=== PATIENT | male | born 1955 | race Caucasian/White ===

== ENCOUNTER → 2017-12-18 | Outpatient (CLI) | payer MEDICARE, BC ==
--- NOTE | 2017-12-18 17:47 | RADIOLOGY REPORT (SQ) ---
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 CONTRAST TYPE AND DOSE: contrast/concentration: Isovue 370.00 mg/ml; Total Contrast Delivered: 88.0 ml; Total Saline Delivered: 69.0 ml RENAL FUNCTION: Creatinine 0.9 TECHNIQUE: CT scan of the chest performed using helical scanning technique with dynamic intravenous contrast injection. Images reviewed with lung, soft tissue and bone windows. Reconstructed coronal a nd sagittal MPR images reviewed. All images stored on PACS. CT scan of the abdomen performed with intravenous and with oral contrastusing helical scanning techni que with dynamic intravenous contrast injection. Images reviewed with lung, soft tissue and bone win dows. Reconstructed coronal and sagittal MPR images reviewed. Delayed images for evaluation of the urinary system also acquired and evaluated. All images stored on PACS. All CT scanners at this facility use dose modulation, iterative reconstruction, and/or weight based d osing when appropriate to reduce radiation dose to as low as reasonably achievable (ALARA). [facility]: Dose Right [facility]: CareDose [facility]: Dose Right [facility]: Teradose 4D [facility]: [employer] RADIATION DOSE: CT Rad equipment meets quality standard of care and radiation dose reduction techniq ues were employed. CTDIvol: 8.5 - 9.5 mGy. DLP: 1029 mGy-cm. . LIMITATIONS: None. FINDINGS: CHEST: LUNGS AND PLEURA: No opacities, nodules, masses. No pneumothorax. No effusions. HILAR AND MEDIASTINAL STRUCTURES: Patient is post esophagectomy and gastric pull-through procedure wi th the stomach coursing along the posterior rightward mediastinum. HEART AND VASCULAR STRUCTURES: No cardiomegaly. Heavily calcified LAD and proximal circumflex brock ry arteries. No pericardial effusion. HARDWARE: None. THYROID AND OTHER SOFT TISSUES: No masses. No adenopathy. BONES: New OTHER: No other significant finding. ABDOMEN AND PELVIS: LIVER: Diffuse fatty infiltration of the liver with low attenuation. On axial image 29, a 2.4 x 1.5 cm nodule is present along the superficial surface right lobe liver segment 6. This is abnormal but nonspecific. Patient appears to be post resection left lobe liver. SPLEEN: Normal size. No focal lesions. PANCREAS: No masses. No significant calcifications. No adjacent inflammation or peripancreatic fluid collections. Pancreatic duct not dilated. GALLBLADDER: No identified stones by CT criteria. No inflammatory changes to suggest cholecystitis. ADRENAL GLANDS: No significant masses or asymmetry. RIGHT KIDNEY AND URETER: No solid masses. No significant calcification. No hydronephrosis or hydroure ter. LEFT KIDNEY AND URETER: No solid masses. No significant calcification. No hydronephrosis or hydrouret er. AORTA AND VESSELS: No aneurysm. No dissection. About 50% narrowing of the proximal celiac and proxim al superior mesenteric arteries is seen from atherosclerotic plaque. Duplicated right renal artery, single left renal artery. RETROPERITONEUM: No retroperitoneal adenopathy, hemorrhage or masses. BOWEL AND PERITONEAL CAVITY: Patient drank oral contrast. There is no evidence of bowel obstruction. APPENDIX: Normal. ABDOMINAL WALL: No masses. No hernias. BONES: No significant or acute findings. OTHER: No other significant finding. IMPRESSION: Post esophagectomy with gastric pull-through. Profound fatty infiltration of the liver. Along the superficial aspect right lobe liver segment 6, a 2.4 x 1.5 cm nodule is present of uncertain clinical significance. Comparison with any older outsid e studies would be useful for followup. Post resection left lobe liver. TECHNICAL DOCUMENTATION: JOB ID: [id number] Quality ID # [id number]: Final reports with documentation of one or more dose reduction techniques (e.g., Au tomated exposure control, adjustment of the mA and/or kV according to patient size, use of iterative reconstruction technique) 2010 [employer]- All Rights Reserved Reading location - IP/workstation name: [email or web address]
== END ==
LOC: RAD 08:55
PROVIDERS: ATTEND Internal Medicine Hematology & Oncology
DX: C15.5 Malignant neoplasm of lower third of esophagus (principal)
CPT/HCPCS: 71260; 74160; 82565

== ENCOUNTER 2019-03-13 11:47 | Emergency (ER) | payer MEDICARE, BC ==
[2019-03-13] MEDS ORDERED: NORMAL SALINE 1000 ML 1,000 ML IV ONE ×2 (12:05→15:35)
[2019-03-13 13:11] LABS: VENOUS BLOOD BASE EXCESS -1.4 mmol/L; VENOUS BLOOD HCO3 23.2 mmol/L (20-32); VENOUS BLOOD PH 7.39 (7.30-7.42)
[2019-03-13 13:12] LABS: ABSOLUTE BASOPHILS # (AUTO) 0.1 10^3/uL (0.0-0.2); ABSOLUTE LYMPHOCYTES (AUTO) 0.5 10^3/uL (0.5-4.7); ABSOLUTE MONOCYTES (AUTO) 0.8 10^3/uL (0.1-1.4); ABSOLUTE NEUT (AUTO) 7.9 10^3/uL (1.7-8.2); BASOPHILS % (AUTO) 0.6 % (0-2); EOSINOPHILS % (AUTO) 0.3 % (0-6); HEMATOCRIT 36.7 % (37.9-51.0); HEMOGLOBIN 13.2 g/dL (13.5-17.0); LYMPHOCYTES % (AUTO) 5.6 % (13-45); MEAN CORPUSCULAR HEMOGLOBIN 37.9 pg (27.0-33.4); MEAN CORPUSCULAR HGB CONC 35.9 g/dL (32.0-36.0); MEAN CORPUSCULAR VOLUME 106 fl (80-97); PLATELET COUNT 159 10^3/uL (150-450); RED BLOOD COUNT 3.48 10^6/uL (4.35-5.55); RED CELL DISTRIBUTION WIDTH 12.5 % (11.5-14.0); SEGMENTED NEUTROPHILS % (AUTO) 84.5 % (42-78); TOTAL CELLS COUNTED % (AUTO) 100 %; WHITE BLOOD COUNT 9.4 10^3/uL (4.0-10.5)
[2019-03-13 13:16] LABS: INTERNATIONAL RATION (INR) 1.15; PROTHROMBIN TIME 14.8 SEC (11.4-15.4)
[2019-03-13 13:36] LABS: ALBUMIN 4.4 g/dL (3.5-5.0); ALKALINE PHOSPHATASE 72 U/L (38-126); ANION GAP 16 (5-19); ASPARTATE AMINO TRANSFERASE 61 U/L (17-59); BILIRUBIN,DIRECT 1.4 mg/dL (0.0-0.4); BILIRUBIN,TOTAL 3.8 mg/dL (0.2-1.3); BLOOD UREA NITROGEN 25 mg/dL (7-20); CALCIUM 10.2 mg/dL (8.4-10.2); CARBON DIOXIDE 23 mmol/L (22-30); CHLORIDE 101 mmol/L (98-107); GLUCOSE 109 mg/dL (75-110); POTASSIUM 3.3 mmol/L (3.6-5.0); TOTAL PROTEIN 7.4 g/dL (6.3-8.2)
[2019-03-13] MEDS ORDERED: POTASSIUM CHLORIDE 10 MEQ CAPSULE.ER PO ONE ×2 (15:35→18:01)
--- NOTE | 2019-03-13 15:44 | ER Document Report ---
ED General - General TRAVEL OUTSIDE OF THE [place] IN LAST 30 DAYS: No <MARIANNE GOLDEN - Last Filed: 03/14/19 03:33> <LE EPPERSON - Last Filed: 03/14/19 18:27> - General Chief Complaint: Decreased Appetite Stated Complaint: WEAKNESS Time Seen by Provider: 03/13/19 15:11 - HPI Notes: Patient is a 63-year-old male, with a history of esophageal cancer, status post esophagectomy and gastric pull-through in 2013, who presents to the emergency department for evaluation of increased weakness, difficulty walking. 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 He states his been worsening over the last several weeks. He has had diminished p.o. intake, not really eating or drinking much. He states sometimes it hurts, sometimes is just "too hot to eat." He has occasional abdominal pain which is not out of the ordinary for him, primarily is his neuropathic pain. He has been taking extended release gabapentin for this, but is unsure as to whether or not he has been taking it for the last week or so. He is currently living alone, has no real resources. He is going to move in with his sister shortly. (MARIANNE GOLDEN) - Related Data Allergies/Adverse Reactions: No Known Allergies Allergy (Unverified 03/13/19 12:04) Past Medical History - Social History Smoking Status: Former Smoker Chew tobacco use (# tins/day): No Frequency of alcohol use: Occasional Drug Abuse: None Family History: Other - Lupus Patient has suicidal ideation: No Patient has homicidal ideation: No - Past Medical History Cardiac Medical History: Reports: Hx Hypercholesterolemia, Hx Hypertension Pulmonary Medical History: Reports: Hx COPD Malignancy Medical History: Reports Other - Esophageal cancer, s/p esophagectomy, chemo and radiation GI Medical History: Reports: Hx Gastroesophageal Reflux Disease Past Surgical History: Reports: Hx Orthopedic Surgery - L ankle, R hand, R elbow, Other - Esophagectomy with gastric pull through <MARIANNE GOLDEN - Last Filed: 03/14/19 03:33> Review of Systems - Review of Systems Constitutional: See HPI EENT: No symptoms reported Cardiovascular: No symptoms reported Respiratory: No symptoms reported Gastrointestinal: See HPI <MARIANNE GOLDEN - Last Filed: 03/14/19 03:33> Physical Exam <MARIANNE GOLDEN - Last Filed: 03/14/19 03:33> - Vital signs Vitals: Resp Pulse Ox 17 100 03/13/19 12:05 03/13/19 12:05 - Notes Notes: Vital signs reviewed, please refer to chart. Head is normocephalic, atraumatic. Pupils equal round, reactive to light. Neck is supple without meningismus. Heart is regular rate and rhythm. Lungs are clear to auscultation bilaterally. Abdomen is scaphoid, nontender, normoactive bowel sounds throughout. Extrem ities without cyanosis, clubbing. Posterior calves are nontender. Peripheral pulses are equal. Skin is warm and dry. Patient is awake, alert, oriented x3. Cranial nerves II - XII are grossly intact without focal neurological deficits. Strength is plus 3 out of 5 bilateral upper and lower extremities. Sensation is diminished to light touch to all 4 extremities. Reflexes symmetrical. Intact [id number], rapid alternating movements, [id number]. (MARIANNE GOLDEN) Course - Laboratory Result Diagrams: 03/13/19 12:55 03/13/19 12:55 - Diagnostic Test Radiology reviewed: Reports reviewed <MARIANNE GOLDEN - Last Filed: 03/14/19 03:33> - Laboratory Result Diagrams: 03/13/19 12:55 03/13/19 12:55 <LE EPPERSON - Last Filed: 03/14/19 18:27> - Re-evaluation Re-evalutation: 03/13/19 20:01 Presents emergency department for evaluation. He has significant overall weakness, is unable to stand. Is not a physical therapy or occupational therapy evaluations as of yet. He currently lives alone. He is going to move in with the sister, but they do not have any resources in place to make that happen sooner rather than later. He does not meet any admission criteria. I did go ahead and replace his potassium. His magnesium was found to be unremarkable. At this point he did get case management involved. They state that they are able to help him with resources but not at this time. It would have to wait until tomorrow morning. As he does not meet any admission criteria, will hold the patient is a social hold overnight. He is amenable to this plan. 03/14/19 01:33 I was notified by nursing that the patient was found down on the floor in the room. Evidently he attempted to urinate in the urinal, dropped the urinal. He called out for help, but none came, so he attempted to stand on his own to retrieve the urinal. He fell at that time. He is unsure but believes he may have lost consciousness. He complains of neck pain. He states his tennis is not up-to-date. I went to evaluate the patient and his c-collar was placed. CT scan of the head and neck were ordered. He does have a superficial 1.5 lace ration to the right lateral brow, no gaping wound, no foreign body. He does have a superficial 1 cm laceration to the right lower lip. No active bleeding. The patient complained of some nausea, Zofran given. Updated tetanus ordered. We will continue to monitor. (MARIANNE GOLDEN) - Vital Signs Vital signs: Temp Pulse Resp BP Pulse Ox 98.5 F 107 H 24 H 159/108 H 100 03/14/19 17:01 03/13/19 12:07 03/14/19 17:47 03/14/19 17:47 03/14/19 17:47 - Laboratory Laboratory results interpreted by me: 03/13/19 03/13/19 03/13/19 12:25 12:55 12:55 RBC 3.48 L Hgb 13.2 L Hct 36.7 L MCV 106 H MCH 37.9 H Lymph % (Auto) 5.6 L Seg Neutrophils % 84.5 H Potassium 3.3 L BUN 25 H POC Glucose 117 H Total Bilirubin 3.8 H Direct Bilirubin 1.4 H AST 61 H Urine Protein Urine Ketones Urine Urobilinogen 03/13/19 15:24 RBC Hgb Hct MCV MCH Lymph % (Auto) Seg Neutrophils % Potassium BUN POC Glucose Total Bilirubin Direct Bilirubin AST Urine Protein 30 H Urine Ketones 20 H Urine Urobilinogen 4.0 H - EKG Interpretation by Me Additional EKG results interpreted by me: 03/13/19 20:02 Sinus tachycardia with a rate of 140s per minute. Normal axis and intervals. Nonspecific ST changes, but no acute changes concerning for ischemia or infarction. (MARIANNE GOLDEN) Discharge <MARIANNE GOLDEN - Last Filed: 03/14/19 03:33> <LE EPPERSON - Last Filed: 03/14/19 18:27> - Discharge Clinical Impression: Generalized weakness, Polyneuropathy, Head injury, Facial abrasion, Strain of neck Failure to thrive Qualifiers: Failure to thrive age range: in adult Qualified Code(s): R62.7 - Adult failure to thrive Condition: Stable Disposition: HOME, SELF-CARE Instructions: Head Injury Precautions ([facility]), Neck Injury (Cervical Strain) ([facility]), Neuropathy ([facility]), Weakness ([facility]) Additional Instructions: You were evaluated here by case management, and further resources were made available. You need to continue to follow-up with primary care as well as pain management. Keep facial wound clean with soap and water. Follow-up with your primary care physician this week. Return to the ED with worsening or new concerning symptoms of any sort. Prescriptions: Oxycodone HCl/Acetaminophen [Percocet 5-325 mg Tablet] 1 tab PO Q4HP PRN #10 tablet PRN Reason:
[2019-03-13] MEDS ORDERED: GABAPENTIN 300 MG CAPSULE PO ONE ×2 (15:52→17:45)
[2019-03-13 16:09] LABS: APPEARANCE,URINE CLEAR; BILIRUBIN,URINE NEGATIVE (NEGATIVE); COLOR,URINE AMBER; GLUCOSE, URINE NEGATIVE (NEGATIVE); KETONES,URINE 20 mg/dL (NEGATIVE); LEUKOCYTE ESTERASE,URINE NEGATIVE (NEGATIVE); NITRITE,URINE NEGATIVE (NEGATIVE); PROTEIN,URINE 30 mg/dL (NEGATIVE); URINE SPECIFIC GRAVITY 1.025
[2019-03-13] MEDS ORDERED: KETOROLAC TROMETHAMINE INJ/PF 30 MG/1 ML SDV IV ONE (17:04)
--- NOTE | 2019-03-13 22:18 | EKG REPORT ---
SEVERITY:- BORDERLINE ECG - SINUS TACHYCARDIA BORDERLINE T WAVE ABNORMALITIES : Confirmed by: Jennifer Kapoor MD 13-Mar-2019 22:17:57
[2019-03-14] MEDS ORDERED: ONDANSETRON HCL INJ/PF 4 MG/2 ML SDV IV ONE (01:31)
[2019-03-14] MEDS ORDERED: DIPH/PERTUSS(ACELL)/TETANUS VAC/PF 0.5 ML SYR (>=10YO) IM ONE (01:32)
--- NOTE | 2019-03-14 02:22 | RADIOLOGY REPORT (SQ) ---
CT BRAIN AND CERVICAL SPINE EXAM DATE: 03/14/2019 1:32 AM CDT HISTORY: Trauma. COMPARISON: None. TECHNIQUE: CT scan of the brain and cervical spine without IV contrast. This exam was performed according to our departmental dose-optimization program, which includes automated exposure control, adjustment of the mA and/or kV according to patient size and/or use of iterative reconstruction technique. FINDINGS: BRAIN: The ventricles, cisterns, and sulci are age-appropriate. No evidence of acute infarction, intracranial hemorrhage, extra-axial fluid collection, or midline shift. No air-fluid levels are seen in the paranasal sinuses to suggest acute sinusitis. No depressed skull fracture. CERVICAL SPINE: No acute cervical fracture or prevertebral soft tissue swelling. There is straightening of the normal cervical lordosis, which may be due to cervical collar, muscle spasm, or patient positioning. The disc spaces and facet joints are grossly intact. No high-grade spinal canal stenosis. IMPRESSION: 1. No acute intracranial hemorrhage. 2. No acute fracture or subluxation of the cervical spine.
--- NOTE | 2019-03-14 15:03 | RADIOLOGY REPORT (SQ) ---
EXAM DESCRIPTION: CT SOFT TISSUE NECK WITH; CT CHEST WITH; CT ABD/PELVIS WITH IV ORAL COMPLETED DATE/TIME: 03/14/2019 2:46 pm REASON FOR STUDY: Hx CA esoph surg 5 yrs, can't swallow pills/food COMPARISON: CT chest and abdomen, 12/18/2017 CONTRAST TYPE AND DOSE: contrast/concentration: Isovue 350.00 mg/ml; Total Contrast Delivered: 77.0 ml; Total Saline Delivered: 67.0 ml RENAL FUNCTION: GFR > 60. TECHNIQUE: CT scan of the neck performed using helical scanning technique with dynamic intravenous c ontrast injection. Images reviewed with lung, soft tissue and bone windows. Reconstructed coronal an d sagittal MPR images reviewed. All images stored on PACS. CT scan of the chest performed using helical scanning technique with dynamic intravenous contrast inj ection. Images reviewed with lung, soft tissue and bone windows. Reconstructed coronal and sagittal MPR images reviewed. All images stored on PACS. CT scan of the abdomen and pelvis performed with intravenous and with oral contrastusing helical scan gerald technique with dynamic intravenous contrast injection. Images reviewed with lung, soft tissue a nd bone windows. Reconstructed coronal and sagittal MPR images reviewed. Delayed images for evaluat ion of the urinary system also acquired and evaluated. All images stored on PACS. All CT scanners at this facility use dose modulation, iterative reconstruction, and/or weight based d osing when appropriate to reduce radiation dose to as low as reasonably achievable (ALARA). [facility]: Dose Right [facility]: CareDose [facility]: Dose Right [facility]: Teradose 4D [facility]: [employer] RADIATION DOSE: CT Rad equipment meets quality standard of care and radiation dose reduction techniq ues were employed. CTDIvol: 11.6 - 13.9 mGy. DLP: 2275 mGy-cm. . LIMITATIONS: None. FINDINGS: NECK: SOFT TISSUES: There is a superficial cutaneous inclusion cyst of the posterior soft tissues of the l eft neck. No other mass or other abnormality. OROPHARYNX AND LARYNX: No abnormality. LYMPH NODES: No lymphadenopathy. VASCULAR STRUCTURES: Carotid atherosclerosis. BONES: Disc degenerative disease of the cervical spine. CHEST: LUNGS AND PLEURA: Mild centrilobular emphysema. No opacities, nodules, masses. No pneumothorax. No effusions. HILAR AND MEDIASTINAL STRUCTURES: No identified masses or abnormal nodes. Redemonstrated postoperati ve findings of pull-through esophagectomy. HEART AND VASCULAR STRUCTURES: No aneurysm or dissection. No central pulmonary emboli. No pericardi al effusion. Coronary artery calcifications. HARDWARE: None. THYROID AND OTHER SOFT TISSUES: No masses. No adenopathy. BONES: No significant finding. OTHER: Thoracic spinal stimulator. ABDOMEN AND PELVIS: LIVER: Status post partial left hepatectomy. No masses. No dilated ducts. SPLEEN: Normal size. No focal lesions. PANCREAS: No masses. No significant calcifications. No adjacent inflammation or peripancreatic fluid collections. Pancreatic duct not dilated. GALLBLADDER: No identified stones by CT criteria. No inflammatory changes to suggest cholecystitis. ADRENAL GLANDS: No significant masses or asymmetry. RIGHT KIDNEY AND URETER: No solid masses. No significant calcification. No hydronephrosis or hydroure ter. LEFT KIDNEY AND URETER: No solid masses. No significant calcification. No hydronephrosis or hydrouret er. AORTA AND VESSELS: No aneurysm. No dissection. Renal arteries, SMA, celiac without stenosis. Calcifi c atherosclerosis. RETROPERITONEUM: No retroperitoneal adenopathy, hemorrhage or masses. BOWEL AND PERITONEAL CAVITY: No masses or inflammatory changes. No free fluid or peritoneal masses. APPENDIX: Normal. ABDOMINAL WALL: No masses. No hernias. PELVIS: No mass or free fluid. Normal bladder. BONES: No significant or acute findings. OTHER: No other significant finding. IMPRESSION: Redemonstrated postoperative findings of pull-through esophagectomy. There is no suspic ious soft tissue or other abnormality to explain reported dysphagia. Consider additional interrogati on via endoscopic visualization and fluoroscopy if anastomotic stricture or recurrent malignancy are suspected. TECHNICAL DOCUMENTATION: JOB ID: [id number] Quality ID # [id number]: Final reports with documentation of one or more dose reduction techniques (e.g., Au tomated exposure control, adjustment of the mA and/or kV according to patient size, use of iterative reconstruction technique) 2010 [employer]- All Rights Reserved Reading location - IP/workstation name: [email or web address]
--- NOTE | 2019-03-14 18:23 | ER Document Report ---
Doctor's Note Notes: 03/14/19 18:13 Rounds: I assumed care for this patient when my shift began this morning at 9 AM. The plan at that time was for discharge planning to assist the patient and his sister in being able to take care of the patient in her home. His complaint they brought him to the emergency department last night was progressive weakness over the past several weeks and decreased oral intake. Patient's past history is significant and that he had esophageal cancer surgery in October 2013, apparently successfully removing the cancer, followed by radiation and chemotherapy. I spoke with Dr. Barragan, patient's local oncologist, who reviewed the patient's record and informed me that the patient had successful surgery for his cancer in October 2013. She saw him this past October and she said he is due to have CT scans to make sure he has not had any recurrence of his cancer. Patient had fallen earlier in the morning, before he came on duty and hit the right scalp and right face and so they did a CT scan of his head and C- spine. Dr. Barragan said that the patient needed to have CT scan of the chest neck, and abdomen and pelvis. All of the studies were ordered. They eventually came back showing no evidence of any acute process. Patient had no evidence of any recurrent cancer. Had no evidence of any obstruction or blockage to passage of food. 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 Patient says he is not able to swallow any of his medications in pill form. Also says he has trouble eating solid foods. Can drink liquids. Patient's labs showed slight hypokalemia and he was given oral potassium. He was also given a couple liters of saline to replenish any loss of fluids that has occurred over the past week or so. Examining the patient, trying to get him to stand up, patient seems to have significant wobbly legs and unable to bear weight without significant assistance by examiners. Otherwise no significant examination findings. Patient does have some tenderness of the mid right scalp and a small cut of his right lip. Discharge planning was asked to participate in the plan disposition of the patient. She was able to arrange for equipment for the patient such as a walker and wheelchair and a portable toilet. I am not sure what is causing the patient's weakness of his legs or his inability to swallow pills because there is nothing abnormal on his CT scan and all of his chemistries have been pretty m uch corrected. I do not have anything else I can think of doing here in the emergency department at this time. Explained this to the family and wanted out to them the need to establish with a primary care provider who can coordinate any further consultations, evaluations, and care. 03/15/19 13:42 Late entry recollection: when patient was here yesterday, and we attempted to have patient stand, I also checked his lower extremity reflexes and he had very weak patella and Achilles reflexes. No clonus. I am not sure of the reason for these findings, ?medication side effects? Doubtful [place]? Yaw Mandujano MD
[2019-03-14 21:19] VITALS: BP 154/96
== END 2019-03-14 21:20 | disposition home or self-care (01) ==
LOC: ER 11:47
DX: S00.81XA Abrasion of other part of head, initial encounter (principal); S16.1XXA Strain of muscle, fascia and tendon at neck level, initial encounter; G62.9 Polyneuropathy, unspecified; R53.1 Weakness; R62.7 Adult failure to thrive; R63.0 Anorexia; X58.XXXA Exposure to other specified factors, initial encounter; Z87.891 Personal history of nicotine dependence; I10 Essential (primary) hypertension; J44.9 Chronic obstructive pulmonary disease, unspecified
CPT/HCPCS: 93005; 36415; 87040; 87086; 82962; 83735; 85025; 85610; 80053; 81001; 84484; 82803; 83605; 70450; 70491; 71260; 72125; 74177; 90715; 93010; 97530; 97163; L0120; A9270 ×2; J1885; J2405; J7030

== ENCOUNTER 2019-03-15 01:55 | Inpatient (IN) | payer MEDICARE, BC ==
--- NOTE | 2019-03-15 06:20 | ER Document Report ---
ED General - General Chief Complaint: General Weakness Stated Complaint: WEAKNESS Time Seen by Provider: 03/15/19 05:56 TRAVEL OUTSIDE OF THE [place] IN LAST 30 DAYS: No - HPI Notes: worsening weakness over a period of weeks he and sister live in an apartment together he was seen in the ED and discharged, subsequently fell twice from chair to floor, and was returned to the ED he has a h/o esophageal cancer, chronic pain, and neuropathy he denies fever, vomiting, diarrhea, cough, or any focal areas of pain or weakness at ED visit yesterday/day before, he had extensive evaluation - CT of head through pelvis as well as labs and urine w/o identifiable reason for decline. - Related Data Allergies/Adverse Reactions: No Known Allergies Allergy (Unverified 03/13/19 12:04) Past Medical History - Social History Smoking Status: Former Smoker Family History: Other - Lupus Patient has suicidal ideation: No Patient has homicidal ideation: No - Past Medical History Cardiac Medical History: Reports: Hx Hypercholesterolemia, Hx Hypertension Pulmonary Medical History: Reports: Hx COPD GI Medical History: Reports: Hx Gastroesophageal Reflux Disease Past Surgical History: Reports: Hx Orthopedic Surgery - L ankle, R hand, R elbow, Other - Esophagectomy with gastric pull through Review of Systems - Review of Systems Constitutional: Weakness EENT: No symptoms reported Cardiovascular: No symptoms reported Respiratory: No symptoms reported Gastrointestinal: No symptoms reported Genitourinary: No symptoms reported Male Genitourinary: No symptoms reported Musculoskeletal: No symptoms reported Skin: No symptoms reported Hematologic/Lymphatic: No symptoms reported Neurological/Psychological: No symptoms reported Physical Exam - Vital signs Vitals: Temp Resp Pulse Ox 97.7 F 23 H 100 03/15/19 02:04 03/15/19 02:04 03/15/19 02:04 Interpretation: Normal - General General appearance: Alert Notes: generally weak and frail in appearance w/ tremulousness throughout - HEENT Head: Normocephalic, Atraumatic Eyes: Normal Pupils: PERRL - Respiratory Respiratory status: No respiratory distress Chest status: Nontender Breath sounds: Normal Chest palpation: Normal - Cardiovascular Rhythm: Regular Heart sounds: Normal auscultation Murmur: No - Abdominal Inspection: Normal Distension: No distension Bowel sounds: Normal Tenderness: Nontender Organomegaly: No organomegaly - Back Back: Normal, Nontender - Extremities General upper extremity: Normal inspection, Nontender, Normal color, Normal ROM, Normal temperature General lower extremity: Normal inspection, Nontender, Normal color, Normal ROM, Normal temperature, Normal weight bearing. No: Terrence's sign - Neurological Neuro grossly intact: Yes Cognition: Normal Orientation: AAOx4 Hanna Coma Scale Eye Opening: Spontaneous Hanna Coma Scale Verbal: Oriented Adele Coma Scale Motor: Obeys Commands Adele Coma Scale Total: 15 Speech: Normal Motor strength normal: LUE, RUE, LLE, RLE Sensory: Normal - Psychological Associated symptoms: Normal affect, Normal mood - Skin Skin Temperature: Warm Skin Moisture: Dry Skin Color: Normal Course - Re-evaluation Re-evalutation: 03/15/19 06:20 repeat labs and urine will be obtained as well as social work consult while in ED 03/15/19 07:59 Discussed w/ Ofelia Gnadara for admission. Rocephin started in ED for UTI - Vital Signs Vital signs: Temp Pulse Resp BP Pulse Ox 97.7 F 19 141/114 H 99 03/15/19 02:04 03/15/19 07:01 03/15/19 07:01 03/15/19 07:01 - Laboratory Result Diagrams: 03/15/19 02:28 03/15/19 02:28 Laboratory results interpreted by me: 03/15/19 03/15/19 03/15/19 02:28 02:28 06:49 RBC 3.26 L Hgb 12.2 L Hct 34.5 L MCV 106 H MCH 37.6 H Plt Count 142 L Seg Neuts % (Manual) 85 H Band Neutrophils % 1 L Lymphocytes % (Manual) 2 L Abs Lymphs (Manual) 0.2 L Potassium 3.5 L Carbon Dioxide 20 L Total Bilirubin 2.9 H Direct Bilirubin 1.2 H Ammonia Creatine Kinase 31 L Urine Ketones 20 H Urine Blood MODERATE H Urine Urobilinogen 4.0 H Ur Leukocyte Esterase LARGE H 03/15/19 07:06 RBC Hgb Hct MCV MCH Plt Count Seg Neuts % (Manual) Band Neutrophils % Lymphocytes % (Manual) Abs Lymphs (Manual) Potassium Carbon Dioxide Total Bilirubin Direct Bilirubin Ammonia < 8.7 L Creatine Kinase Urine Ketones Urine Blood Urine Urobilinogen Ur Leukocyte Esterase - Diagnostic Test Radiology results interpreted by me: 03/15/19 08:03 CT head w/o acute changes from recent study. no hemorrhage - EKG Interpretation by Me EKG shows normal: Sinus rhythm Rate: Tachycardia Rhythm: NSR Additional EKG results interpreted by me: 03/15/19 08:[address] segment changes or T wave changes - Consults No standard instances Time consulted: 07:57 - Ofelia Gandara Reason for consultation: 03/15/19 07:57 UTI w/ AMS Discharge - Discharge Clinical Impression: Altered mental status Qualifiers: Altered mental status type: disorientation Qualified Code(s): R41.0 - Disorientation, unspecified UTI (urinary tract infection) Qualifiers: Urinary tract infection type: acute cystitis Hematuria presence: without hematuria Qualified Code(s): N30.00 - Acute cystitis without hematuria Condition: Stable Disposition: ADMITTED INPATIENT Admitting Provider: Rowena (Hospitalist) Unit Admitted: Telemetry
[2019-03-15 07:07] LABS: HEMATOCRIT 34.5 % (37.9-51.0); HEMOGLOBIN 12.2 g/dL (13.5-17.0); MEAN CORPUSCULAR HEMOGLOBIN 37.6 pg (27.0-33.4); MEAN CORPUSCULAR HGB CONC 35.5 g/dL (32.0-36.0); MEAN CORPUSCULAR VOLUME 106 fl (80-97); PLATELET COUNT 142 10^3/uL (150-450); RED BLOOD COUNT 3.26 10^6/uL (4.35-5.55); RED CELL DISTRIBUTION WIDTH 12.6 % (11.5-14.0); WHITE BLOOD COUNT 8.2 10^3/uL (4.0-10.5)
[2019-03-15 07:11] LABS: ALKALINE PHOSPHATASE 72 U/L (38-126); ANION GAP 18 (5-19); ASPARTATE AMINO TRANSFERASE 42 U/L (17-59); BILIRUBIN,DIRECT 1.2 mg/dL (0.0-0.4); BILIRUBIN,TOTAL 2.9 mg/dL (0.2-1.3); BLOOD UREA NITROGEN 16 mg/dL (7-20); CALCIUM 9.9 mg/dL (8.4-10.2); CARBON DIOXIDE 20 mmol/L (22-30); CHLORIDE 100 mmol/L (98-107); CREATINE KINASE 31 U/L (55-170); GLUCOSE 110 mg/dL (75-110); POTASSIUM 3.5 mmol/L (3.6-5.0); TOTAL PROTEIN 6.9 g/dL (6.3-8.2)
[2019-03-15 07:18] LABS: APPEARANCE,URINE CLOUDY; BILIRUBIN,URINE NEGATIVE (NEGATIVE); GLUCOSE, URINE NEGATIVE (NEGATIVE); KETONES,URINE 20 mg/dL (NEGATIVE); LEUKOCYTE ESTERASE,URINE LARGE (NEGATIVE); NITRITE,URINE NEGATIVE (NEGATIVE); PROTEIN,URINE NEGATIVE (NEGATIVE); URINE SPECIFIC GRAVITY 1.029
[2019-03-15 07:24] LABS: ADD MANUAL MICROSCOPIC YES
[2019-03-15 07:31] LABS: BACTERIA,URINE 3+ /HPF; COLOR,URINE DARK YELLOW; RBC,URINE 0-1 /HPF
[2019-03-15 07:34] LABS: ABSOLUTE MONOCYTES # (MANUAL) 0.7 10^3/uL (0.1-1.4); BAND NEUTROPHILS % (MANUAL) 1 % (3-5); BASOPHILS % (MANUAL) 1 % (0-2); EOSINOPHILS % (MANUAL) 2 % (0-6); LYMPHOCYTES % (MANUAL) 2 % (13-45); MONOCYTES % (MANUAL) 9 % (3-13); SEGMENTED NEUTROPHILS % (MAN) 85 % (42-78); TOTAL CELLS COUNTED 100
[2019-03-15 07:35] LABS: ABSOLUTE LYMPHOCYTES# (MANUAL) 0.2 10^3/uL (0.5-4.7); TOXIC VACUOLATION PRESENT
[2019-03-15 07:36] LABS: PLATELET COMMENT DECREASED; POLYCHROMASIA SLIGHT
[2019-03-15] MEDS ORDERED: CEFTRIAXONE 1 GM/D5W RTU 1 GM/50 ML RTUPB IV ONE (07:56)
--- NOTE | 2019-03-15 07:59 | RADIOLOGY REPORT (SQ) ---
EXAM DESCRIPTION: CT HEAD WITHOUT IV CONTRAST COMPLETED DATE/TME: 03/15/2019 06:51 CLINICAL HISTORY: 63 years, Male, altered mental status COMPARISON: 03/14/2019 TECHNIQUE: Axial CT images of the brain were obtained without contrast. Sagittal and coronal reformats were performed. DLP 990 Images stored on PACS. All CT scanners at this facility use dose modulation, iterative reconstruction, and/or weight based dosing when appropriate to reduce radiation dose to as low as reasonably achievable (ALARA). [facility]: Dose Right [facility]: CareDose [facility]: Dose Right [facility]: Teradose 4D [facility]: [employer] LIMITATIONS: None. FINDINGS: There is no acute cortical infarct, hemorrhage, mass, edema, hydrocephalus, or extra-axial fluid collection. The henry-white matter differentiation is preserved. There is mild diffuse cerebral atrophy with mild periventricular and deep white matter chronic microvascular changes. There is a old lacunar infarct involving the left basal ganglia. The paranasal sinuses and mastoid air cells are clear. There is no acute fracture. IMPRESSION: No acute intracranial abnormality TECHNICAL DOCUMENTATION: Quality ID # [id number]: Final reports with documentation of one or more dose reduction techniques (e.g., Automated exposure control, adjustment of the mA and/or kV according to patient size, use of iterative reconstruction technique) copyright 2011 [facility] [employer]- All Rights Reserved
--- NOTE | 2019-03-15 08:46 | EKG REPORT ---
SEVERITY:- ABNORMAL ECG - SINUS TACHYCARDIA PROLONGED QT INTERVAL : Confirmed by: Jennifer Kapoor MD 15-Mar-2019 08:45:19
[2019-03-15] MEDS ORDERED: ALBUTEROL SULFATE 0.083% NEB 2.5 MG/3 ML AMPUL NEB PRN (10:04)
[2019-03-15] MEDS ORDERED: ONDANSETRON HCL INJ/PF 4 MG/2 ML SDV IV PRN (10:04)
[2019-03-15] MEDS ORDERED: PROMETHAZINE HCL INJ 25 MG/1 ML VIAL IV PRN (10:04)
[2019-03-15] MEDS ORDERED: ACETAMINOPHEN 325 MG TABLET PO PRN (10:04)
[2019-03-15] MEDS: NORMAL SALINE 1000 ML 1,000 ML IV PRN (11:00)
[2019-03-15] MEDS ORDERED: HYDRALAZINE HCL INJ/PF 20 MG/1 ML SDV IV PRN (17:32)
[2019-03-15] MEDS ORDERED: (PENDING PHARMACY ID) (Tapentadol Hydrochloride [Nucynta] 50 MG) PO PRN (17:51)
--- NOTE | 2019-03-15 17:53 | PDOC H&P ---
History of Present Illness Admission Date/PCP: 03/15/19 08:52 History of Present Illness: SIMONA SHIRLEY is a 63 year old male with a past medical history of hypertension, hyperlipidemia, esophageal cancer post surgical and chemotherapy intervention with resultant polyneuropathy and opiate dependent chronic pain who presented to the emergency department today with a complaint of increased weakness and confusion noted this morning. The patient had been discharged the day prior after spending 2 days in the emergency department as a social hold for failure to thrive and generalized weakness; he had an extensive and unremarkable work-up done at that time. Ultimately it was decided that the patient would discharge to home with [facility] [place] [place] and home health services. Evaluation today by the emergency department provider revealed Hypertension, tachycardia, increased confusion from baseline though oriented x4, baseline anemia, essentially unremarkable chemistry, and a urinalysis that is suggestive of urinary tract infection. He is started on IV fluids and provided Rocephin. He is referred to the hospitalist service for admission and management of the above-stated complaints and findings. Past Medical History Cardiac Medical History: Reports: Hyperlipidema, Hypertension Pulmonary Medical History: Reports: Chronic Obstructive Pulmonary Disease (COPD) EENT Medical History: Reports: None Neurological Medical History: Denies: Ischemic CVA, Seizures Endocrine Medical History: Reports: None Renal/ Medical History: Reports: None Malignancy Medical History: Reports: Other - Esophageal GI Medical History: Reports: Gastroesophageal Reflux Disease Past Surgical History Past Surgical History: Reports: Orthopedic Surgery - L ankle, R hand, R elbow, Other - Esophagectomy with gastric pull through Social History Information Source: Patient, [facility] Records Lives with: Alone Smoking Status: Former Smoker Frequency of Alcohol Use: None Hx Recreational Drug Use: No Drugs: None Hx Prescription Drug Abuse: No - Advance Directive Resuscitation Status: Full Code Surrogate healthcare decision maker:: The patient's sister. Family History Family History: Other - Lupus Parental Family History Reviewed: Yes Children Family History Reviewed: Yes Sibling(s) Family History Reviewed.: Yes Medication/Allergy Home Medications: Cyanocobalamin/FA/Pyridoxine [Folbee Tablet] 1 tab PO DAILY 03/14/19 Tapentadol Hydrochloride [Nucynta] 50 mg PO TIDP PRN 03/14/19 Duloxetine HCl [Cymbalta 30 mg Capsule.dr] 30 mg PO DAILY 03/15/19 Allergies/Adverse Reactions: No Known Allergies Allergy (Unverified 03/13/19 12:04) Review of Systems Constitutional: PRESENT: weakness. ABSENT: chills, fever(s), headache(s), weight gain, weight loss Eyes: ABSENT: visual disturbances Ears: ABSENT: hearing changes Cardiovascular: ABSENT: chest pain, dyspnea on exertion, edema, orthropnea, palpitations Respiratory: ABSENT: cough, hemoptysis Gastrointestinal: ABSENT: abdominal pain, constipation, diarrhea, hematemesis, hematochezia, nausea, vomiting Genitourinary: ABSENT: dysuria, hematuria Musculoskeletal: ABSENT: joint swelling Integumentary: ABSENT: rash, wounds Neurological: PRESENT: confusion, paresthesias, weakness. ABSENT: abnormal gait, abnormal speech, dizziness, focal weakness, syncope Psychiatric: ABSENT: anxiety, depression, homidical ideation, suicidal ideation Endocrine: ABSENT: cold intolerance, heat intolerance, polydipsia, polyuria Hematologic/Lymphatic: ABSENT: easy bleeding, easy bruising Physical Exam Vital Signs: Temp Pulse Resp BP Pulse Ox 97.8 F 107 H 14 156/121 H 100 03/15/19 08:30 03/15/19 15:30 03/15/19 13:45 03/15/19 12:30 03/15/19 13:45 Intake & Output 03/14/19 03/15/19 03/16/19 06:59 06:59 06:59 Intake Total 50 Balance 50 Weight 66.7 kg General appearance: PRESENT: no acute distress, cooperative - Pleasant, thin, well-developed, well-nourished Head exam: PRESENT: atraumatic, normocephalic Eye exam: PRESENT: conjunctiva pink, EOMI, PERRLA. ABSENT: scleral icterus Ear exam: PRESENT: normal external ear exam Mouth exam: PRESENT: moist, tongue midline Teeth exam: PRESENT: poor dentation Neck exam: ABSENT: carotid bruit, JVD, lymphadenopathy, thyromegaly Respiratory exam: PRESENT: clear to auscultation kevin, symmetrical, unlabored. ABSENT: rales, rhonchi, wheezes Cardiovascular exam: PRESENT: RRR, +S1, +S2, tachycardia - 100-110. ABSENT: diastolic murmur, rubs, systolic murmur Pulses: PRESENT: normal dorsalis pedis pul Vascular exam: PRESENT: normal capillary refill GI/Abdominal exam: PRESENT: normal bowel sounds, soft. ABSENT: distended, guarding, mass, organolmegaly, rebound, tenderness Rectal exam: PRESENT: deferred Extremities exam: PRESENT: full ROM. ABSENT: calf tenderness, clubbing, pedal edema Neurological exam: PRESENT: alert, awake, oriented to person, oriented to place, oriented to time, oriented to situation, CN II-XII grossly intact, other - Intermittent confusion, forgetfulness. ABSENT: motor sensory deficit Psychiatric exam: PRESENT: appropriate affect, normal mood. ABSENT: homicidal ideation, suicidal ideation Skin exam: PRESENT: dry, intact, warm. ABSENT: cyanosis, rash Results Laboratory Results: 03/15/19 02:28 03/15/19 02:28 03/15/19 03/15/19 03/15/19 02:28 02:28 02:28 WBC 8.2 RBC 3.26 L Hgb 12.2 L Hct 34.5 L MCV 106 H MCH 37.6 H MCHC 35.5 RDW 12.6 Plt Count 142 L Seg Neutrophils % Not Reportable Sodium 137.6 Potassium 3.5 L Chloride 100 Carbon Dioxide 20 L Anion Gap 18 BUN 16 Creatinine 0.68 Est GFR ( Amer) > 60 Glucose 110 Lactic Acid 2.0 Calcium 9.9 Total Bilirubin 2.9 H AST 42 Alkaline Phosphatase 72 Ammonia Total Protein 6.9 Albumin 4.0 Urine Color Urine Appearance Urine pH Ur Specific Quinn Urine Protein Urine Glucose (UA) Urine Ketones Urine Blood Urine Nitrite Ur Leukocyte Esterase 03/15/19 03/15/19 06:49 07:06 WBC RBC Hgb Hct MCV MCH MCHC RDW Plt Count Seg Neutrophils % Sodium Potassium Chloride Carbon Dioxide Anion Gap BUN Creatinine Est GFR ( Amer) Glucose Lactic Acid Calcium Total Bilirubin AST Alkaline Phosphatase Ammonia < 8.7 L Total Protein Albumin Urine Color DARK YELLOW Urine Appearance CLOUDY Urine pH 6.0 Ur Specific Quinn 1.029 Urine Protein NEGATIVE Urine Glucose (UA) NEGATIVE Urine Ketones 20 H Urine Blood MODERATE H Urine Nitrite NEGATIVE Ur Leukocyte Esterase LARGE H 03/15/19 03/15/19 02:28 02:28 Creatine Kinase 31 L Troponin I < 0.012 Impressions: Head CT 03/15/19 06:51 IMPRESSION: No acute intracranial abnormality TECHNICAL DOCUMENTATION: Quality ID # 436: Final reports with documentation of one or more dose reduction techniques (e.g., Automated exposure control, adjustment of the mA and/or kV according to patient size, use of iterative reconstruction technique) copyright 2010 [employer] [facility] [employer]- All Rights Reserved Assessment and Plan - Diagnosis (1) UTI (urinary tract infection) Qualifiers: Urinary tract infection type: acute cystitis Hematuria presence: without hematuria Qualified Code(s): N30.00 - Acute cystitis without hematuria Is this a current diagnosis for this admission?: Yes Plan: Urinalysis reveals UTI. Urine and blood cultures are pending. Patient is admitted to the medical floor on continuous cardiac telemetry. He is empirically placed on IV Rocephin. We will provide gentle IV fluids. (2) Altered mental status Qualifiers: Altered mental status type: disorientation Qualified Code(s): R41.0 - Disorientation, unspecified Is this a current diagnosis for this admission?: Yes Plan: At the time of my visit, patient was a no x4 though with periods of intermittent/transient confusion and forgetfulness. Likely secondary to urinary tract infection. Head CT was negative for acute CVA, though does demonstrate mild diffuse cerebral atrophy with mild chronic microvascular changes and an old lacunar infarct in involving left basal ganglia. The patient does not show facial asymmetry or other focal deficits; low suspicion for acute CVA. May need to consider MRI imaging if confusion does not improve with treatment of urinary tract infection. Supportive care. Fall precautions. Discharge planning is consulted. (3) Failure to thrive Qualifiers: Failure to thrive age range: in adult Qualified Code(s): R62.7 - Adult failure to thrive Is this a current diagnosis for this admission?: Yes Plan: Unclear etiology. May be related to vascular dementia and old lacunar infarcts as noted on CT imaging. The patient had a CT of the chest, cervical spine, abdomen/pelvis, soft tissue of the neck, and head CT all done this week with benign results. He does have a history of esophageal cancer with gastric pull-through. PT/OT/ST therapy services are consulted. Registered dietitian is consulted. Discharge planning is consulted. Consider low-dose Remeron for depression/anxiety/appetite stimulation. (4) Generalized weakness Is this a current diagnosis for this admission?: Yes Plan: As above. Fall precautions. 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 We will resume the patient's home medication regiment once reconciled. Analgesics as needed. (6) HTN (hypertension) Qualifiers: Hypertension type: essential hypertension Qualified Code(s): I10 - Essential (primary) hypertension Is this a current diagnosis for this admission?: Yes Plan: The patient endorses a history of hypertension, he is not noted to be on home antihypertensive therapy. Blood pressures are elevated today; 156/121. We will start lisinopril. IV hydralazine as needed for blood pressure control. - Time Time Spent with patient: 35 or more minutes Medications reviewed and adjusted accordingly: Yes Anticipated discharge: Home with Homehealth - vs SNF for short term rehab Within: within 72 hours - Inpatient Certification Based on my medical assessment, after consideration of the patient's comorbidities, presenting symptoms, or acuity I expect that the services needed warrant INPATIENT care.: Yes I certify that my determination is in accordance with my understanding of Medicare's requirements for reasonable and necessary INPATIENT services [42 CFR 412.3e].: Yes Medical Necessity: Need For IV Fluids, Need for IV Antibiotics
[2019-03-15] MEDS: NYSTATIN 500000 UNIT/5 ML UDCUP PO SCH ×3 (18:32→21:14)
[2019-03-15] MEDS: HEPARIN SOD (PORCINE) 5,000 UNIT/ML 1 ML VIAL SUBCUT SCH ×2 (18:33→21:11)
[2019-03-15] MEDS: LISINOPRIL 10 MG TABLET PO SCH (18:37)
[2019-03-15] MEDS: OXYCODONE HCL IR 5 MG TABLET PO PRN (20:08)
[2019-03-16] MEDS: NORMAL SALINE 1000 ML 1,000 ML IV PRN ×2 (03:00→15:06)
[2019-03-16 05:47] LABS: HEMATOCRIT 31.9 % (37.9-51.0); HEMOGLOBIN 11.6 g/dL (13.5-17.0); MEAN CORPUSCULAR HEMOGLOBIN 37.9 pg (27.0-33.4); MEAN CORPUSCULAR HGB CONC 36.3 g/dL (32.0-36.0); MEAN CORPUSCULAR VOLUME 104 fl (80-97); PLATELET COUNT 128 10^3/uL (150-450); RED BLOOD COUNT 3.06 10^6/uL (4.35-5.55); RED CELL DISTRIBUTION WIDTH 12.6 % (11.5-14.0); WHITE BLOOD COUNT 6.5 10^3/uL (4.0-10.5)
[2019-03-16 06:15] LABS: ANION GAP 12 (5-19); BLOOD UREA NITROGEN 14 mg/dL (7-20); CALCIUM 9.4 mg/dL (8.4-10.2); CARBON DIOXIDE 23 mmol/L (22-30); CHLORIDE 104 mmol/L (98-107); GLUCOSE 109 mg/dL (75-110); POTASSIUM 3.2 mmol/L (3.6-5.0)
[2019-03-16] MEDS: HEPARIN SOD (PORCINE) 5,000 UNIT/ML 1 ML VIAL SUBCUT SCH ×3 (06:24→23:11)
[2019-03-16] MEDS: OXYCODONE HCL IR 5 MG TABLET PO PRN ×2 (07:55→20:02)
[2019-03-16] MEDS ORDERED: POTASSIUM CHLORIDE 10 MEQ CAPSULE.ER PO ONE (08:30)
[2019-03-16] MEDS: CYANOCOBALAMIN/FA/PYRIDOXINE TABLET PO SCH (10:29)
[2019-03-16] MEDS: CEFTRIAXONE 1 GM/D5W RTU 1 GM/50 ML RTUPB IV SCH (10:29)
[2019-03-16] MEDS: DULOXETINE HCL 30 MG CAPSULE.DR PO SCH (10:29)
[2019-03-16] MEDS: DOCUSATE SODIUM 100 MG/10 ML UDC PO SCH (10:29)
[2019-03-16] MEDS: NYSTATIN 500000 UNIT/5 ML UDCUP PO SCH ×4 (10:29→23:15)
[2019-03-16] MEDS: LISINOPRIL 10 MG TABLET PO SCH ×2 (10:29→14:57)
--- NOTE | 2019-03-16 18:04 | PDOC PROGRESS REPORT ---
Subjective Progress Note for:: 03/16/19 Subjective:: SIMONA SHIRLEY is a 63 year old male with a past medical history of hypertension, hyperlipidemia, esophageal cancer post surgical and chemotherapy intervention with resultant polyneuropathy and opiate dependent chronic pain who was admitted 03/15/2019 for altered mental status and urinary tract infection. Patient was seen on morning rounds. He is found resting in bed comfortably on room air. He is alert and oriented x4, though conversationally is noted to be confused. He reports fatigue and generalized weakness; otherwise, he has no complaints or concerns at this time. He denies fever, chills, chest pain, palpitations, abdominal pain, nausea vomiting and diarrhea. No concerns per nursing. Reason For Visit: UTI,DEHYDRATION,WEAKNESS Physical Exam Vital Signs: Temp Pulse Resp BP Pulse Ox 97.8 F 108 H 20 161/92 H 100 03/16/19 17:41 03/16/19 17:41 03/16/19 17:41 03/16/19 17:41 03/16/19 17:41 Intake & Output 03/15/19 03/16/19 03/17/19 06:59 06:59 06:59 Intake Total 1310 170 Output Total 100 Balance 1310 70 Weight 66.7 kg 66.5 kg General appearance: PRESENT: no acute distress, cooperative - Was, thin, well- developed, well-nourished Head exam: PRESENT: atraumatic, normocephalic Eye exam: PRESENT: conjunctiva pink, EOMI, PERRLA. ABSENT: scleral icterus Ear exam: PRESENT: normal external ear exam Mouth exam: PRESENT: moist, tongue midline, other - Thrush Teeth exam: PRESENT: poor dentation Neck exam: ABSENT: carotid bruit, JVD, lymphadenopathy, thyromegaly Respiratory exam: PRESENT: clear to auscultation kevin, symmetrical, unlabored. ABSENT: rales, rhonchi, wheezes Cardiovascular exam: PRESENT: RRR, +S1, +S2. ABSENT: diastolic murmur, rubs, systolic murmur Pulses: PRESENT: normal dorsalis pedis pul Vascular exam: PRESENT: normal capillary refill GI/Abdominal exam: PRESENT: normal bowel sounds, soft. ABSENT: distended, guarding, mass, organolmegaly, rebound, tenderness Rectal exam: PRESENT: deferred Extremities exam: PRESENT: full ROM. ABSENT: calf tenderness, clubbing, pedal edema Neurological exam: PRESENT: alert, awake, oriented to person, oriented to place, oriented to time, oriented to situation, CN II-XII grossly intact, other - confused and forgetful. ABSENT: motor sensory deficit Psychiatric exam: PRESENT: appropriate affect, normal mood. ABSENT: homicidal ideation, suicidal ideation Skin exam: PRESENT: dry, intact, warm. ABSENT: cyanosis, rash Results Laboratory Results: 03/16/19 05:22 03/16/19 05:22 03/16/19 03/16/19 03/16/19 05:22 05:22 05:22 WBC 6.5 RBC 3.06 L Hgb 11.6 L Hct 31.9 L MCV 104 H MCH 37.9 H MCHC 36.3 H RDW 12.6 Plt Count 128 L Sodium 138.7 Potassium 3.2 L Chloride 104 Carbon Dioxide 23 Anion Gap 12 BUN 14 Creatinine 0.49 L Est GFR ( Amer) > 60 Glucose 109 Calcium 9.4 Phosphorus 3.0 Magnesium 1.6 TSH 1.45 03/15/19 03/15/19 02:28 02:28 Creatine Kinase 31 L Troponin I < 0.012 Impressions: Head CT 03/15/19 06:51 IMPRESSION: No acute intracranial abnormality TECHNICAL DOCUMENTATION: Quality ID # [id number]: Final reports with documentation of one or more dose reduction techniques (e.g., Automated exposure control, adjustment of the mA and/or kV according to patient size, use of iterative reconstruction technique) copyright 2011 [employer]- All Rights Reserved Assessment and Plan - Diagnosis (1) UTI (urinary tract infection) Qualifiers: Urinary tract infection type: acute cystitis Hematuria presence: without hematuria Qualified Code(s): N30.00 - Acute cystitis without hematuria Is this a current diagnosis for this admission?: Yes Plan: Urinalysis reveals UTI. Urine culture positive for gram-positive cocci in chains Blood cultures (2 of 4 bottles) show gram-positive cocci chains Patient is admitted to the medical floor on continuous cardiac telemetry. He is empirically placed on IV Rocephin. Will escalate therapy to include IV Zosyn for coverage of gram-positive organisms. We will provide gentle IV fluids. (2) Altered mental status Qualifiers: Altered mental status type: disorientation Qualified Code(s): R41.0 - Disorientation, unspecified Is this a current diagnosis for this admission?: Yes Plan: Secondary to urinary tract infection and bacteremia At the time of my visit, patient was a no x4 though with periods of intermitte nt/transient confusion and forgetfulness. Head CT was negative for acute CVA, though does demonstrate mild diffuse cerebral atrophy with mild chronic microvascular changes and an old lacunar infarct in involving left basal ganglia. The patient does not show facial asymmetry or other focal deficits; low suspicion for acute CVA. May need to consider MRI imaging if confusion does not improve with treatment of urinary tract infection. Supportive care. Fall precautions. Discharge planning is consulted. (3) Failure to thrive Qualifiers: Failure to thrive age range: in adult Qualified Code(s): R62.7 - Adult failure to thrive Is this a current diagnosis for this admission?: Yes Plan: Unclear etiology. May be related to vascular dementia and old lacunar infarcts as noted on CT imaging. The patient had a CT of the chest, cervical spine, abdomen/pelvis, soft tissue of the neck, and head CT all done this week with benign results. He does have a history of esophageal cancer with gastric pull-through. PT/OT/ST therapy services are consulted. Registered dietitian is consulted. Discharge planning is consulted. Consider low-dose Remeron for depression/anxiety/appetite stimulation. (4) Generalized weakness Is this a current diagnosis for this admission?: Yes Plan: As above. Fall precautions. 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 We will resume the patient's home medication regiment once reconciled. Analgesics as needed. (6) HTN (hypertension) Qualifiers: Hypertension type: essential hypertension Qualified Code(s): I10 - Essential (primary) hypertension Is this a current diagnosis for this admission?: Yes Plan: The patient endorses a history of hypertension, he is not noted to be on home antihypertensive therapy. Blood pressures are elevated today; though slightly improved as compared to yesterday. Increased dose lisinopril. IV hydralazine as needed for blood pressure control. (7) Thrush Is this a current diagnosis for this admission?: Yes Plan: Continue Nystatin swish/swallows. (8) Bacteremia Is this a current diagnosis for this admission?: Yes Plan: Blood cultures (2/4 bottles) show gram positive cocci in chains. Urine culture with same. Patient did have recent dental work w/ development of thrush and gum/gingival pain. No obvious abscess on exam. ?Possible source of bacteremia w/ seeding into urine Continue Rocephin Have added Zosyn. Will need to repeat blood cultures in 24 hours. May need to consider TTE/CAROLE to eval for vegetation - Time Time Spent with patient: 25-34 minutes Medications reviewed and adjusted accordingly: Yes
[2019-03-16] MEDS ORDERED: PIPERACILLIN/TAZOBACTAM 3.375 GM VIAL IV PRN (18:34)
[2019-03-16] MEDS ORDERED: PIPERACILLIN/TAZOBACTAM 3.375 GM VIAL IV ONE (18:55)
[2019-03-16] MEDS: PIPERACILLIN SODIUM/TAZOBACTAM 3.375 GM in NORMAL SALINE 100 ML IV SCH (19:55)
[2019-03-17] MEDS: PIPERACILLIN SODIUM/TAZOBACTAM 3.375 GM in NORMAL SALINE 100 ML IV SCH ×2 (01:38→05:56)
[2019-03-17] MEDS: OXYCODONE HCL IR 5 MG TABLET PO PRN ×2 (03:03→18:38)
[2019-03-17] MEDS: HEPARIN SOD (PORCINE) 5,000 UNIT/ML 1 ML VIAL SUBCUT SCH ×3 (05:45→21:30)
[2019-03-17 05:58] LABS: HEMATOCRIT 37.7 % (37.9-51.0); HEMOGLOBIN 13.5 g/dL (13.5-17.0); MEAN CORPUSCULAR HEMOGLOBIN 37.3 pg (27.0-33.4); MEAN CORPUSCULAR HGB CONC 35.7 g/dL (32.0-36.0); MEAN CORPUSCULAR VOLUME 105 fl (80-97); PLATELET COUNT 107 10^3/uL (150-450); RED BLOOD COUNT 3.61 10^6/uL (4.35-5.55); RED CELL DISTRIBUTION WIDTH 12.8 % (11.5-14.0); WHITE BLOOD COUNT 6.5 10^3/uL (4.0-10.5)
[2019-03-17 06:09] LABS: ANION GAP 14 (5-19); BLOOD UREA NITROGEN 7 mg/dL (7-20); CALCIUM 9.3 mg/dL (8.4-10.2); CARBON DIOXIDE 20 mmol/L (22-30); CHLORIDE 105 mmol/L (98-107); GLUCOSE 114 mg/dL (75-110); POTASSIUM 3.4 mmol/L (3.6-5.0)
[2019-03-17] MEDS: DOCUSATE SODIUM 100 MG/10 ML UDC PO SCH (10:36)
[2019-03-17] MEDS: NYSTATIN 500000 UNIT/5 ML UDCUP PO SCH ×4 (10:36→21:30)
[2019-03-17] MEDS: DULOXETINE HCL 30 MG CAPSULE.DR PO SCH (10:37)
[2019-03-17] MEDS: LISINOPRIL 10 MG TABLET PO SCH (10:37)
[2019-03-17] MEDS: CYANOCOBALAMIN/FA/PYRIDOXINE TABLET PO SCH (10:37)
[2019-03-17] MEDS: CEFTRIAXONE 1 GM/D5W RTU 1 GM/50 ML RTUPB IV SCH (10:37)
[2019-03-17] MEDS: NORMAL SALINE 1000 ML 1,000 ML IV PRN ×2 (10:38→19:00)
--- NOTE | 2019-03-17 14:24 | PDOC PROGRESS REPORT ---
Subjective Progress Note for:: 03/17/19 Subjective:: SIMONA SHIRLEY is a 63 year old male with a past medical history of hypertension, hyperlipidemia, esophageal cancer post surgical and chemotherapy intervention with resultant polyneuropathy and opiate dependent chronic pain who was admitted 03/15/2019 for altered mental status and urinary tract infection. Patient was seen on morning rounds. He is found resting in bed comfortably on room air. He is alert and oriented x4. He is noted to have increased slurred speech today, does not make eye contact, is very agitated; reports that he is frustrated and had urinary incontinence which he states is new and worsened bilateral hand paresthesia. He denies fever, chills, chest pain, palpitations, abdominal pain, nausea vomiting and diarrhea. No concerns per nursing. Reason For Visit: UTI,DEHYDRATION,WEAKNESS Physical Exam Vital Signs: Temp Pulse Resp BP Pulse Ox 97.9 F 107 H 19 150/87 H 100 03/17/19 10:51 03/17/19 10:51 03/17/19 10:51 03/17/19 10:51 03/17/19 10:51 Intake & Output 03/16/19 03/17/19 03/18/19 06:59 06:59 06:59 Intake Total 1310 2850 50 Output Total 1300 Balance 1310 1550 50 Weight 66.5 kg 66 kg General appearance: PRESENT: no acute distress, disheveled, well-developed, well-nourished Head exam: PRESENT: atraumatic, normocephalic Eye exam: PRESENT: conjunctiva pink, EOMI, PERRLA, other - Ecchymosis to right eye; abrasion to right eyebrow. ABSENT: scleral icterus Ear exam: PRESENT: normal external ear exam Mouth exam: PRESENT: moist, tongue midline Teeth exam: PRESENT: poor dentation Neck exam: ABSENT: carotid bruit, JVD, lymphadenopathy, thyromegaly Respiratory exam: PRESENT: clear to auscultation kevin, symmetrical, unlabored. ABSENT: rales, rhonchi, wheezes Cardiovascular exam: PRESENT: RRR, +S1, +S2. ABSENT: diastolic murmur, rubs, systolic murmur Pulses: PRESENT: normal dorsalis pedis pul Vascular exam: PRESENT: normal capillary refill GI/Abdominal exam: PRESENT: normal bowel sounds, soft. ABSENT: distended, guarding, mass, organolmegaly, rebound, tenderness Rectal exam: PRESENT: deferred Extremities exam: PRESENT: full ROM - moves all extremities spontaneously, other - ataxia bilateral hands/fingers. ABSENT: calf tenderness, clubbing, pedal edema Neurological exam: PRESENT: alert, awake, oriented to person, oriented to place, oriented to time, oriented to situation, CN II-XII grossly intact, other - right facial droop; increased slurred speech. No focal weakness/deficits noted; globally weak. ABSENT: motor sensory deficit Psychiatric exam: PRESENT: agitated, appropriate affect. ABSENT: homicidal ideation, suicidal ideation Skin exam: PRESENT: dry, intact, warm. ABSENT: cyanosis, rash Results Laboratory Results: 03/17/19 05:21 03/17/19 05:21 03/17/19 03/17/19 05:21 05:21 WBC 6.5 RBC 3.61 L Hgb 13.5 Hct 37.7 L MCV 105 H MCH 37.3 H MCHC 35.7 RDW 12.8 Plt Count 107 L Sodium 138.6 Potassium 3.4 L Chloride 105 Carbon Dioxide 20 L Anion Gap 14 BUN 7 Creatinine 0.46 L Est GFR ( Amer) > 60 Glucose 114 H Calcium 9.3 03/15/19 03/15/19 02:28 02:28 Creatine Kinase 31 L Troponin I < 0.012 Impressions: Head CT 03/15/19 06:51 IMPRESSION: No acute intracranial abnormality TECHNICAL DOCUMENTATION: Quality ID # [id number]: Final reports with documentation of one or more dose reduction techniques (e.g., Automated exposure control, adjustment of the mA and/or kV according to patient size, use of iterative reconstruction technique) copyright 2010 [employer]- All Rights Reserved Assessment and Plan - Diagnosis (1) UTI (urinary tract infection) Qualifiers: Urinary tract infection type: acute cystitis Hematuria presence: without hematuria Qualified Code(s): N30.00 - Acute cystitis without hematuria Is this a current diagnosis for this admission?: Yes Plan: Urinalysis reveals UTI. Urine culture positive for gram-positive cocci in chains Blood cultures (2 of 4 bottles) show gram-positive cocci chains Patient is admitted to the medical floor on continuous cardiac telemetry. He is empirically placed on IV Rocephin; Day #3 We will provide gentle IV fluids. (2) Altered mental status Qualifiers: Altered mental status type: disorientation Qualified Code(s): R41.0 - Disorientation, unspecified Is this a current diagnosis for this admission?: Yes Plan: Secondary to urinary tract infection and bacteremia Head CT was negative for acute CVA, though does demonstrate mild diffuse cerebral atrophy with mild chronic microvascular changes and an old lacunar infarct in involving left basal ganglia. Slight right facial droop and increased slurred speech today. MRI Head pending. Supportive care. Fall precautions. Discharge planning is consulted. (3) Failure to thrive Qualifiers: Failure to thrive age range: in adult Qualified Code(s): R62.7 - Adult failure to thrive Is this a current diagnosis for this admission?: Yes Plan: Unclear etiology. May be related to vascular dementia and old lacunar infarcts as noted on CT imaging. The patient had a CT of the chest, cervical spine, abdomen/pelvis, soft tissue of the neck, and head CT all done this week with benign results. He does have a history of esophageal cancer with gastric pull-through. PT/OT/ST therapy services are consulted. Registered dietitian is consulted. Discharge planning is consulted. Consider low-dose Remeron for depression/anxiety/appetite stimulation. (4) Generalized weakness Is this a current diagnosis for this admission?: Yes Plan: As above. Fall precautions. 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 Analgesics as needed. (6) HTN (hypertension) Qualifiers: Hypertension type: essential hypertension Qualified Code(s): I10 - Essential (primary) hypertension Is this a current diagnosis for this admission?: Yes Plan: The patient endorses a history of hypertension, he is not noted to be on home antihypertensive therapy. Blood pressures are elevated today; though slightly improved as compared to yesterday. Increased dose lisinopril. IV hydralazine as needed for blood pressure control. (7) Thrush Is this a current diagnosis for this admission?: Yes Plan: Continue Nystatin swish/swallows. (8) Bacteremia Is this a current diagnosis for this admission?: Yes Plan: Blood cultures (2/4 bottles) show gram positive cocci in chains. Urine culture with same. Patient did have recent dental work w/ development of thrush and gum/gingival pain. No obvious abscess on exam. ?Possible source of bacteremia w/ seeding into urine Continue Rocephin Repeat blood cultures tomorrow. May need to consider TTE/CAROLE to eval for vegetation - Time Time Spent with patient: 25-34 minutes Medications reviewed and adjusted accordingly: Yes Anticipated discharge: SNF
[2019-03-17] MEDS ORDERED: ASPIRIN 81 MG TABLET, ENT COATED PO ONE ×2 (14:26→18:35)
--- NOTE | 2019-03-17 17:56 | RADIOLOGY REPORT (SQ) ---
EXAM DESCRIPTION: CT HEAD WITHOUT COMPLETED DATE/TIME: 03/17/2019 5:30 pm REASON FOR STUDY: slurred speech, rt facial droop COMPARISON: 03/15/2019 TECHNIQUE: Axial images acquired through the brain without intravenous contrast. Images reviewed wit h bone, brain and subdural windows. Images stored on PACS. All CT scanners at this facility use dose modulation, iterative reconstruction, and/or weight based d osing when appropriate to reduce radiation dose to as low as reasonably achievable (ALARA). [facility]: Dose Right [facility]: CareDose [facility]: Dose Right [facility]: Teradose 4D [facility]: Smart eInstruction by [employer] RADIATION DOSE: CT Rad equipment meets quality standard of care and radiation dose reduction techniq ues were employed. CTDIvol: 53.2 mGy. DLP: 1017 mGy-cm.. LIMITATIONS: None. FINDINGS: VENTRICLES: Normal size and contour. CEREBRUM: No masses. No hemorrhage. No midline shift. Age appropriate white matter. No evidence for a cute infarction. CEREBELLUM: No masses. No hemorrhage. No alteration of density. No evidence for acute infarction. EXTRA-AXIAL SPACES: No fluid collections. ORBITS AND GLOBE: No intra- or extraconal masses. Normal contour of globe without masses. CALVARIUM: No fracture. PARANASAL SINUSES: No fluid or mucosal thickening. SOFT TISSUES: No mass or hematoma. OTHER: No other significant finding. IMPRESSION: NO ACUTE INTRACRANIAL FINDINGS. EVIDENCE OF ACUTE STROKE: NO. TECHNICAL DOCUMENTATION: JOB ID: [id number] Quality ID # [id number]: Final reports with documentation of one or more dose reduction techniques (e.g., Au tomated exposure control, adjustment of the mA and/or kV according to patient size, use of iterative reconstruction technique) 2010 [employer]- All Rights Reserved Reading location - IP/workstation name: [email or web address]
[2019-03-17] MEDS: FAMOTIDINE 20 MG TABLET PO SCH (21:30)
[2019-03-17] MEDS: ATORVASTATIN CALCIUM 80 MG TABLET PO SCH (21:30)
[2019-03-17] MEDS ORDERED: PIPERACILLIN/TAZOBACTAM 3.375 GM VIAL IV PRN (22:14)
[2019-03-18] MEDS ORDERED: PIPERACILLIN/TAZOBACTAM 3.375 GM VIAL IV ONE (00:25)
[2019-03-18] MEDS: PIPERACILLIN SODIUM/TAZOBACTAM 3.375 GM in NORMAL SALINE 100 ML IV SCH ×2 (00:51→06:13)
[2019-03-18] MEDS: NORMAL SALINE 1000 ML 1,000 ML IV PRN ×2 (03:33→14:07)
[2019-03-18] MEDS: HEPARIN SOD (PORCINE) 5,000 UNIT/ML 1 ML VIAL SUBCUT SCH ×3 (06:12→21:56)
[2019-03-18 07:59] LABS: ANION GAP 14 (5-19); BLOOD UREA NITROGEN 7 mg/dL (7-20); CALCIUM 8.8 mg/dL (8.4-10.2); CARBON DIOXIDE 17 mmol/L (22-30); CHLORIDE 106 mmol/L (98-107); GLUCOSE 97 mg/dL (75-110); POTASSIUM 3.3 mmol/L (3.6-5.0)
[2019-03-18 08:58] LABS: HEMATOCRIT 27.5 % (37.9-51.0); MEAN CORPUSCULAR HEMOGLOBIN 37.5 pg (27.0-33.4); MEAN CORPUSCULAR HGB CONC 36.1 g/dL (32.0-36.0); MEAN CORPUSCULAR VOLUME 104 fl (80-97); PLATELET COUNT 128 10^3/uL (150-450); RED BLOOD COUNT 2.65 10^6/uL (4.35-5.55); RED CELL DISTRIBUTION WIDTH 12.7 % (11.5-14.0); WHITE BLOOD COUNT 6.3 10^3/uL (4.0-10.5)
[2019-03-18] MEDS: FAMOTIDINE 20 MG TABLET PO SCH ×3 (10:00→21:56)
[2019-03-18] MEDS: LISINOPRIL 10 MG TABLET PO SCH ×2 (10:00→10:10)
[2019-03-18] MEDS: DULOXETINE HCL 30 MG CAPSULE.DR PO SCH ×2 (10:01→10:02)
[2019-03-18] MEDS: DOCUSATE SODIUM 100 MG/10 ML UDC PO SCH ×2 (10:01→10:02)
[2019-03-18] MEDS: POTASSIUM CHLORIDE 10 MEQ CAPSULE.ER PO SCH ×2 (10:01→10:10)
[2019-03-18] MEDS: CYANOCOBALAMIN/FA/PYRIDOXINE TABLET PO SCH ×2 (10:01→10:10)
[2019-03-18] MEDS: NYSTATIN/DEXAMETH/DIPHEN SUSP 120 ML PO SCH ×4 (10:10→22:02)
[2019-03-18] MEDS ORDERED: VANCOMYCIN HCL 0 MG in DEXTROSE 5%-WATER 250 ML IV NR (10:45)
[2019-03-18 12:25] LABS: ALKALINE PHOSPHATASE 57 U/L (38-126); ASPARTATE AMINO TRANSFERASE 36 U/L (17-59); BILIRUBIN,TOTAL 2.5 mg/dL (0.2-1.3); TOTAL PROTEIN 5.4 g/dL (6.3-8.2)
[2019-03-18] MEDS: VANCOMYCIN HCL 1,000 MG in DEXTROSE 5%-WATER 250 ML IV SCH ×2 (14:07→22:01)
--- NOTE | 2019-03-18 14:57 | PDOC PROGRESS REPORT ---
Subjective Progress Note for:: 03/18/19 Subjective:: SIMONA SHIRLEY is a 63 year old male with a past medical history of hypertension, hyperlipidemia, esophageal cancer post surgical and chemotherapy intervention with resultant polyneuropathy and opiate dependent chronic pain who was admitted 03/15/2019 for altered mental status and urinary tract infection. Patient was seen on morning rounds. He is found resting in bed comfortably on room air. He is alert and oriented x4 to self. He does continue to have increased slurred speech as compared to the day of admission, however, there is clearly no facial asymmetry or focal deficits today. He has ataxic movements of all extremities, but does demonstrate complete range of motion to all extremities while I am in the room. He is not following directions today. H owever, he is noted to be having delusions/hallucinations; asks me to help find the person who has left their keys in his room and then proceeds to hand me nonexistent keys. He does deny pain. ROS is significantly limited due to mental status. No concerns per nursing. Reason For Visit: UTI,DEHYDRATION,WEAKNESS Physical Exam Vital Signs: Temp Pulse Resp BP Pulse Ox 97.9 F 112 H 16 136/96 H 98 03/18/19 11:33 03/18/19 12:47 03/18/19 12:47 03/18/19 11:33 03/18/19 12:47 Intake & Output 03/17/19 03/18/19 03/19/19 06:59 06:59 06:59 Intake Total 2850 2270 1200 Output Total 1300 200 Balance 1550 2070 1200 Weight 66 kg 66.8 kg General appearance: PRESENT: no acute distress, disheveled, thin, well-developed Head exam: PRESENT: atraumatic, normocephalic Eye exam: PRESENT: conjunctiva pink, EOMI, PERRLA, other - Ecchymosis to right eye; abrasion to right eyebrow. Improved.. ABSENT: scleral icterus Ear exam: PRESENT: normal external ear exam Mouth exam: PRESENT: moist, tongue midline, other - Erythema to the hard palate and gums; no evidence of thrush today Teeth exam: PRESENT: poor dentation Neck exam: ABSENT: carotid bruit, JVD, lymphadenopathy, thyromegaly Respiratory exam: PRESENT: clear to auscultation kevin, symmetrical, unlabored. ABSENT: rales, rhonchi, wheezes Cardiovascular exam: PRESENT: RRR, +S1, +S2. ABSENT: diastolic murmur, rubs, systolic murmur Pulses: PRESENT: normal dorsalis pedis pul Vascular exam: PRESENT: normal capillary refill GI/Abdominal exam: PRESENT: normal bowel sounds, soft. ABSENT: distended, guarding, mass, organolmegaly, rebound, tenderness Rectal exam: PRESENT: deferred Extremities exam: PRESENT: full ROM, other - Ataxic movement of bilateral upper extremities; restless.. ABSENT: calf tenderness, clubbing, pedal edema Neurological exam: PRESENT: alert, awake, oriented to person, CN II-XII grossly intact, other - Conversational socially appropriate though disoriented with hallucinations.. ABSENT: oriented to place, oriented to time, oriented to situation, motor sensory deficit Skin exam: PRESENT: dry, intact, warm. ABSENT: cyanosis, rash Results Laboratory Results: 03/18/19 08:34 03/18/19 06:33 03/18/19 03/18/19 03/18/19 06:33 06:33 08:34 WBC Cancelled 6.3 RBC Cancelled 2.65 L Hgb Cancelled 10.0 L D Hct Cancelled 27.5 L MCV Cancelled 104 H MCH Cancelled 37.5 H MCHC Cancelled 36.1 H RDW Cancelled 12.7 Plt Count Cancelled 128 L Sodium 137.0 Potassium 3.3 L Chloride 106 Carbon Dioxide 17 L Anion Gap 14 BUN 7 Creatinine 0.48 L Est GFR ( Amer) > 60 Glucose 97 Calcium 8.8 Total Bilirubin AST Alkaline Phosphatase Ammonia Total Protein Albumin 03/18/19 03/18/19 11:55 11:55 WBC RBC Hgb Hct MCV MCH MCHC RDW Plt Count Sodium Potassium Chloride Carbon Dioxide Anion Gap BUN Creatinine Est GFR ( Amer) Glucose Calcium Total Bilirubin 2.5 H AST 36 Alkaline Phosphatase 57 Ammonia < 8.7 L Total Protein 5.4 L Albumin 3.0 L 03/15/19 07:06 Blood Blood Culture - Final Enterococcus Faecalis(Group D) 03/15/19 06:49 Clean Catch Midstream Urine Culture - Final Enterococcus Faecalis(Group D) 03/15/19 03/15/19 03/17/19 02:28 02:28 19:10 Creatine Kinase 31 L Troponin I < 0.012 < 0.012 03/18/19 03/18/19 01:25 06:33 Creatine Kinase Troponin I < 0.012 < 0.012 Impressions: Head CT 03/17/19 00:00 IMPRESSION: NO ACUTE INTRACRANIAL FINDINGS. EVIDENCE OF ACUTE STROKE: NO. Assessment and Plan - Diagnosis (1) UTI (urinary tract infection) Qualifiers: Urinary tract infection type: acute cystitis Hematuria presence: without hematuria Qualified Code(s): N30.00 - Acute cystitis without hematuria Is this a current diagnosis for this admission?: Yes Plan: Urinalysis reveals UTI. Urine culture positive for enterococcus faecalis Blood cultures (2 of 4 bottles) Enterococcus faecalis Repeat blood cultures pending; of note, these were obtained prior to change to vancomycin. Patient is admitted to the medical floor on continuous cardiac telemetry. The patient was empirically placed on IV Rocephin; unfortunately sensitivities are resistant. AG of 2 with penicillins, therefore Zosyn is not appropriate. He is started on IV vancomycin; first dose today 03/18/2019. We will provide gentle IV fluids. (2) Encephalopathy acute Is this a current diagnosis for this admission?: Yes Plan: Likely secondary to urinary tract infection and bacteremia. The patient has had multiple head CTs this week without evidence of acute stroke. MRI pending. Echocardiogram and carotid Doppler pending. HIV negative. RPR pending. Bilirubin slightly elevated, remaining LFTs and ammonia are normal. Troponins are negative x3, EKG is reassuring. Cultures and antibiotic's as above. Continue IV vancomycin for treatment of Enterococcus faecalis UTI and bacteremia. Unknown alcohol use history; will start IV banana bags. Supportive care. Aspiration and fall precautions. PT/OT/ST therapy. Discharge planning is consulted. (3) Failure to thrive Qualifiers: Failure to thrive age range: in adult Qualified Code(s): R62.7 - Adult failure to thrive Is this a current diagnosis for this admission?: Yes Plan: BMI 21.1. Unclear etiology. May be related to vascular dementia and old lacunar infarcts as noted on CT imaging. The patient had a CT of the chest, cervical spine, abdomen/pelvis, soft tissue of the neck, and head CT all done this week with benign results. He does have a history of esophageal cancer with gastric pull-through. PT/OT/ST therapy services are consulted. Registered dietitian is consulted. Discharge planning is consulted. Consider low-dose Remeron for depression/anxiety/appetite stimulation. (4) Generalized weakness Is this a current diagnosis for this admission?: Yes Plan: As above. Fall precautions. 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 The patient sister reports that his gabapentin was recently discontinued due to worsening weakness and thoughts that the gabapentin may be contributing. Analgesics as needed. (6) HTN (hypertension) Qualifiers: Hypertension type: essential hypertension Qualified Code(s): I10 - Essential (primary) hypertension Is this a current diagnosis for this admission?: Yes Plan: Improved blood pressures today The patient endorses a history of hypertension, he is not noted to be on home antihypertensive therapy. Continue lisinopril IV hydralazine as needed for blood pressure control. (7) Thrush Is this a current diagnosis for this admission?: Yes Plan: Magic mouthwash every 6 hours. Pured diet for comfort. (8) Bacteremia Is this a current diagnosis for this admission?: Yes Plan: Blood cultures (2/4 bottles) show Enterococcus faecalis. Unfortunately, not sensitive to Rocephin and AG of 2 for penicillins. Therefore, patient has not been receiving appropriate antibiotic therapy. Repeat blood cultures were obtained prior to transition to vancomycin. Urine culture with same. Patient did have recent dental work w/ development of thrush and gum/gingival pain. No obvious abscess on exam. ?Possible source of bacteremia w/ seeding into urine Discontinue Rocephin. Start vancomycin. Repeat blood cultures in 24 to 48 hours. May need to consider TTE/CAROLE to eval for vegetation (9) Altered mental status Qualifiers: Altered mental status type: disorientation Qualified Code(s): R41.0 - Disorientation, unspecified Is this a current diagnosis for this admission?: Yes Plan: As above. - Time Time Spent with patient: 25-34 minutes Medications reviewed and adjusted accordingly: Yes Anticipated discharge: SNF
[2019-03-18] MEDS ORDERED: ZIPRASIDONE MESYLATE INJ/PF 20 MG SDV IM ONE (15:00)
[2019-03-18] MEDS: NORMAL SALINE 1000 ML 1,000 ML with POTASSIUM CHLORIDE 20 MEQ, MAGNESIUM SULFATE 8 MEQ,... IV SCH ×5 (18:16)
[2019-03-18] MEDS: ATORVASTATIN CALCIUM 80 MG TABLET PO SCH (21:56)
[2019-03-18] MEDS: QUETIAPINE FUMARATE 25 MG TABLET PO SCH (21:56)
[2019-03-19] MEDS: DIAZEPAM 2 MG TABLET PO PRN (00:58)
[2019-03-19 05:22] LABS: HEMATOCRIT 25.5 % (37.9-51.0); HEMOGLOBIN 9.4 g/dL (13.5-17.0); MEAN CORPUSCULAR HEMOGLOBIN 38.1 pg (27.0-33.4); MEAN CORPUSCULAR HGB CONC 36.7 g/dL (32.0-36.0); MEAN CORPUSCULAR VOLUME 104 fl (80-97); RED BLOOD COUNT 2.46 10^6/uL (4.35-5.55); RED CELL DISTRIBUTION WIDTH 13.1 % (11.5-14.0); WHITE BLOOD COUNT 3.9 10^3/uL (4.0-10.5)
[2019-03-19] MEDS: VANCOMYCIN HCL 1,000 MG in DEXTROSE 5%-WATER 250 ML IV SCH ×3 (05:24→21:25)
[2019-03-19] MEDS: HEPARIN SOD (PORCINE) 5,000 UNIT/ML 1 ML VIAL SUBCUT SCH ×3 (05:24→21:24)
[2019-03-19 05:42] LABS: ANION GAP 8 (5-19); BLOOD UREA NITROGEN 6 mg/dL (7-20); CALCIUM 8.9 mg/dL (8.4-10.2); CARBON DIOXIDE 23 mmol/L (22-30); CHLORIDE 109 mmol/L (98-107); GLUCOSE 100 mg/dL (75-110); POTASSIUM 3.4 mmol/L (3.6-5.0)
[2019-03-19 05:54] LABS: PLATELET COUNT 99 10^3/uL (150-450)
[2019-03-19] MEDS: DULOXETINE HCL 30 MG CAPSULE.DR PO SCH (09:18)
[2019-03-19] MEDS: LISINOPRIL 10 MG TABLET PO SCH (09:18)
[2019-03-19] MEDS: DOCUSATE SODIUM 100 MG CAPSULE PO SCH (09:29)
[2019-03-19] MEDS: FAMOTIDINE 20 MG TABLET PO SCH ×2 (09:29→21:24)
[2019-03-19] MEDS: CYANOCOBALAMIN/FA/PYRIDOXINE TABLET PO SCH (09:30)
[2019-03-19] MEDS: POTASSIUM CHLORIDE 20 MEQ PACKET PO SCH (09:41)
--- NOTE | 2019-03-19 09:48 | Progress Note Acknowledgement ---
Progress Note Acknowledgement Progess Note Acknowledgement: I, the undersigned member of the medical staff with appropriate privileges and with supervisory authority over [Jeanmarie Victor], a dependent practice allied health professional, acknowledge that I have reviewed the progress notes entered on this patient, and in my professional judgment believe that the assessment made and/or any care evidenced was appropriate
[2019-03-19] MEDS: NYSTATIN/DEXAMETH/DIPHEN SUSP 120 ML PO SCH ×4 (09:52→21:25)
--- NOTE | 2019-03-19 09:56 | PDOC PROGRESS REPORT ---
Subjective Progress Note for:: 03/19/19 Reason For Visit: UTI,DEHYDRATION,WEAKNESS Physical Exam Vital Signs: Temp Pulse Resp BP Pulse Ox 97.8 F 93 18 131/84 H 100 03/19/19 08:44 03/19/19 08:44 03/19/19 08:44 03/19/19 08:44 03/19/19 08:44 Intake & Output 03/18/19 03/19/19 03/20/19 06:59 06:59 06:59 Intake Total 2270 3413 Output Total 200 Balance 2070 3413 Weight 66.8 kg 67.8 kg General appearance: PRESENT: no acute distress, well-developed, well-nourished Neck exam: ABSENT: carotid bruit, JVD, lymphadenopathy, thyromegaly Respiratory exam: PRESENT: clear to auscultation kevin. ABSENT: rales, rhonchi, wheezes Cardiovascular exam: PRESENT: RRR. ABSENT: diastolic murmur, rubs, systolic murmur Pulses: PRESENT: +1 pedal pulses bilateral Vascular exam: PRESENT: normal capillary refill GI/Abdominal exam: PRESENT: normal bowel sounds, soft. ABSENT: distended, guarding, mass, organolmegaly, rebound, tenderness Extremities exam: PRESENT: full ROM. ABSENT: calf tenderness, clubbing, pedal edema Neurological exam: PRESENT: alert, awake, other - Pleasantly confused Psychiatric exam: PRESENT: appropriate affect, other - Pleasantly confused. ABSENT: homicidal ideation, suicidal ideation Skin exam: PRESENT: dry, intact, warm. ABSENT: cyanosis, rash Results Laboratory Results: 03/19/19 04:48 03/19/19 04:48 03/18/19 03/18/19 03/19/19 11:55 11:55 04:48 WBC 3.9 L RBC 2.46 L Hgb 9.4 L Hct 25.5 L MCV 104 H MCH 38.1 H MCHC 36.7 H RDW 13.1 Plt Count 99 L Sodium Potassium Chloride Carbon Dioxide Anion Gap BUN Creatinine Est GFR ( Amer) Glucose Calcium Total Bilirubin 2.5 H AST 36 Alkaline Phosphatase 57 Ammonia < 8.7 L Total Protein 5.4 L Albumin 3.0 L 03/19/19 04:48 WBC RBC Hgb Hct MCV MCH MCHC RDW Plt Count Sodium 139.8 Potassium 3.4 L Chloride 109 H Carbon Dioxide 23 Anion Gap 8 BUN 6 L Creatinine 0.47 L Est GFR ( Amer) > 60 Glucose 100 Calcium 8.9 Total Bilirubin AST Alkaline Phosphatase Ammonia Total Protein Albumin 03/15/19 03/15/19 03/17/19 02:28 02:28 19:10 Creatine Kinase 31 L Troponin I < 0.012 < 0.012 03/18/19 03/18/19 01:25 06:33 Creatine Kinase Troponin I < 0.012 < 0.012 Impressions: Head CT 03/17/19 00:00 IMPRESSION: NO ACUTE INTRACRANIAL FINDINGS. EVIDENCE OF ACUTE STROKE: NO. Assessment and Plan - Diagnosis (1) UTI (urinary tract infection) Qualifiers: Urinary tract infection type: acute cystitis Hematuria presence: without hematuria Qualified Code(s): N30.00 - Acute cystitis without hematuria Is this a current diagnosis for this admission?: Yes Plan: Urinalysis reveals UTI. Urine culture positive for enterococcus faecalis Blood cultures (2 of 4 bottles) Enterococcus faecalis Repeat blood cultures pending; of note, these were obtained prior to change to vancomycin. Patient is admitted to the medical floor on continuous cardiac telemetry. The patient was empirically placed on IV Rocephin; unfortunately sensitivities are resistant. AG of 2 with penicillins, therefore Zosyn is not appropriate. He is started on IV vancomycin; first dose today 03/18/2019. We will provide gentle IV fluids. 03/19/2019-urinalysis and culture shows enterococcus facialis susceptible to vancomycin. At this time patient remains on vancomycin IV (2) Encephalopathy acute Is this a current diagnosis for this admission?: Yes Plan: Likely secondary to urinary tract infection and bacteremia. The patient has had multiple head CTs this week without evidence of acute stroke. MRI pending. Echocardiogram and carotid Doppler pending. HIV negative. RPR pending. Bilirubin slightly elevated, remaining LFTs and ammonia are normal. Troponins are negative x3, EKG is reassuring. Cultures and antibiotic's as above. Continue IV vancomycin for treatment of Enterococcus faecalis UTI and bacteremia. Unknown alcohol use history; will start IV banana bags. Supportive care. Aspiration and fall precautions. PT/OT/ST therapy. Discharge planning is consulted. 03/19/2019-patient pleasantly confused at this time. Working with physical therapy to get out of bed. IV vancomycin continues for enterococcus facialis UTI and bacteremia. Family states patient has a long history of EtOH abuse. Patient is given antibiotic at this time. We will continue to follow (3) Failure to thrive Qualifiers: Failure to thrive age range: in adult Qualified Code(s): R62.7 - Adult failure to thrive Is this a current diagnosis for this admission?: Yes Plan: BMI 21.1. Unclear etiology. May be related to vascular dementia and old lacunar infarcts as noted on CT imaging. The patient had a CT of the chest, cervical spine, abdomen/pelvis, soft tissue of the neck, and head CT all done this week with benign results. He does have a history of esophageal cancer with gastric pull-through. PT/OT/ST therapy services are consulted. Registered dietitian is consulted. Discharge planning is consulted. Consider low-dose Remeron for depression/anxiety/appetite stimulation. 03/19/2019-patient did work with PT OT and speech. Dietary has been consulted will await their planning. Patient pleasantly confused at this time most likely secondary to EtOH abuse. Will follow (4) Generalized weakness Is this a current diagnosis for this admission?: Yes Plan: As above. Fall precautions. 03/19/2019-continue physical therapy occupational therapy and speech. 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 The patient sister reports that his gabapentin was recently discontinued due to worsening weakness and thoughts that the gabapentin may be contributing. Analgesics as needed. 03/19/2019-could be related to prior chemotherapy although sister reports that his pain physician thinks is from his alcohol abuse continue current therapy. He needed to follow (6) HTN (hypertension) Qualifiers: Hypertension type: essential hypertension Qualified Code(s): I10 - Essential (primary) hypertension Is this a current diagnosis for this admission?: Yes Plan: Improved blood pressures today The patient endorses a history of hypertension, he is not noted to be on home antihypertensive therapy. Continue lisinopril IV hydralazine as needed for blood pressure control. 03/19/2019-stable at this time continue to follow (7) Thrush Is this a current diagnosis for this admission?: Yes Plan: Magic mouthwash every 6 hours. Pured diet for comfort. 03/19/2019-continue Magic mouthwash (8) Altered mental status Qualifiers: Altered mental status type: disorientation Qualified Code(s): R41.0 - Disorientation, unspecified Is this a current diagnosis for this admission?: Yes Plan: As above. 03/09/2019-as above - Time Time Spent with patient: 15-24 minutes - Inpatient Certification Based on my medical assessment, after consideration of the patient's comorbidities, presenting symptoms, or acuity I expect that the services needed warrant INPATIENT care.: Yes I certify that my determination is in accordance with my understanding of Medicare's requirements for reasonable and necessary INPATIENT services [42 CFR 412.3e].: Yes Medical Necessity: Other - Physical, occupational therapy, placement
[2019-03-19] MEDS ORDERED: POTASSIUM CHLORIDE 20 MEQ PACKET PO ONE (10:30)
--- NOTE | 2019-03-19 13:40 | RADIOLOGY REPORT (SQ) ---
EXAM DESCRIPTION: CAROTID DOPPLER COMPLETED DATE/TIME: 03/19/2019 1:07 pm REASON FOR STUDY: TIA/CVA COMPARISON: None. TECHNIQUE: Grayscale ultrasound, Doppler velocity and spectra, and color Doppler images acquired of the extra-cranial carotid and vertebral arteries. Images stored on PACS. LIMITATIONS: None. FINDINGS: RIGHT CAROTID CCA Velocities: Within normal limits. ICA Velocities Peak systolic 0.79 m/s. End diastolic 0.22 m/s. Proximal ICA/CCA peak systolic ratio 1.14. There is calcified plaque in the carotid bulb. LEFT CAROTID CCA Velocities: Within normal limits. ICA Velocities Peak systolic 0.81 m/s. End diastolic 0.25 m/s. Proximal ICA/CCA peak systolic ratio 1.0. There is calcified plaque in the carotid bulb. VERTEBRAL ARTERIES: Antegrade flow. The right vertebral artery is small in caliber most likely conge nital. SUBCLAVIAN ARTERIES: No finding. OTHER: No other significant finding. IMPRESSION: Calcified plaque in the carotid bulbs bilaterally. No hemodynamically significant steno sis. COMMENT: Quality ID #[id number]: Velocity criteria are extrapolated from the diameter data as defined by t he Society of Radiologists in Ultrasound Consensus Conference. Radiology 2003: 229; 340-346. TECHNICAL DOCUMENTATION: JOB ID: [id number] [employer]- All Rights Reserved Reading location - IP/workstation name: [email or web address]
[2019-03-19] MEDS: NORMAL SALINE 1000 ML 1,000 ML IV PRN (13:57)
[2019-03-19 14:46] LABS: VANCOMYCIN,TROUGH 17.8 ug/mL (5.0-20.0)
[2019-03-19] MEDS: NORMAL SALINE 1000 ML 1,000 ML with POTASSIUM CHLORIDE 20 MEQ, MAGNESIUM SULFATE 8 MEQ,... IV SCH ×5 (17:37)
[2019-03-19] MEDS: OXYCODONE HCL IR 5 MG TABLET PO PRN (21:23)
[2019-03-19] MEDS: ATORVASTATIN CALCIUM 80 MG TABLET PO SCH (21:23)
[2019-03-19] MEDS: QUETIAPINE FUMARATE 25 MG TABLET PO SCH (21:24)
[2019-03-20 05:03] LABS: HEMATOCRIT 25.2 % (37.9-51.0); HEMOGLOBIN 9.1 g/dL (13.5-17.0); MEAN CORPUSCULAR HEMOGLOBIN 37.5 pg (27.0-33.4); MEAN CORPUSCULAR VOLUME 104 fl (80-97); RED BLOOD COUNT 2.41 10^6/uL (4.35-5.55); RED CELL DISTRIBUTION WIDTH 12.8 % (11.5-14.0); WHITE BLOOD COUNT 4.1 10^3/uL (4.0-10.5)
[2019-03-20 05:22] LABS: ANION GAP 7 (5-19); BLOOD UREA NITROGEN 3 mg/dL (7-20); CALCIUM 8.8 mg/dL (8.4-10.2); CARBON DIOXIDE 22 mmol/L (22-30); CHLORIDE 110 mmol/L (98-107); GLUCOSE 102 mg/dL (75-110); POTASSIUM 3.4 mmol/L (3.6-5.0)
[2019-03-20 05:24] LABS: PLATELET COUNT 93 10^3/uL (150-450)
[2019-03-20] MEDS: HEPARIN SOD (PORCINE) 5,000 UNIT/ML 1 ML VIAL SUBCUT SCH ×3 (05:36→22:06)
[2019-03-20] MEDS: VANCOMYCIN HCL 1,000 MG in DEXTROSE 5%-WATER 250 ML IV SCH ×3 (05:36→22:05)
[2019-03-20] MEDS: DIAZEPAM 2 MG TABLET PO PRN (09:14)
[2019-03-20] MEDS: POTASSIUM CHLORIDE 20 MEQ PACKET PO SCH (09:14)
[2019-03-20] MEDS: DOCUSATE SODIUM 100 MG CAPSULE PO SCH (09:15)
[2019-03-20] MEDS: DULOXETINE HCL 30 MG CAPSULE.DR PO SCH (09:21)
[2019-03-20] MEDS: NYSTATIN/DEXAMETH/DIPHEN SUSP 120 ML PO SCH ×4 (09:22→22:06)
[2019-03-20] MEDS: FAMOTIDINE 20 MG TABLET PO SCH ×2 (09:24→22:05)
[2019-03-20] MEDS: CYANOCOBALAMIN/FA/PYRIDOXINE TABLET PO SCH (09:24)
[2019-03-20] MEDS ORDERED: POTASSIUM CHLORIDE 10 MEQ CAPSULE.ER PO ONE (09:24)
[2019-03-20] MEDS: LISINOPRIL 10 MG TABLET PO SCH (09:24)
--- NOTE | 2019-03-20 09:30 | PDOC PROGRESS REPORT ---
Subjective Progress Note for:: 03/20/19 Subjective:: 03/20/2019-no complaints this a.m. Reason For Visit: UTI,DEHYDRATION,WEAKNESS Physical Exam Vital Signs: Temp Pulse Resp BP Pulse Ox 97.5 F 103 H 20 140/80 H 100 03/20/19 07:52 03/20/19 08:15 03/20/19 07:52 03/20/19 07:57 03/20/19 07:52 Intake & Output 03/19/19 03/20/19 03/21/19 06:59 06:59 06:59 Intake Total 3413 1000 1273 Output Total 200 Balance 3413 800 1273 Weight 67.8 kg 68.6 kg General appearance: PRESENT: no acute distress, well-developed, well-nourished Neck exam: ABSENT: carotid bruit, JVD, lymphadenopathy, thyromegaly Respiratory exam: PRESENT: clear to auscultation kevin. ABSENT: rales, rhonchi, wheezes Cardiovascular exam: PRESENT: RRR. ABSENT: diastolic murmur, rubs, systolic murmur Vascular exam: PRESENT: normal capillary refill GI/Abdominal exam: PRESENT: normal bowel sounds, soft. ABSENT: distended, guarding, mass, organolmegaly, rebound, tenderness Extremities exam: PRESENT: full ROM. ABSENT: calf tenderness, clubbing, pedal edema Neurological exam: PRESENT: alert, awake, oriented to person, oriented to place, oriented to time, oriented to situation, CN II-XII grossly intact. ABSENT: motor sensory deficit Psychiatric exam: PRESENT: appropriate affect, normal mood. ABSENT: homicidal ideation, suicidal ideation Skin exam: PRESENT: dry, intact, warm. ABSENT: cyanosis, rash Results Laboratory Results: 03/20/19 04:48 03/20/19 04:48 03/19/19 03/20/19 03/20/19 13:45 04:48 04:48 WBC 4.1 RBC 2.41 L Hgb 9.1 L Hct 25.2 L MCV 104 H MCH 37.5 H MCHC 36.0 RDW 12.8 Plt Count 93 L Sodium 139.0 Potassium 3.4 L Chloride 110 H Carbon Dioxide 22 Anion Gap 7 BUN 3 L Creatinine 0.46 L 0.44 L Est GFR ( Amer) > 60 > 60 Glucose 102 Calcium 8.8 03/15/19 02:28 Blood Blood Culture - Final NO GROWTH IN 5 DAYS 03/15/19 03/15/19 03/17/19 02:28 02:28 19:10 Creatine Kinase 31 L Troponin I < 0.012 < 0.012 03/18/19 03/18/19 01:25 06:33 Creatine Kinase Troponin I < 0.012 < 0.012 Impressions: Head CT 03/17/19 00:00 IMPRESSION: NO ACUTE INTRACRANIAL FINDINGS. EVIDENCE OF ACUTE STROKE: NO. Carotid Doppler Study 03/19/19 00:00 IMPRESSION: Calcified plaque in the carotid bulbs bilaterally. No hemodynamically significant stenosis. Assessment and Plan - Diagnosis (1) UTI (urinary tract infection) Qualifiers: Urinary tract infection type: acute cystitis Hematuria presence: without hematuria Qualified Code(s): N30.00 - Acute cystitis without hematuria Is this a current diagnosis for this admission?: Yes Plan: Urinalysis reveals UTI. Urine culture positive for enterococcus faecalis Blood cultures (2 of 4 bottles) Enterococcus faecalis Repeat blood cultures pending; of note, these were obtained prior to change to vancomycin. Patient is admitted to the medical floor on continuous cardiac telemetry. The patient was empirically placed on IV Rocephin; unfortunately sensitivities are resistant. AG of 2 with penicillins, therefore Zosyn is not appropriate. He is started on IV vancomycin; first dose today 03/18/2019. We will provide gentle IV fluids. 03/19/2019-urinalysis and culture shows enterococcus facialis susceptible to vancomycin. At this time patient remains on vancomycin IV 03/20/2019-continue vancomycin (2) Encephalopathy acute Is this a current diagnosis for this admission?: Yes Plan: Likely secondary to urinary tract infection and bacteremia. The patient has had multiple head CTs this week without evidence of acute stroke. MRI pending. Echocardiogram and carotid Doppler pending. HIV negative. RPR pending. Bilirubin slightly elevated, remaining LFTs and ammonia are normal. Troponins are negative x3, EKG is reassuring. Cultures and antibiotic's as above. Continue IV vancomycin for treatment of Enterococcus faecalis UTI and bacteremia. Unknown alcohol use history; will start IV banana bags. Supportive care. Aspiration and fall precautions. PT/OT/ST therapy. Discharge planning is consulted. 03/19/2019-patient pleasantly confused at this time. Working with physical therapy to get out of bed. IV vancomycin continues for enterococcus facialis UTI and bacteremia. Family states patient has a long history of EtOH abuse. Patient is given antibiotic at this time. We will continue to follow 03/20/2019-patient continues to be pleasantly confused. Most likely at his baseline. (3) Failure to thrive Qualifiers: Failure to thrive age range: in adult Qualified Code(s): R62.7 - Adult failure to thrive Is this a current diagnosis for this admission?: Yes Plan: BMI 21.1. Unclear etiology. May be related to vascular dementia and old lacunar infarcts as noted on CT imaging. The patient had a CT of the chest, cervical spine, abdomen/pelvis, soft tissue of the neck, and head CT all done this week with benign results. He does have a history of esophageal cancer with gastric pull-through. PT/OT/ST therapy services are consulted. Registered dietitian is consulted. Discharge planning is consulted. Consider low-dose Remeron for depression/anxiety/appetite stimulation. 03/19/2019-patient did work with PT OT and speech. Dietary has been consulted will await their planning. Patient pleasantly confused at this time most likely secondary to EtOH abuse. Will follow 03/20/2019-continue to follow dietary recommendations offer foods high in calorie. (4) Generalized weakness Is this a current diagnosis for this admission?: Yes Plan: As above. Fall precautions. 03/19/2019-continue physical therapy occupational therapy and speech. 03/20/2019-continue to work with physical and occupational therapy. Await transfer to rehab. 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 The patient sister reports that his gabapentin was recently discontinued due to worsening weakness and thoughts that the gabapentin may be contributing. Analgesics as needed. 03/19/2019-could be related to prior chemotherapy although sister reports that his pain physician thinks is from his alcohol abuse continue current therapy. He needed to follow 03/20/2019-continue current pain management regimen (6) HTN (hypertension) Qualifiers: Hypertension type: essential hypertension Qualified Code(s): I10 - Essential (primary) hypertension Is this a current diagnosis for this admission?: Yes Plan: Improved blood pressures today The patient endorses a history of hypertension, he is not noted to be on home antihypertensive therapy. Continue lisinopril IV hydralazine as needed for blood pressure control. 03/19/2019-stable at this time continue to follow 03/20/2019-starting to trend up this time. I added Norvasc 10 mg p.o. daily will follow (7) Thrush Is this a current diagnosis for this admission?: Yes Plan: Magic mouthwash every 6 hours. Pured diet for comfort. 03/19/2019-continue Magic mouthwash 03/20/2019-Magic mouthwash (8) Altered mental status Qualifiers: Altered mental status type: disorientation Qualified Code(s): R41.0 - Disorientation, unspecified Is this a current diagnosis for this admission?: Yes Plan: As above. 03/19/2019-as above 03/20/2019 continues pleasantly confused. Most likely at baseline - Time Time Spent with patient: 15-24 minutes - Inpatient Certification Based on my medical assessment, after consideration of the patient's comorbidities, presenting symptoms, or acuity I expect that the services needed warrant INPATIENT care.: Yes I certify that my determination is in accordance with my understanding of Medicare's requirements for reasonable and necessary INPATIENT services [42 CFR 412.3e].: Yes Medical Necessity: Other - Physical and occupational therapy
[2019-03-20] MEDS ORDERED: POTASSIUM CHLORIDE 20 MEQ PACKET PO ONE (09:45)
[2019-03-20] MEDS: AMLODIPINE BESYLATE 10 MG TABLET PO SCH (09:58)
[2019-03-20] MEDS: NORMAL SALINE 1000 ML 1,000 ML IV PRN (11:11)
--- NOTE | 2019-03-20 14:55 | Progress Note ---
Provider Note Provider Note: ID Consult/Antimicrobial Stewardship Brief Note Asked by Pharmacy to review chart. Pt not seen or examined. Mr. Chatman was found to have bacteremia with Enterococcus faecalis in one of the sets obtained on admission, presumably secondary to a urinary source with the same organism grown in his urine culture. Empirically a dose of Rocephin was given, then Zosyn was ordered from 03/16-03/17, then vancomycin from 03/18 to present. No murmur was noted. Repeat blood cultures on 03/18 are negative. Recommendations Although MICs provide useful information on antimicrobial activity, they are not directly comparable, and MICs alone might not predict what antibiotic is the best to use for a particular infection. Generally, an antibiotic that is safe, achieves adequate concentrations at the site of infection, and to which the organism is one that should be selected; when possible, preference should be given to beta-lactams due to long experience and better outcomes. Considering that the E faecalis was reported as susceptible to IV ampicillin, this agent would be the best choice for treatment in absence of an allergy that precludes its use. IV penicillin is also reasonable but frequency of dosing might make this less desirable an option; could ask Pharmacy to enter it in as a continuous infusion. Consider switching from IV vancomycin to IV ampicillin. Darrick Finley MD [facility] Infectious Diseases pager [phone]
[2019-03-20] MEDS: NORMAL SALINE 1000 ML 1,000 ML with POTASSIUM CHLORIDE 20 MEQ, MAGNESIUM SULFATE 8 MEQ,... IV SCH ×5 (17:38)
[2019-03-20] MEDS: ATORVASTATIN CALCIUM 80 MG TABLET PO SCH (22:05)
[2019-03-20] MEDS: QUETIAPINE FUMARATE 25 MG TABLET PO SCH (22:05)
[2019-03-21] MEDS: VANCOMYCIN HCL 1,000 MG in DEXTROSE 5%-WATER 250 ML IV SCH (05:23)
[2019-03-21] MEDS: HEPARIN SOD (PORCINE) 5,000 UNIT/ML 1 ML VIAL SUBCUT SCH ×3 (05:23→21:04)
[2019-03-21] MEDS: NORMAL SALINE 1000 ML 1,000 ML IV PRN ×2 (08:48→17:21)
[2019-03-21] MEDS ORDERED: AMPICILLIN SOD INJ 2 GM VIAL IV SCH (09:15)
--- NOTE | 2019-03-21 09:18 | PDOC PROGRESS REPORT ---
Subjective Progress Note for:: 03/21/19 Subjective:: 03/20/2019-no complaints this a.m. 03/21/2019-no complaints this a.m. although patient is very confused Reason For Visit: UTI,DEHYDRATION,WEAKNESS Physical Exam Vital Signs: Temp Pulse Resp BP Pulse Ox 97.5 F 103 H 18 141/69 H 100 03/21/19 06:46 03/21/19 06:46 03/21/19 06:46 03/21/19 06:46 03/21/19 06:46 Intake & Output 03/20/19 03/21/19 03/22/19 06:59 06:59 06:59 Intake Total 2000 2834 250 Output Total 200 Balance 1800 2834 250 Weight 68.6 kg 66.8 kg General appearance: PRESENT: no acute distress, well-developed, well-nourished Neck exam: ABSENT: carotid bruit, JVD, lymphadenopathy, thyromegaly Respiratory exam: PRESENT: clear to auscultation kevin. ABSENT: rales, rhonchi, wheezes Cardiovascular exam: PRESENT: RRR. ABSENT: diastolic murmur, rubs, systolic murmur Pulses: PRESENT: normal dorsalis pedis pul GI/Abdominal exam: PRESENT: normal bowel sounds, soft. ABSENT: distended, guarding, mass, organolmegaly, rebound, tenderness Extremities exam: PRESENT: full ROM. ABSENT: clubbing, pedal edema Neurological exam: PRESENT: awake, other - Very confused this a.m. Psychiatric exam: PRESENT: other - Very confused this a.m. Skin exam: PRESENT: dry, intact, warm. ABSENT: cyanosis, rash Results Laboratory Results: 03/20/19 04:48 03/20/19 04:48 03/15/19 02:28 Blood Blood Culture - Final NO GROWTH IN 5 DAYS 03/15/19 03/15/19 03/17/19 02:28 02:28 19:10 Creatine Kinase 31 L Troponin I < 0.012 < 0.012 03/18/19 03/18/19 01:25 06:33 Creatine Kinase Troponin I < 0.012 < 0.012 Impressions: Head CT 03/17/19 00:00 IMPRESSION: NO ACUTE INTRACRANIAL FINDINGS. EVIDENCE OF ACUTE STROKE: NO. Carotid Doppler Study 03/19/19 00:00 IMPRESSION: Calcified plaque in the carotid bulbs bilaterally. No hemodynami destiney significant stenosis. Assessment and Plan - Diagnosis (1) UTI (urinary tract infection) Qualifiers: Urinary tract infection type: acute cystitis Hematuria presence: without hematuria Qualified Code(s): N30.00 - Acute cystitis without hematuria Is this a current diagnosis for this admission?: Yes Plan: Urinalysis reveals UTI. Urine culture positive for enterococcus faecalis Blood cultures (2 of 4 bottles) Enterococcus faecalis Repeat blood cultures pending; of note, these were obtained prior to change to vancomycin. Patient is admitted to the medical floor on continuous cardiac telemetry. The patient was empirically placed on IV Rocephin; unfortunately sensitivities are resistant. AG of 2 with penicillins, therefore Zosyn is not appropriate. He is started on IV vancomycin; first dose today 03/18/2019. We will provide gentle IV fluids. 03/19/2019-urinalysis and culture shows enterococcus facialis susceptible to vancomycin. At this time patient remains on vancomycin IV 03/20/2019-continue vancomycin 03/21/2019-urinalysis shows enterococcus facialis. ID recommendations switch fr om vancomycin to ampicillin. Ampicillin 2 g IV every 4 hours at this time. (2) Encephalopathy acute Is this a current diagnosis for this admission?: Yes Plan: Likely secondary to urinary tract infection and bacteremia. The patient has had multiple head CTs this week without evidence of acute stroke. MRI pending. Echocardiogram and carotid Doppler pending. HIV negative. RPR pending. Bilirubin slightly elevated, remaining LFTs and ammonia are normal. Troponins are negative x3, EKG is reassuring. Cultures and antibiotic's as above. Continue IV vancomycin for treatment of Enterococcus faecalis UTI and bacteremia. Unknown alcohol use history; will start IV banana bags. Supportive care. Aspiration and fall precautions. PT/OT/ST therapy. Discharge planning is consulted. 03/19/2019-patient pleasantly confused at this time. Working with physical therapy to get out of bed. IV vancomycin continues for enterococcus facialis UTI and bacteremia. Family states patient has a long history of EtOH abuse. Patient is given antibiotic at this time. We will continue to follow 03/20/2019-patient continues to be pleasantly confused. Most likely at his baseline. 03/21/2019-much more confused this a.m. Unsure of etiology. Patient does have a long history of EtOH abuse but should be over withdrawal timeframe. Continue to follow. I am awaiting echocardiogram may have to obtain CAROLE to rule out endocarditis. Although at this time I hear no rubs or murmurs. (3) Failure to thrive Qualifiers: Failure to thrive age range: in adult Qualified Code(s): R62.7 - Adult failure to thrive Is this a current diagnosis for this admission?: Yes Plan: BMI 21.1. Unclear etiology. May be related to vascular dementia and old lacunar infarcts as noted on CT imaging. The patient had a CT of the chest, cervical spine, abdomen/pelvis, soft tissue of the neck, and head CT all done this week with benign results. He does have a history of esophageal cancer with gastric pull-through. PT/OT/ST therapy services are consulted. Registered dietitian is consulted. Discharge planning is consulted. Consider low-dose Remeron for depression/anxiety/appetite stimulation. 03/19/2019-patient did work with PT OT and speech. Dietary has been consulted will await their planning. Patient pleasantly confused at this time most likely secondary to EtOH abuse. Will follow 03/20/2019-continue to follow dietary recommendations offer foods high in calorie. 03/21/2019-continue to follow dietary recommendations (4) Generalized weakness Is this a current diagnosis for this admission?: Yes Plan: As above. Fall precautions. 03/19/2019-continue physical therapy occupational therapy and speech. 03/20/2019-continue to work with physical and occupational therapy. Await transfer to rehab. 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 The patient sister reports that his gabapentin was recently discontinued due to worsening weakness and thoughts that the gabapentin may be contributing. Analgesics as needed. 03/19/2019-could be related to prior chemotherapy although sister reports that his pain physician thinks is from his alcohol abuse continue current therapy. He needed to follow 03/20/2019-continue current pain management regimen 03/21/2019-continue analgesics as needed (6) HTN (hypertension) Qualifiers: Hypertension type: essential hypertension Qualified Code(s): I10 - Essential (primary) hypertension Is this a current diagnosis for this admission?: Yes Plan: Improved blood pressures today The patient endorses a history of hypertension, he is not noted to be on home antihypertensive therapy. Continue lisinopril IV hydralazine as needed for blood pressure control. 03/19/2019-stable at this time continue to follow 03/20/2019-starting to trend up this time. I added Norvasc 10 mg p.o. daily will follow 03/21/2019-improved with addition of Norvasc. Continue to follow (7) Altered mental status Qualifiers: Altered mental status type: disorientation Qualified Code(s): R41.0 - Disorientation, unspecified Is this a current diagnosis for this admission?: Yes Plan: As above. 03/19/2019-as above 03/20/2019 continues pleasantly confused. Most likely at baseline 03/21/2019-remains confused. Exacerbated today. Unknown etiology. Will give patient Ativan 2 mg IV every 4 hours as needed continue to await echocardiogram results. - Time Time Spent with patient: 15-24 minutes - Inpatient Certification Based on my medical assessment, after consideration of the patient's comorbidities, presenting symptoms, or acuity I expect that the services needed warrant INPATIENT care.: Yes I certify that my determination is in accordance with my understanding of Medicare's requirements for reasonable and necessary INPATIENT services [42 CFR 412.3e].: Yes Medical Necessity: Other - IV antibiotics
[2019-03-21] MEDS ORDERED: LORAZEPAM INJ 2 MG/1 ML VIAL ONE (09:37)
[2019-03-21] MEDS: DOCUSATE SODIUM 100 MG CAPSULE PO SCH (10:11)
[2019-03-21] MEDS: POTASSIUM CHLORIDE 20 MEQ PACKET PO SCH (10:11)
[2019-03-21] MEDS: AMLODIPINE BESYLATE 10 MG TABLET PO SCH (10:11)
[2019-03-21] MEDS: DULOXETINE HCL 30 MG CAPSULE.DR PO SCH (10:11)
[2019-03-21] MEDS: FAMOTIDINE 20 MG TABLET PO SCH ×2 (10:11→23:04)
[2019-03-21] MEDS: LISINOPRIL 10 MG TABLET PO SCH (10:11)
[2019-03-21] MEDS: CYANOCOBALAMIN/FA/PYRIDOXINE TABLET PO SCH (10:13)
[2019-03-21] MEDS ORDERED: LORAZEPAM INJ 2 MG/1 ML VIAL IV PRN (12:16)
[2019-03-21] MEDS: NYSTATIN/DEXAMETH/DIPHEN SUSP 120 ML PO SCH ×4 (12:59→23:04)
[2019-03-21] MEDS: AMPICILLIN SODIUM 2 GM in NORMAL SALINE 100 ML IV SCH ×3 (14:29→23:03)
[2019-03-21 15:01] LABS: HEMATOCRIT 25.2 % (37.9-51.0); HEMOGLOBIN 9.2 g/dL (13.5-17.0); MEAN CORPUSCULAR HEMOGLOBIN 37.5 pg (27.0-33.4); MEAN CORPUSCULAR HGB CONC 36.6 g/dL (32.0-36.0); MEAN CORPUSCULAR VOLUME 102 fl (80-97); PLATELET COUNT 122 10^3/uL (150-450); RED BLOOD COUNT 2.46 10^6/uL (4.35-5.55); WHITE BLOOD COUNT 6.3 10^3/uL (4.0-10.5)
[2019-03-21] MEDS ORDERED: DANTROLENE SODIUM INJ 20 MG VIAL IV SCH (16:00)
[2019-03-21] MEDS: CONTAINER EMPTY IV SCH (17:20)
[2019-03-21] MEDS: DANTROLENE SODIUM IV SCH (17:20)
--- NOTE | 2019-03-21 21:23 | XCELERA REPORT ---
[address] [address] Transthoracic Echocardiogram Report Name: SIMONA SHIRLEY Age: 63 yrs Gender: Male : 1955 Patient Status: Inpatient Patient Location: [address] [place], [place] [address] Study Date: 03/19/2019 09:51 AM Height: 72 in Weight: 145 lb BSA: 1.9 m2 Procedure: A two-dimensional transthoracic echocardiogram with color flow and Doppler was performed. Study Quality: Poor. Reason For Study: TIA/CVA, bacteremia History: TIA/CVA, bacteremia. Ordering Physician: CHET SINGH Performed By: Cynthia Keating Interpretation Summary There is no obvious cardiac source of embolus noted on this transthoracic echocardiogram. Follow-up with a CAROLE is suggested if cardiac source is still suspected. The left ventricle is normal in size. There is normal left ventricular wall thickness. LV EF is 65% The left ventricular ejection fraction is within normal limits. Doppler measurements suggest impaired left ventricular relaxation, which is associated with grade I/IV or mild diastolic dysfunction The left ventricular wall motion is normal. Cannot assess for thrombus , or ASD ,VSD , or PFO. The right ventricle is not well visualized secondary to technical limitations Right atrium not well visualized secondary to technical limitations The left atrial size is normal. There is no mitral valve stenosis. There is no evidence of mitral valve prolapse. There is a trace amount of mitral regurgitation There is no aortic valve stenosis No aortic regurgitation is present. There is no tricuspid stenosis. There is a trace amount of tricuspid regurgitation Unable to calculate RVSP due to insufficient TR jet. There is no pulmonic valvular stenosis. There is a mild amount of pulmonic regurgitation The aortic root is not well visualized. The inferior vena cava appeared small and collapsed with respiration (RAP 0-5 mmHg) There is no pericardial effusion. There is no obvious cardiac source of embolus noted on this transthoracic echocardiogram. Follow-up with a CAROLE is suggested if cardiac source is still suspected MMode/2D Measurements & Calculations RVDd: 3.2 cm LVIDd: 4.7 cm FS: 37.5 % Ao root diam: 3.2 cm IVSd: 1.1 cm LVIDs: 2.9 cm EDV(Teich): 102.2 ml Ao root area: 8.2 cm2 LVPWd: 1.1 cm ESV(Teich): 33.2 ml LA dimension: 3.6 cm EF(Teich): 67.6 % Doppler Measurements & Calculations MV E max andrew: MV P1/2t max andrew: Ao V2 max: LV V1 max P.6 cm/sec 71.6 cm/sec 105.5 cm/sec 2.5 mmHg MV A max andrew: MV P1/2t: 55.0 msec Ao max P.5 mmHg LV V1 max: 84.9 cm/sec MVA(P1/2t): 4.0 cm2 79.5 cm/sec MV E/A: 0.82 MV dec slope: 380.9 cm/sec2 MV dec time: 0.16 sec PA V2 max: PI end-d andrew: MV P1/2t-pr_phl: 67.6 cm/sec 137.3 cm/sec 55.0 msec PA max P.8 mmHg Left Ventricle The left ventricle is normal in size. There is normal left ventricular wall thickness. LV EF is 65%. The left ventricular ejection fraction is within normal limits. Doppler measurements suggest impaired left ventricular relaxation, which is associated with grade I/IV or mild diastolic dysfunction. The left ventricular wall motion is normal. Cannot assess for thrombus , or ASD ,VSD , or PFO. Right Ventricle The right ventricle is not well visualized secondary to technical limitations. Atria Right atrium not well visualized secondary to technical limitations. The left atrial size is normal. Mitral Valve There is no evidence of mitral valve prolapse. There is no vegetation seen on the mitral valve. There is no mitral valve stenosis. There is a trace amount of mitral regurgitation. Aortic Valve There is no aortic valve stenosis. There is no LVOT obstruction. No aortic regurgitation is present. Tricuspid Valve There is no tricuspid stenosis. There is a trace amount of tricuspid regurgitation. Unable to calculate RVSP due to insufficient TR jet. Pulmonic Valve There is no pulmonic valvular stenosis. There is a mild amount of pulmonic regurgitation. Great Vessels The aortic root is not well visualized. The inferior vena cava appeared small and collapsed with respiration (RAP 0-5 mmHg). Effusions There is no pericardial effusion. : CHET SINGH Lakshmi
[2019-03-21] MEDS: ATORVASTATIN CALCIUM 80 MG TABLET PO SCH (23:04)
[2019-03-22] MEDS: NORMAL SALINE 1000 ML 1,000 ML IV PRN ×2 (02:34→14:46)
[2019-03-22] MEDS: AMPICILLIN SODIUM 2 GM in NORMAL SALINE 100 ML IV SCH ×6 (02:34→21:54)
[2019-03-22] MEDS: HEPARIN SOD (PORCINE) 5,000 UNIT/ML 1 ML VIAL SUBCUT SCH ×3 (06:01→21:54)
[2019-03-22] MEDS ORDERED: DANTROLENE SODIUM INJ 20 MG VIAL IV SCH (08:15)
--- NOTE | 2019-03-22 08:18 | PDOC PROGRESS REPORT ---
Subjective Progress Note for:: 03/22/19 Subjective:: 03/20/2019-no complaints this a.m. 03/21/2019-no complaints this a.m. although patient is very confused 03/22/2019-no complaints at this time. Patient less confused this morning. Reason For Visit: UTI,DEHYDRATION,WEAKNESS Physical Exam Vital Signs: Temp Pulse Resp BP Pulse Ox 97.6 F 87 18 127/76 H 100 03/21/19 23:16 03/22/19 02:00 03/21/19 23:16 03/21/19 23:16 03/21/19 23:16 Intake & Output 03/21/19 03/22/19 03/23/19 06:59 06:59 06:59 Intake Total 2834 2825 Output Total 4000 Balance 2834 -1175 Weight 66.8 kg 69 kg General appearance: PRESENT: no acute distress, well-developed, well-nourished Neck exam: ABSENT: carotid bruit, JVD, lymphadenopathy, thyromegaly Respiratory exam: PRESENT: clear to auscultation kevin. ABSENT: rales, rhonchi, wheezes Cardiovascular exam: PRESENT: RRR. ABSENT: diastolic murmur, rubs, systolic murmur Pulses: PRESENT: normal dorsalis pedis pul GI/Abdominal exam: PRESENT: normal bowel sounds, soft. ABSENT: distended, guarding, mass, organolmegaly, rebound, tenderness Extremities exam: PRESENT: full ROM. ABSENT: clubbing, pedal edema Neurological exam: PRESENT: altered, awake Psychiatric exam: PRESENT: other - Unable to assess Skin exam: PRESENT: dry, intact, warm. ABSENT: cyanosis, rash Results Laboratory Results: 03/21/19 14:50 03/20/19 04:48 03/21/19 14:50 WBC 6.3 RBC 2.46 L Hgb 9.2 L Hct 25.2 L MCV 102 H MCH 37.5 H MCHC 36.6 H RDW 13.0 Plt Count 122 L 03/15/19 03/15/19 03/17/19 02:28 02:28 19:10 Creatine Kinase 31 L Troponin I < 0.012 < 0.012 03/18/19 03/18/19 03/21/19 01:25 06:33 14:50 Creatine Kinase 85 Troponin I < 0.012 < 0.012 Impressions: Head CT 03/17/19 00:00 IMPRESSION: NO ACUTE INTRACRANIAL FINDINGS. EVIDENCE OF ACUTE STROKE: NO. Carotid Doppler Study 03/19/19 00:00 IMPRESSION: Calcified plaque in the carotid bulbs bilaterally. No hemodynamically significant stenosis. Assessment and Plan - Diagnosis (1) UTI (urinary tract infection) Qualifiers: Urinary tract infection type: acute cystitis Hematuria presence: without hematuria Qualified Code(s): N30.00 - Acute cystitis without hematuria Is this a current diagnosis for this admission?: Yes Plan: Urinalysis reveals UTI. Urine culture positive for enterococcus faecalis Blood cultures (2 of 4 bottles) Enterococcus faecalis Repeat blood cultures pending; of note, these were obtained prior to change to vancomycin. Patient is admitted to the medical floor on continuous cardiac telemetry. The patient was empirically placed on IV Rocephin; unfortunately sensitivities are resistant. AG of 2 with penicillins, therefore Zosyn is not appropriate. He is started on IV vancomycin; first dose today 03/18/2019. We will provide gentle IV fluids. 03/19/2019-urinalysis and culture shows enterococcus facialis susceptible to vancomycin. At this time patient remains on vancomycin IV 03/20/2019-continue vancomycin 03/21/2019-urinalysis shows enterococcus facialis. ID recommendations switch from vancomycin to ampicillin. Ampicillin 2 g IV every 4 hours at this time. 03/22/2019-ampicillin continues at this time will follow (2) Encephalopathy acute Is this a current diagnosis for this admission?: Yes Plan: Likely secondary to urinary tract infection and bacteremia. The patient has had multiple head CTs this week without evidence of acute stroke. MRI pending. Echocardiogram and carotid Doppler pending. HIV negative. RPR pending. Bilirubin slightly elevated, remaining LFTs and ammonia are normal. Troponins are negative x3, EKG is reassuring. Cultures and antibiotic's as above. Continue IV vancomycin for treatment of Enterococcus faecalis UTI and bacteremia. Unknown alcohol use history; will start IV banana bags. Supportive care. Aspiration and fall precautions. PT/OT/ST therapy. Discharge planning is consulted. 03/19/2019-patient pleasantly confused at this time. Working with physical therapy to get out of bed. IV vancomycin continues for enterococcus facialis UTI and bacteremia. Family states patient has a long history of EtOH abuse. Patient is given antibiotic at this time. We will continue to follow 03/20/2019-patient continues to be pleasantly confused. Most likely at his baseline. 03/21/2019-much more confused this a.m. Unsure of etiology. Patient does have a long history of EtOH abuse but should be over withdrawal timeframe. Continue to follow. I am awaiting echocardiogram may have to obtain CAROLE to rule out endocarditis. Although at this time I hear no rubs or murmurs. 03/22/2019-improved this a.m. After discussing patient's care with sister yesterday I had a feeling patient may be suffering from neuroleptic malignant syndrome secondary to antipsychotics, and Phenergan and possibly serotonin syndrome. I have stopped all patient's mind altering drugs at this time of given dantrolene 165 mg yesterday and will continue that daily. I will also give patient a one-time dose this morning of dantrolene 65 mg IV. I feel patient's showing improvement at this time I will continue to follow (3) HTN (hypertension) Qualifiers: Hypertension type: essential hypertension Qualified Code(s): I10 - Essential (primary) hypertension Is this a current diagnosis for this admission?: Yes Plan: Improved blood pressures today The patient endorses a history of hypertension, he is not noted to be on home antihypertensive therapy. Continue lisinopril IV hydralazine as needed for blood pressure control. 03/19/2019-stable at this time continue to follow 03/20/2019-starting to trend up this time. I added Norvasc 10 mg p.o. daily will follow 03/21/2019-improved with addition of Norvasc. Continue to follow 03/22/2019-stable continue to follow (4) Altered mental status Qualifiers: Altered mental status type: disorientation Qualified Code(s): R41.0 - Disorientation, unspecified Is this a current diagnosis for this admission?: Yes Plan: As above. 03/19/2019-as above 03/20/2019 continues pleasantly confused. Most likely at baseline 03/21/2019-remains confused. Exacerbated today. Unknown etiology. Will give patient Ativan 2 mg IV every 4 hours as needed continue to await echocardiogram results. 03/22/2019-remains confused although he is able to respond today. After looking patient yesterday I thought he might be having either neuroleptic malignant syndrome or a serotonin storm. I have DC'd all medications including Cymbalta, Phenergan, and Seroquel. I have patient on dantrolene at this time we will continue to follow - Time Time Spent with patient: 15-24 minutes - Inpatient Certification Based on my medical assessment, after consideration of the patient's comorbidities, presenting symptoms, or acuity I expect that the services needed warrant INPATIENT care.: Yes I certify that my determination is in accordance with my understanding of Medicare's requirements for reasonable and necessary INPATIENT services [42 CFR 412.3e].: Yes Medical Necessity: Other - IV antibiotics,
[2019-03-22] MEDS ORDERED: CONTAINER EMPTY IV ONE ×4 (09:00→10:30)
[2019-03-22] MEDS ORDERED: DANTROLENE SODIUM IV ONE ×4 (09:00→10:30)
[2019-03-22] MEDS: LISINOPRIL 10 MG TABLET PO SCH (10:49)
[2019-03-22] MEDS: DOCUSATE SODIUM 100 MG CAPSULE PO SCH (10:51)
[2019-03-22] MEDS: FAMOTIDINE 20 MG TABLET PO SCH ×2 (10:51→21:53)
[2019-03-22] MEDS: AMLODIPINE BESYLATE 10 MG TABLET PO SCH (10:51)
[2019-03-22] MEDS: POTASSIUM CHLORIDE 20 MEQ PACKET PO SCH (10:52)
[2019-03-22] MEDS: CYANOCOBALAMIN/FA/PYRIDOXINE TABLET PO SCH (10:52)
[2019-03-22] MEDS: NYSTATIN/DEXAMETH/DIPHEN SUSP 120 ML PO SCH ×4 (10:53→22:17)
[2019-03-22] MEDS: DANTROLENE SODIUM IV SCH (18:11)
[2019-03-22] MEDS: CONTAINER EMPTY IV SCH (18:11)
[2019-03-22] MEDS: ATORVASTATIN CALCIUM 80 MG TABLET PO SCH (21:53)
[2019-03-23] MEDS: AMPICILLIN SODIUM 2 GM in NORMAL SALINE 100 ML IV SCH ×6 (01:06→21:10)
[2019-03-23] MEDS: HEPARIN SOD (PORCINE) 5,000 UNIT/ML 1 ML VIAL SUBCUT SCH ×3 (05:09→21:09)
[2019-03-23 05:10] LABS: HEMATOCRIT 28.6 % (37.9-51.0); HEMOGLOBIN 10.4 g/dL (13.5-17.0); MEAN CORPUSCULAR HEMOGLOBIN 37.8 pg (27.0-33.4); MEAN CORPUSCULAR HGB CONC 36.4 g/dL (32.0-36.0); MEAN CORPUSCULAR VOLUME 104 fl (80-97); PLATELET COUNT 145 10^3/uL (150-450); RED BLOOD COUNT 2.75 10^6/uL (4.35-5.55); RED CELL DISTRIBUTION WIDTH 13.2 % (11.5-14.0); WHITE BLOOD COUNT 7.3 10^3/uL (4.0-10.5)
[2019-03-23 05:31] LABS: ANION GAP 10 (5-19); BLOOD UREA NITROGEN 5 mg/dL (7-20); CARBON DIOXIDE 25 mmol/L (22-30); CHLORIDE 103 mmol/L (98-107); GLUCOSE 109 mg/dL (75-110); POTASSIUM 3.4 mmol/L (3.6-5.0)
[2019-03-23] MEDS ORDERED: POTASSIUM CHLORIDE 10 MEQ CAPSULE.ER PO ONE (07:59)
--- NOTE | 2019-03-23 08:03 | PDOC PROGRESS REPORT ---
Subjective Progress Note for:: 03/23/19 Subjective:: 03/20/2019-no complaints this a.m. 03/21/2019-no complaints this a.m. although patient is very confused 03/22/2019-no complaints at this time. Patient less confused this morning. 03/23/2019-no complaints this a.m. Reason For Visit: UTI,DEHYDRATION,WEAKNESS Physical Exam Vital Signs: Temp Pulse Resp BP Pulse Ox 98.2 F 102 H 21 H 141/64 H 98 03/23/19 03:37 03/23/19 03:37 03/23/19 03:37 03/23/19 03:37 03/23/19 03:37 Intake & Output 03/22/19 03/23/19 03/24/19 06:59 06:59 06:59 Intake Total 2825 1800 Output Total 4000 2600 Balance -1175 -800 Weight 69 kg 69.5 kg General appearance: PRESENT: no acute distress, well-developed, well-nourished Neck exam: ABSENT: carotid bruit, JVD, lymphadenopathy, thyromegaly Respiratory exam: PRESENT: clear to auscultation kevin. ABSENT: rales, rhonchi, wheezes Cardiovascular exam: PRESENT: RRR. ABSENT: diastolic murmur, rubs, systolic murmur Pulses: PRESENT: normal dorsalis pedis pul Vascular exam: PRESENT: normal capillary refill GI/Abdominal exam: PRESENT: normal bowel sounds, soft. ABSENT: distended, guarding, mass, organolmegaly, rebound, tenderness Extremities exam: PRESENT: full ROM. ABSENT: calf tenderness, clubbing, pedal edema Neurological exam: PRESENT: alert, awake, oriented to person Psychiatric exam: PRESENT: appropriate affect, normal mood. ABSENT: homicidal ideation, suicidal ideation Skin exam: PRESENT: dry, intact, warm. ABSENT: cyanosis, rash Results Laboratory Results: 03/23/19 04:09 03/23/19 04:09 03/23/19 03/23/19 04:09 04:09 WBC 7.3 RBC 2.75 L Hgb 10.4 L Hct 28.6 L MCV 104 H MCH 37.8 H MCHC 36.4 H RDW 13.2 Plt Count 145 L Sodium 137.7 Potassium 3.4 L Chloride 103 Carbon Dioxide 25 Anion Gap 10 BUN 5 L Creatinine 0.57 Est GFR ( Amer) > 60 Glucose 109 Calcium 9.0 03/15/19 03/15/19 03/17/19 02:28 02:28 19:10 Creatine Kinase 31 L Troponin I < 0.012 < 0.012 03/18/19 03/18/19 03/21/19 01:25 06:33 14:50 Creatine Kinase 85 Troponin I < 0.012 < 0.012 Impressions: Head CT 03/17/19 00:00 IMPRESSION: NO ACUTE INTRACRANIAL FINDINGS. EVIDENCE OF ACUTE STROKE: NO. Carotid Doppler Study 03/19/19 00:00 IMPRESSION: Calcified plaque in the carotid bulbs bilaterally. No hemodynamically significant stenosis. Assessment and Plan - Diagnosis (1) UTI (urinary tract infection) Qualifiers: Urinary tract infection type: acute cystitis Hematuria presence: without hematuria Qualified Code(s): N30.00 - Acute cystitis without hematuria Is this a current diagnosis for this admission?: Yes Plan: Urinalysis reveals UTI. Urine culture positive for enterococcus faecalis Blood cultures (2 of 4 bottles) Enterococcus faecalis Repeat blood cultures pending; of note, these were obtained prior to change to vancomycin. Patient is admitted to the medical floor on continuous cardiac telemetry. The patient was empirically placed on IV Rocephin; unfortunately sensitivities are resistant. AG of 2 with penicillins, therefore Zosyn is not appropriate. He is started on IV vancomycin; first dose today 03/18/2019. We will provide gentle IV fluids. 03/19/2019-urinalysis and culture shows enterococcus facialis susceptible to vancomycin. At this time patient remains on vancomycin IV 03/20/2019-continue vancomycin 03/21/2019-urinalysis shows enterococcus facialis. ID recommendations switch from vancomycin to ampicillin. Ampicillin 2 g IV every 4 hours at this time. 03/22/2019-ampicillin continues at this time will follow 03/23/2019-ampicillin continues (2) Encephalopathy acute Is this a current diagnosis for this admission?: Yes Plan: Likely secondary to urinary tract infection and bacteremia. The patient has had multiple head CTs this week without evidence of acute stroke. MRI pending. Echocardiogram and carotid Doppler pending. HIV negative. RPR pending. Bilirubin slightly elevated, remaining LFTs and ammonia are normal. Troponins are negative x3, EKG is reassuring. Cultures and antibiotic's as above. Continue IV vancomycin for treatment of Enterococcus faecalis UTI and bacteremia. Unknown alcohol use history; will start IV banana bags. Supportive care. Aspiration and fall precautions. PT/OT/ST therapy. Discharge planning is consulted. 03/19/2019-patient pleasantly confused at this time. Working with physical therapy to get out of bed. IV vancomycin continues for enterococcus facialis UTI and bacteremia. Family states patient has a long history of EtOH abuse. Patient is given antibiotic at this time. We will continue to follow 03/20/2019-patient continues to be pleasantly confused. Most likely at his baseline. 03/21/2019-much more confused this a.m. Unsure of etiology. Patient does have a long history of EtOH abuse but should be over withdrawal timeframe. Continue to follow. I am awaiting echocardiogram may have to obtain CAROLE to rule out endocarditis. Although at this time I hear no rubs or murmurs. 03/22/2019-improved this a.m. After discussing patient's care with sister yesterday I had a feeling patient may be suffering from neuroleptic malignant syndrome secondary to antipsychotics, and Phenergan and possibly serotonin syndrome. I have stopped all patient's mind altering drugs at this time of given dantrolene 165 mg yesterday and will continue that daily. I will also give patient a one-time dose this morning of dantrolene 65 mg IV. I feel patient's showing improvement at this time I will continue to follow 03/23/2019-continues improvement. We will continue dantrolene daily at this time. (3) HTN (hypertension) Qualifiers: Hypertension type: essential hypertension Qualified Code(s): I10 - Essential (primary) hypertension Is this a current diagnosis for this admission?: Yes Plan: Improved blood pressures today The patient endorses a history of hypertension, he is not noted to be on home antihypertensive therapy. Continue lisinopril IV hydralazine as needed for blood pressure control. 03/19/2019-stable at this time continue to follow 03/20/2019-starting to trend up this time. I added Norvasc 10 mg p.o. daily will follow 03/21/2019-improved with addition of Norvasc. Continue to follow 03/22/2019-stable continue to follow 03/23/2019-stable (4) Altered mental status Qualifiers: Altered mental status type: disorientation Qualified Code(s): R41.0 - Disorientation, unspecified Is this a current diagnosis for this admission?: Yes Plan: As above. 03/19/2019-as above 03/20/2019 continues pleasantly confused. Most likely at baseline 03/21/2019-remains confused. Exacerbated today. Unknown etiology. Will give patient Ativan 2 mg IV every 4 hours as needed continue to await echocardiogram results. 03/22/2019-remains confused although he is able to respond today. After looking patient yesterday I thought he might be having either neuroleptic malignant syndrome or a serotonin storm. I have DC'd all medications including Cymbalta, Phenergan, and Seroquel. I have patient on dantrolene at this time we will continue to follow 03/23/2019-continues to show improvement. Continue dantrolene (5) Neuroleptic malignant syndrome Is this a current diagnosis for this admission?: Yes Plan: 03/23/2019-patient was on Seroquel as well as Phenergan and a SSRI. Patient ex hibited signs and symptoms of neuroleptic malignant syndrome. I have DC'd all these medications place patient on dantrolene for which she shown vast improvement daily. Dantrolene will continue 165 mg IV x10 days. - Time Time Spent with patient: 15-24 minutes - Inpatient Certification Based on my medical assessment, after consideration of the patient's comorbidities, presenting symptoms, or acuity I expect that the services needed warrant INPATIENT care.: Yes I certify that my determination is in accordance with my understanding of Medicare's requirements for reasonable and necessary INPATIENT services [42 CFR 412.3e].: Yes Medical Necessity: Other - IV antibiotics, IV dantrolene
[2019-03-23] MEDS: POTASSIUM CHLORIDE 20 MEQ PACKET PO SCH (09:06)
[2019-03-23] MEDS: DOCUSATE SODIUM 100 MG CAPSULE PO SCH (09:06)
[2019-03-23] MEDS: FAMOTIDINE 20 MG TABLET PO SCH ×2 (09:06→21:09)
[2019-03-23] MEDS: LISINOPRIL 10 MG TABLET PO SCH (09:06)
[2019-03-23] MEDS: AMLODIPINE BESYLATE 10 MG TABLET PO SCH (09:06)
[2019-03-23] MEDS: CYANOCOBALAMIN/FA/PYRIDOXINE TABLET PO SCH (09:07)
[2019-03-23] MEDS: NYSTATIN/DEXAMETH/DIPHEN SUSP 120 ML PO SCH ×4 (09:08→21:56)
[2019-03-23] MEDS ORDERED: POTASSIUM CHLORIDE 20 MEQ PACKET PO ONE (11:00)
[2019-03-23] MEDS: CONTAINER EMPTY IV SCH (18:01)
[2019-03-23] MEDS: DANTROLENE SODIUM IV SCH (18:01)
[2019-03-23] MEDS: LORAZEPAM INJ 2 MG/1 ML VIAL IV PRN (19:42)
[2019-03-23] MEDS: ATORVASTATIN CALCIUM 80 MG TABLET PO SCH (21:09)
[2019-03-23] MEDS: NORMAL SALINE 1000 ML 1,000 ML IV PRN (21:10)
[2019-03-24] MEDS: AMPICILLIN SODIUM 2 GM in NORMAL SALINE 100 ML IV SCH ×6 (01:17→21:26)
[2019-03-24] MEDS: HEPARIN SOD (PORCINE) 5,000 UNIT/ML 1 ML VIAL SUBCUT SCH ×3 (05:10→21:27)
--- NOTE | 2019-03-24 08:13 | PDOC PROGRESS REPORT ---
Subjective Progress Note for:: 03/24/19 Subjective:: 03/20/2019-no complaints this a.m. 03/21/2019-no complaints this a.m. although patient is very confused 03/22/2019-no complaints at this time. Patient less confused this morning. 03/23/2019-no complaints this a.m. 03/24/2019-no complaints at this time patient much more alert awake Reason For Visit: UTI,DEHYDRATION,WEAKNESS Physical Exam Vital Signs: Temp Pulse Resp BP Pulse Ox 98.4 F 97 20 123/84 98 03/24/19 03:44 03/24/19 07:00 03/24/19 03:44 03/24/19 03:44 03/24/19 03:44 Intake & Output 03/23/19 03/24/19 03/25/19 06:59 06:59 06:59 Intake Total 1800 1802 Output Total 2600 1900 Balance -800 -98 Weight 69.5 kg 70.3 kg General appearance: PRESENT: no acute distress, well-developed, well-nourished Neck exam: ABSENT: carotid bruit, JVD, lymphadenopathy, thyromegaly Respiratory exam: PRESENT: clear to auscultation kevin. ABSENT: rales, rhonchi, wheezes Cardiovascular exam: PRESENT: RRR. ABSENT: diastolic murmur, rubs, systolic murmur Pulses: PRESENT: normal dorsalis pedis pul Vascular exam: PRESENT: normal capillary refill GI/Abdominal exam: PRESENT: normal bowel sounds, soft. ABSENT: distended, guarding, mass, organolmegaly, rebound, tenderness Extremities exam: PRESENT: full ROM. ABSENT: calf tenderness, clubbing, pedal edema Neurological exam: PRESENT: alert, awake, oriented to person Psychiatric exam: PRESENT: appropriate affect, normal mood. ABSENT: homicidal ideation, suicidal ideation Skin exam: PRESENT: dry, intact, warm. ABSENT: cyanosis, rash Results Laboratory Results: 03/23/19 04:09 03/23/19 04:09 03/18/19 08:45 Blood Blood Culture - Final NO GROWTH IN 5 DAYS 03/18/19 08:34 Blood Blood Culture - Final NO GROWTH IN 5 DAYS 03/15/19 03/15/19 03/17/19 02:28 02:28 19:10 Creatine Kinase 31 L Troponin I < 0.012 < 0.012 03/18/19 03/18/19 03/21/19 01:25 06:33 14:50 Creatine Kinase 85 Troponin I < 0.012 < 0.012 Impressions: Head CT 03/17/19 00:00 IMPRESSION: NO ACUTE INTRACRANIAL FINDINGS. EVIDENCE OF ACUTE STROKE: NO. Carotid Doppler Study 03/19/19 00:00 IMPRESSION: Calcified plaque in the carotid bulbs bilaterally. No hemodynamically significant stenosis. Assessment and Plan - Diagnosis (1) UTI (urinary tract infection) Qualifiers: Urinary tract infection type: acute cystitis Hematuria presence: without hematuria Qualified Code(s): N30.00 - Acute cystitis without hematuria Is this a current diagnosis for this admission?: Yes Plan: Urinalysis reveals UTI. Urine culture positive for enterococcus faecalis Blood cultures (2 of 4 bottles) Enterococcus faecalis Repeat blood cultures pending; of note, these were obtained prior to change to vancomycin. Patient is admitted to the medical floor on continuous cardiac telemetry. The patient was empirically placed on IV Rocephin; unfortunately sensitivities are resistant. AG of 2 with penicillins, therefore Zosyn is not appropriate. He is started on IV vancomycin; first dose today 03/18/2019. We will provide gentle IV fluids. 03/19/2019-urinalysis and culture shows enterococcus facialis susceptible to vancomycin. At this time patient remains on vancomycin IV 03/20/2019-continue vancomycin 03/21/2019-urinalysis shows enterococcus facialis. ID recommendations switch from vancomycin to ampicillin. Ampicillin 2 g IV every 4 hours at this time. 03/22/2019-ampicillin continues at this time will follow 03/23/2019-ampicillin continues 03/24/2019-continue ampicillin (2) Encephalopathy acute Is this a current diagnosis for this admission?: Yes Plan: Likely secondary to urinary tract infection and bacteremia. The patient has had multiple head CTs this week without evidence of acute stroke. MRI pending. Echocardiogram and carotid Doppler pending. HIV negative. RPR pending. Bilirubin slightly elevated, remaining LFTs and ammonia are normal. Troponins are negative x3, EKG is reassuring. Cultures and antibiotic's as above. Continue IV vancomycin for treatment of Enterococcus faecalis UTI and bacteremia. Unknown alcohol use history; will start IV banana bags. Supportive care. Aspiration and fall precautions. PT/OT/ST therapy. Discharge planning is consulted. 03/19/2019-patient pleasantly confused at this time. Working with physical therapy to get out of bed. IV vancomycin continues for enterococcus facialis UTI and bacteremia. Family states patient has a long history of EtOH abuse. Patient is given antibiotic at this time. We will continue to follow 03/20/2019-patient continues to be pleasantly confused. Most likely at his baseline. 03/21/2019-much more confused this a.m. Unsure of etiology. Patient does have a long history of EtOH abuse but should be over withdrawal timeframe. Continue to follow. I am awaiting echocardiogram may have to obtain CAROLE to rule out endocarditis. Although at this time I hear no rubs or murmurs. 03/22/2019-improved this a.m. After discussing patient's care with sister yesterday I had a feeling patient may be suffering from neuroleptic malignant syndrome secondary to antipsychotics, and Phenergan and possibly serotonin syndrome. I have stopped all patient's mind altering drugs at this time of given dantrolene 165 mg yesterday and will continue that daily. I will also give patient a one-time dose this morning of dantrolene 65 mg IV. I feel patient's showing improvement at this time I will continue to follow 03/23/2019-continues improvement. We will continue dantrolene daily at this time. 03/24/2019-continues to show daily improvement. Was able to answer simple questions this time. Continue dantrolene (3) HTN (hypertension) Qualifiers: Hypertension type: essential hypertension Qualified Code(s): I10 - Essential (primary) hypertension Is this a current diagnosis for this admission?: Yes Plan: Improved blood pressures today The patient endorses a history of hypertension, he is not noted to be on home antihypertensive therapy. Continue lisinopril IV hydralazine as needed for blood pressure control. 03/19/2019-stable at this time continue to follow 03/20/2019-starting to trend up this time. I added Norvasc 10 mg p.o. daily will follow 03/21/2019-improved with addition of Norvasc. Continue to follow 03/22/2019-stable continue to follow 03/23/2019-stable 03/24/2019-stable continue to follow (4) Altered mental status Qualifiers: Altered mental status type: disorientation Qualified Code(s): R41.0 - Disorientation, unspecified Is this a current diagnosis for this admission?: Yes Plan: As above. 03/19/2019-as above 03/20/2019 continues pleasantly confused. Most likely at baseline 03/21/2019-remains confused. Exacerbated today. Unknown etiology. Will give patient Ativan 2 mg IV every 4 hours as needed continue to await echocardiogram results. 03/22/2019-remains confused although he is able to respond today. After looking patient yesterday I thought he might be having either neuroleptic malignant syndrome or a serotonin storm. I have DC'd all medications including Cymbalta, Phenergan, and Seroquel. I have patient on dantrolene at this time we will continue to follow 03/23/2019-continues to show improvement. Continue dantrolene 03/24/2019-continues to show daily improvement. Able to answer simple questions at this time. Continue dantrolene (5) Neuroleptic malignant syndrome Is this a current diagnosis for this admission?: Yes Plan: 03/23/2019-patient was on Seroquel as well as Phenergan and a SSRI. Patient exhibited signs and symptoms of neuroleptic malignant syndrome. I have DC'd all these medications place patient on dantrolene for which she shown vast improvement daily. Dantrolene will continue 165 mg IV x10 days. 03/24/2019-continue to show improvement. We will continue to hold Seroquel, Phenergan and SSRI. Continue dantrolene 165 mg IV daily physical and Occupational Therapy. - Time Time Spent with patient: 15-24 minutes - Inpatient Certification Based on my medical assessment, after consideration of the patient's comorbidities, presenting symptoms, or acuity I expect that the services needed warrant INPATIENT care.: Yes I certify that my determination is in accordance with my understanding of Medicare's requirements for reasonable and necessary INPATIENT services [42 CFR 412.3e].: Yes Medical Necessity: Other - IV antibiotics, IV dantrolene
[2019-03-24] MEDS: CYANOCOBALAMIN/FA/PYRIDOXINE TABLET PO SCH (10:10)
[2019-03-24] MEDS: NYSTATIN/DEXAMETH/DIPHEN SUSP 120 ML PO SCH ×4 (10:10→21:38)
[2019-03-24] MEDS: FAMOTIDINE 20 MG TABLET PO SCH ×2 (10:10→21:27)
[2019-03-24] MEDS: AMLODIPINE BESYLATE 10 MG TABLET PO SCH (10:10)
[2019-03-24] MEDS: LISINOPRIL 10 MG TABLET PO SCH (10:10)
[2019-03-24] MEDS: POTASSIUM CHLORIDE 20 MEQ PACKET PO SCH (10:10)
[2019-03-24] MEDS: DOCUSATE SODIUM 100 MG CAPSULE PO SCH (10:10)
[2019-03-24] MEDS: DANTROLENE SODIUM IV SCH (17:29)
[2019-03-24] MEDS: CONTAINER EMPTY IV SCH (17:29)
[2019-03-24] MEDS: ATORVASTATIN CALCIUM 80 MG TABLET PO SCH (21:27)
[2019-03-25] MEDS: AMPICILLIN SODIUM 2 GM in NORMAL SALINE 100 ML IV SCH ×6 (02:50→22:11)
[2019-03-25] MEDS: HEPARIN SOD (PORCINE) 5,000 UNIT/ML 1 ML VIAL SUBCUT SCH ×3 (05:24→22:11)
[2019-03-25] MEDS: AMLODIPINE BESYLATE 10 MG TABLET PO SCH (09:21)
[2019-03-25] MEDS: LISINOPRIL 10 MG TABLET PO SCH (09:21)
[2019-03-25] MEDS: FAMOTIDINE 20 MG TABLET PO SCH ×3 (09:25→22:11)
[2019-03-25] MEDS: POTASSIUM CHLORIDE 20 MEQ PACKET PO SCH (09:25)
[2019-03-25] MEDS: CYANOCOBALAMIN/FA/PYRIDOXINE TABLET PO SCH (09:25)
[2019-03-25] MEDS: NYSTATIN/DEXAMETH/DIPHEN SUSP 120 ML PO SCH ×5 (09:25→22:12)
[2019-03-25] MEDS: DOCUSATE SODIUM 100 MG CAPSULE PO SCH ×2 (09:25→11:58)
--- NOTE | 2019-03-25 10:10 | PDOC PROGRESS REPORT ---
Subjective Progress Note for:: 03/25/19 Subjective:: 03/20/2019-no complaints this a.m. 03/21/2019-no complaints this a.m. although patient is very confused 03/22/2019-no complaints at this time. Patient less confused this morning. 03/23/2019-no complaints this a.m. 03/24/2019-no complaints at this time patient much more alert awake 923/19-no complaints this a.m. Reason For Visit: UTI,DEHYDRATION,WEAKNESS Physical Exam Vital Signs: Temp Pulse Resp BP Pulse Ox 97.5 F 99 16 107/69 96 03/25/19 07:17 03/25/19 07:17 03/25/19 07:17 03/25/19 07:17 03/25/19 07:17 Intake & Output 03/24/19 03/25/19 03/26/19 06:59 06:59 06:59 Intake Total 1802 650 200 Output Total 1900 1675 Balance -98 -1025 200 Weight 70.3 kg 70.5 kg General appearance: PRESENT: no acute distress, well-developed, well-nourished Neck exam: ABSENT: carotid bruit, JVD, lymphadenopathy, thyromegaly Respiratory exam: PRESENT: clear to auscultation kevin. ABSENT: rales, rhonchi, wheezes Cardiovascular exam: PRESENT: RRR. ABSENT: diastolic murmur, rubs, systolic murmur Pulses: PRESENT: +1 pedal pulses bilateral Vascular exam: PRESENT: normal capillary refill GI/Abdominal exam: PRESENT: normal bowel sounds, soft. ABSENT: distended, guar ding, mass, organolmegaly, rebound, tenderness Extremities exam: PRESENT: full ROM. ABSENT: calf tenderness, clubbing, pedal edema Neurological exam: PRESENT: alert, awake, oriented to person Psychiatric exam: PRESENT: appropriate affect, normal mood. ABSENT: homicidal ideation, suicidal ideation Skin exam: PRESENT: dry, intact, warm. ABSENT: cyanosis, rash Results Laboratory Results: 03/23/19 04:09 03/23/19 04:09 03/15/19 03/15/19 03/17/19 02:28 02:28 19:10 Creatine Kinase 31 L Troponin I < 0.012 < 0.012 03/18/19 03/18/19 03/21/19 01:25 06:33 14:50 Creatine Kinase 85 Troponin I < 0.012 < 0.012 Impressions: Head CT 03/17/19 00:00 IMPRESSION: NO ACUTE INTRACRANIAL FINDINGS. EVIDENCE OF ACUTE STROKE: NO. Carotid Doppler Study 03/19/19 00:00 IMPRESSION: Calcified plaque in the carotid bulbs bilaterally. No hemodynamically significant stenosis. Assessment and Plan - Diagnosis (1) UTI (urinary tract infection) Qualifiers: Urinary tract infection type: acute cystitis Hematuria presence: without hematuria Qualified Code(s): N30.00 - Acute cystitis without hematuria Is this a current diagnosis for this admission?: Yes Plan: Urinalysis reveals UTI. Urine culture positive for enterococcus faecalis Blood cultures (2 of 4 bottles) Enterococcus faecalis Repeat blood cultures pending; of note, these were obtained prior to change to vancomycin. Patient is admitted to the medical floor on continuous cardiac telemetry. The patient was empirically placed on IV Rocephin; unfortunately sensitivities are resistant. AG of 2 with penicillins, therefore Zosyn is not appropriate. He is started on IV vancomycin; first dose today 03/18/2019. We will provide gentle IV fluids. 03/19/2019-urinalysis and culture shows enterococcus facialis susceptible to vancomycin. At this time patient remains on vancomycin IV 03/20/2019-continue vancomycin 03/21/2019-urinalysis shows enterococcus facialis. ID recommendations switch from vancomycin to ampicillin. Ampicillin 2 g IV every 4 hours at this time. 03/22/2019-ampicillin continues at this time will follow 03/23/2019-ampicillin continues 03/24/2019-continue ampicillin 03/25/2019-ampicillin continues (2) Encephalopathy acute Is this a current diagnosis for this admission?: Yes Plan: Likely secondary to urinary tract infection and bacteremia. The patient has had multiple head CTs this week without evidence of acute stroke. MRI pending. Echocardiogram and carotid Doppler pending. HIV negative. RPR pending. Bilirubin slightly elevated, remaining LFTs and ammonia are normal. Troponins are negative x3, EKG is reassuring. Cultures and antibiotic's as above. Continue IV vancomycin for treatment of Enterococcus faecalis UTI and bacte remia. Unknown alcohol use history; will start IV banana bags. Supportive care. Aspiration and fall precautions. PT/OT/ST therapy. Discharge planning is consulted. 03/19/2019-patient pleasantly confused at this time. Working with physical therapy to get out of bed. IV vancomycin continues for enterococcus facialis UTI and bacteremia. Family states patient has a long history of EtOH abuse. Patient is given antibiotic at this time. We will continue to follow 03/20/2019-patient continues to be pleasantly confused. Most likely at his baseline. 03/21/2019-much more confused this a.m. Unsure of etiology. Patient does have a long history of EtOH abuse but should be over withdrawal timeframe. Continue to follow. I am awaiting echocardiogram may have to obtain CAROLE to rule out endocarditis. Although at this time I hear no rubs or murmurs. 03/22/2019-improved this a.m. After discussing patient's care with sister yesterday I had a feeling patient may be suffering from neuroleptic malignant syndrome secondary to antipsychotics, and Phenergan and possibly serotonin syndrome. I have stopped all patient's mind altering drugs at this time of given dantrolene 165 mg yesterday and will continue that daily. I will also give patient a one-time dose this morning of dantrolene 65 mg IV. I feel patient's showing improvement at this time I will continue to follow 03/23/2019-continues improvement. We will continue dantrolene daily at this time. 03/24/2019-continues to show daily improvement. Was able to answer simple questions this time. Continue dantrolene 03/25/2019-continues to improve daily. I did discuss care with Dr. Licea neurologist at [facility]. He states patient just needs more time for the neuroleptic malignant syndrome to aminah. No further exudation this time per neurology (3) HTN (hypertension) Qualifiers: Hypertension type: essential hypertension Qualified Code(s): I10 - Essential (primary) hypertension Is this a current diagnosis for this admission?: Yes Plan: Improved blood pressures today The patient endorses a history of hypertension, he is not noted to be on home antihypertensive therapy. Continue lisinopril IV hydralazine as needed for blood pressure control. 03/19/2019-stable at this time continue to follow 03/20/2019-starting to trend up this time. I added Norvasc 10 mg p.o. daily will follow 03/21/2019-improved with addition of Norvasc. Continue to follow 03/22/2019-stable continue to follow 03/23/2019-stable 03/24/2019-stable continue to follow 03/25/2019-stable (4) Altered mental status Qualifiers: Altered mental status type: disorientation Qualified Code(s): R41.0 - Disorientation, unspecified Is this a current diagnosis for this admission?: Yes Plan: As above. 03/19/2019-as above 03/20/2019 continues pleasantly confused. Most likely at baseline 03/21/2019-remains confused. Exacerbated today. Unknown etiology. Will give patient Ativan 2 mg IV every 4 hours as needed continue to await echocardiogram results. 03/22/2019-remains confused although he is able to respond today. After looking patient yesterday I thought he might be having either neuroleptic malignant syndrome or a serotonin storm. I have DC'd all medications including Cymbalta, Phenergan, and Seroquel. I have patient on dantrolene at this time we will continue to follow 03/23/2019-continues to show improvement. Continue dantrolene 03/24/2019-continues to show daily improvement. Able to answer simple questions at this time. Continue dantrolene 03/25/2019-continues show improvement daily. Continue dantrolene (5) Neuroleptic malignant syndrome Is this a current diagnosis for this admission?: Yes Plan: 03/23/2019-patient was on Seroquel as well as Phenergan and a SSRI. Patient exhibited signs and symptoms of neuroleptic malignant syndrome. I have DC'd all these medications place patient on dantrolene for which she shown vast improvement daily. Dantrolene will continue 165 mg IV x10 days. 03/24/2019-continue to show improvement. We will continue to hold Seroquel, Phenergan and SSRI. Continue dantrolene 165 mg IV daily physical and Occupational Therapy. 03/25/2019-continues to show improvement. I did discuss with Dr. Licea neurologist at [facility]. He states to run dantrolene for a total of 10 days and use low-dose benzodiazepines as needed. No other recognitions at this time. - Time Time Spent with patient: 25-34 minutes - Inpatient Certification Based on my medical assessment, after consideration of the patient's comorbidities, presenting symptoms, or acuity I expect that the services needed warrant INPATIENT care.: Yes I certify that my determination is in accordance with my understanding of Medicare's requirements for reasonable and necessary INPATIENT services [42 CFR 412.3e].: Yes Medical Necessity: Other - IV and buttocks, IV dantrolene
--- NOTE | 2019-03-25 17:49 | Progress Note ---
Provider Note Provider Note: 03/25/2019-after discussion with pharmacy and neurology I feel patient is overly sedated with dantrolene. I am going to stop the dantrolene this time hold it for several days and see if patient does not show improvement with this sedation. If patient needs anything for his symptoms of the neuroleptic malignant syndrome we can give Ativan. I am hoping that stopping this medication will allow him to awake up to his normal self. We will continue to follow
[2019-03-25] MEDS: ATORVASTATIN CALCIUM 80 MG TABLET PO SCH (22:11)
[2019-03-26] MEDS: LORAZEPAM INJ 2 MG/1 ML VIAL IV PRN (00:38)
[2019-03-26] MEDS: AMPICILLIN SODIUM 2 GM in NORMAL SALINE 100 ML IV SCH ×6 (02:30→21:11)
[2019-03-26] MEDS: HEPARIN SOD (PORCINE) 5,000 UNIT/ML 1 ML VIAL SUBCUT SCH ×3 (05:15→21:11)
[2019-03-26 05:45] LABS: HEMATOCRIT 30.8 % (37.9-51.0); HEMOGLOBIN 10.8 g/dL (13.5-17.0); MEAN CORPUSCULAR HEMOGLOBIN 36.7 pg (27.0-33.4); MEAN CORPUSCULAR HGB CONC 35.2 g/dL (32.0-36.0); MEAN CORPUSCULAR VOLUME 104 fl (80-97); PLATELET COUNT 183 10^3/uL (150-450); RED BLOOD COUNT 2.96 10^6/uL (4.35-5.55); RED CELL DISTRIBUTION WIDTH 13.9 % (11.5-14.0); WHITE BLOOD COUNT 7.8 10^3/uL (4.0-10.5)
[2019-03-26 06:14] LABS: ANION GAP 9 (5-19); BLOOD UREA NITROGEN 11 mg/dL (7-20); CARBON DIOXIDE 24 mmol/L (22-30); CHLORIDE 107 mmol/L (98-107); GLUCOSE 106 mg/dL (75-110); POTASSIUM 3.5 mmol/L (3.6-5.0)
--- NOTE | 2019-03-26 08:42 | RADIOLOGY REPORT (SQ) ---
EXAM DESCRIPTION: MRI HEAD WITHOUT COMPLETED DATE/TIME: 03/25/2019 9:07 pm REASON FOR STUDY: altered mental status COMPARISON: CT of the head without contrast from 03/17/2019 and 03/15/2019. TECHNIQUE: Multiplanar imaging includes non-contrasted T1, T2, FLAIR, and diffusion with ADC map seq uences. Images stored on PACS. LIMITATIONS: Evaluation is limited due to patient motion. FINDINGS: There is no abnormality of the midline structures. There is no restricted diffusion on the DWI. The focus of high T2/FLAIR signal within the left basal ganglia could represent a chronic lacunar infarct or a prominent Virchow Javon space. On the gradie nt echo sequence there is a focus of low signal intensity within the lateral segment of the left glob us pallidus that could represent a site of hemosiderin deposition. The confluent areas high T2/FLAIR signal within the supratentorial periventricular and subcortical wh ite matter are nonspecific but could represent the sequela of chronic microvascular ischemia. There is no acute intracranial hemorrhage, extra-axial fluid collection, mass, mass effect, or midlin e shift. There is no effacement of cerebral sulci or basal subarachnoid cisterns. The henry-white ma tter differentiation is preserved. There is no ventriculomegaly. The intracranial vascular flow voids are preserved. The globes are symmetric. There are no air-fluid levels in the paranasal sinuses. IMPRESSION: Limited MRI due to patient motion. No acute intracranial abnormality. EVIDENCE OF ACUTE STROKE: NO. TECHNICAL DOCUMENTATION: JOB ID: [id number] [employer]- All Rights Reserved Reading location - IP/workstation name: [email or web address]
[2019-03-26] MEDS: DOCUSATE SODIUM 100 MG CAPSULE PO SCH (09:02)
[2019-03-26] MEDS: NYSTATIN/DEXAMETH/DIPHEN SUSP 120 ML PO SCH ×4 (09:02→21:11)
[2019-03-26] MEDS: POTASSIUM CHLORIDE 20 MEQ PACKET PO SCH (09:09)
[2019-03-26] MEDS: LISINOPRIL 10 MG TABLET PO SCH (09:09)
[2019-03-26] MEDS: AMLODIPINE BESYLATE 10 MG TABLET PO SCH (09:09)
[2019-03-26] MEDS: FAMOTIDINE 20 MG TABLET PO SCH ×2 (09:10→21:11)
[2019-03-26] MEDS: CYANOCOBALAMIN/FA/PYRIDOXINE TABLET PO SCH (09:10)
--- NOTE | 2019-03-26 15:36 | RADIOLOGY REPORT (SQ) ---
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 TECHNIQUE: Axial images acquired through the cervical spine with intravenous contrast. Images revie wed with lung, soft tissue and bone windows. Reconstructed coronal and sagittal MPR images reviewed. Images stored on PACS. All CT scanners at this facility use dose modulation, iterative reconstruction, and/or weight based d osing when appropriate to reduce radiation dose to as low as reasonably achievable (ALARA). [facility]: Dose Right [facility]: CareDose [facility]: Dose Right [facility]: Teradose 4D [facility]: [employer] CONTRAST TYPE AND DOSE: 73 mL Omnipaque 350. RENAL FUNCTION: BUN 11 creatinine 0.54. LIMITATIONS: None. FINDINGS: ALIGNMENT: Anatomic. MINERALIZATION: Normal. VERTEBRAL BODIES: No fractures or dislocation. DISCS: Mild disc space narrowing with anterior osteophytes. FACETS, LATERAL MASSES, POSTERIOR ELEMENTS: No fractures. No dislocation. No acute findings. HARDWARE: None in the spine. VISUALIZED RIBS: No fractures. LUNG APICES AND SOFT TISSUES: Benign subcutaneous nodule in the posterior soft tissues. No other sig nificant or acute findings. OTHER: No enhancing lesions. No other significant finding. IMPRESSION: MILD DEGENERATIVE CHANGES. NO ENHANCING LESIONS. NO ACUTE FINDINGS. TECHNICAL DOCUMENTATION: JOB ID: [id number] [employer]- All Rights Reserved Reading location - IP/workstation name: [email or web address]
--- NOTE | 2019-03-26 15:42 | RADIOLOGY REPORT (SQ) ---
EXAM DESCRIPTION: CT THORACIC SPINE WITH COMPLETED DATE/TIME: 03/26/2019 2:57 pm REASON FOR STUDY: JTAC, r/o spinal abscess, mass COMPARISON: None. TECHNIQUE: Axial images acquired through the thoracic spine with intravenous contrast. Images revie wed with lung, soft tissue and bone windows. Reconstructed coronal and sagittal MPR images reviewed. Images stored on PACS. All CT scanners at this facility use dose modulation, iterative reconstruction, and/or weight based d osing when appropriate to reduce radiation dose to as low as reasonably achievable (ALARA). [facility]: Dose Right [facility]: CareDose [facility]: Dose Right [facility]: Teradose 4D [facility]: [employer] CONTRAST TYPE AND DOSE: 73 mL Omnipaque 350. RENAL FUNCTION: BUN 11 creatinine 0.54. LIMITATIONS: None. FINDINGS: VISUALIZED LUNGS: Small right pleural effusion. Scattered parenchymal densities in the po sterior right lung. SOFT TISSUES: No soft tissue swelling. No masses. VERTEBRAL BODIES: No fractures. No dislocation. No acute findings. DISCS: No significant disc space narrowing. ALIGNMENT: Normal. TRANSVERSE PROCESSES, POSTERIOR ELEMENTS: No fractures. No dislocation. No acute findings. HARDWARE: Spinal stimulator electrodes. VISUALIZED RIBS: No fractures. OTHER: No enhancing lesions. Surgical changes in the chest of esophagectomy and gastric pull-through . No other significant finding. IMPRESSION: 1. NO SIGNIFICANT FINDINGS IN THE THORACIC SPINE. NO ENHANCING LESIONS. SPINAL STIMULATOR ELECTRODE S PRESENT IN THE LOWER THORACIC SPINE. 2. SURGICAL CHANGES OF ESOPHAGECTOMY AND GASTRIC PULL-THROUGH. SMALL RIGHT PLEURAL EFFUSION. SCATTE RED PARENCHYMAL DENSITIES IN THE POSTERIOR RIGHT LUNG SECONDARY TO SCARRING VERSUS ATELECTASIS/INFILT RATE. INCOMPLETE VISUALIZATION OF THE CHEST. TECHNICAL DOCUMENTATION: JOB ID: [id number]- All Rights Reserved Reading location - IP/workstation name: [email or web address]
--- NOTE | 2019-03-26 15:47 | RADIOLOGY REPORT (SQ) ---
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 TECHNIQUE: Axial images acquired through the lumbar spine with intravenous contrast. Images reviewe d with lung, soft tissue and bone windows. Reconstructed coronal and sagittal MPR images reviewed. All images stored on PACS. All CT scanners at this facility use dose modulation, iterative reconstruction, and/or weight based d osing when appropriate to reduce radiation dose to as low as reasonably achievable (ALARA). [facility]: Dose Right [facility]: CareDose [facility]: Dose Right [facility]: Teradose 4D [facility]: [employer] CONTRAST TYPE AND DOSE: 73 mL Omnipaque 350. RENAL FUNCTION: BUN 11 creatinine 0.54. LIMITATIONS: None. FINDINGS: SEGMENTATION: Normal. No transitional anatomy. ALIGNMENT: Normal. VERTEBRAL BODIES: No fractures. No dislocation. No acute findings. DISCS: Mild disc space narrowing with small osteophytes. No significant protrusions. Study limited by lack of intrathecal contrast. PEDICLES, TRANSVERSE PROCESSES: No fractures. No dislocation. No acute findings. FACETS, POSTERIOR ELEMENTS: Mild facet arthropathy. No fractures. No dislocation. No spinal stenos is. HARDWARE: Spinal stimulator with electrodes in the posterior soft tissues with electrodes entering th e lower thoracic spine. VISUALIZED RIBS: No fractures. SOFT TISSUES: No significant or acute finding in adjacent soft tissues. OTHER: No other significant finding. IMPRESSION: MILD DEGENERATIVE CHANGES. NO ACUTE FINDINGS. NO ENHANCING LESIONS. TECHNICAL DOCUMENTATION: JOB ID: [id number] [employer]- All Rights Reserved Reading location - IP/workstation name: [email or web address]
--- NOTE | 2019-03-26 18:20 | PDOC PROGRESS REPORT ---
Subjective Progress Note for:: 03/26/19 Subjective:: Assumed care today. Reviewed chart and course. This is a 63-year-old male who initially presented with generalized weakness and confusion. He was initially treated for a urinary tract infection. Team he did have confusion and received Phenergan while on an SSRI. He reportedly subsequently developed rigidity and muscle spasms. He was treated for a possible neuroleptic malignant syndrome and was started on dantrolene. No acute event overnight. Upon encounter, he does not appear to be in distress. He appears lethargic but is easily arousable and is oriented to person. He says that he is in a rehab facility. He denies shortness of breath or chest pain. His left arm is slightly weaker than the right on neuro exam. He has symmetric weakness on both lower extremities. He did complain of tenderness on palpation of the upper spinal area. Will pursue imaging to rule out a spinal abscess or lesion. No clonus or Babinski. Reason For Visit: UTI,DEHYDRATION,WEAKNESS Physical Exam Vital Signs: Temp Pulse Resp BP Pulse Ox 97.5 F 100 16 137/85 H 98 03/26/19 11:00 03/26/19 11:00 03/26/19 11:00 03/26/19 11:00 03/26/19 11:00 Intake & Output 03/25/19 03/26/19 03/27/19 06:59 06:59 06:59 Intake Total 650 1820 200 Output Total 1675 875 Balance -1025 945 200 Weight 155 lb 6.814 oz 142 lb 3.17 oz General appearance: PRESENT: no acute distress, well-developed, well-nourished Head exam: PRESENT: atraumatic, normocephalic Eye exam: PRESENT: conjunctiva pink, EOMI, PERRLA. ABSENT: scleral icterus Ear exam: PRESENT: normal external ear exam Mouth exam: PRESENT: moist, tongue midline Neck exam: ABSENT: carotid bruit, JVD, lymphadenopathy, thyromegaly Respiratory exam: PRESENT: clear to auscultation kevin. ABSENT: rales, rhonchi, wheezes Cardiovascular exam: PRESENT: RRR. ABSENT: diastolic murmur, rubs, systolic mur mur Pulses: PRESENT: normal dorsalis pedis pul Vascular exam: PRESENT: normal capillary refill GI/Abdominal exam: PRESENT: normal bowel sounds, soft. ABSENT: distended, guarding, mass, organolmegaly, rebound, tenderness Rectal exam: PRESENT: deferred Extremities exam: PRESENT: full ROM. ABSENT: calf tenderness, clubbing, pedal edema Neurological exam: PRESENT: awake, oriented to person, oriented to place, CN II- XII grossly intact. ABSENT: oriented to time, oriented to situation, motor sensory deficit Results Laboratory Results: 03/26/19 04:44 03/26/19 04:44 03/26/19 03/26/19 04:44 04:44 WBC 7.8 RBC 2.96 L Hgb 10.8 L Hct 30.8 L MCV 104 H MCH 36.7 H MCHC 35.2 RDW 13.9 Plt Count 183 Sodium 139.9 Potassium 3.5 L Chloride 107 Carbon Dioxide 24 Anion Gap 9 BUN 11 Creatinine 0.54 Est GFR ( Amer) > 60 Glucose 106 Calcium 9.0 03/15/19 03/15/19 03/17/19 02:28 02:28 19:10 Creatine Kinase 31 L Troponin I < 0.012 < 0.012 03/18/19 03/18/19 03/21/19 01:25 06:33 14:50 Creatine Kinase 85 Troponin I < 0.012 < 0.012 Impressions: Head CT 03/17/19 00:00 IMPRESSION: NO ACUTE INTRACRANIAL FINDINGS. EVIDENCE OF ACUTE STROKE: NO. Carotid Doppler Study 03/19/19 00:00 IMPRESSION: Calcified plaque in the carotid bulbs bilaterally. No hemodynamically significant stenosis. Head MRI 03/25/19 15:45 IMPRESSION: Limited MRI due to patient motion. No acute intracranial ab normality. EVIDENCE OF ACUTE STROKE: NO. Assessment and Plan - Diagnosis (1) Encephalopathy acute Is this a current diagnosis for this admission?: Yes Plan: Deemed possibly from his UTI and bacteremia. (2) Neuroleptic malignant syndrome Is this a current diagnosis for this admission?: Yes Plan: Per previous provider who discussed with Dr. Licea, neurologist at [facility], recommended to run dantrolene for a total of 10 days and use low-dose benzodiazepines as needed. Dantrolene was later held as he was getting lethargic. (3) UTI (urinary tract infection) Qualifiers: Urinary tract infection type: acute cystitis Hematuria presence: without hematuria Qualified Code(s): N30.00 - Acute cystitis without hematuria Is this a current diagnosis for this admission?: Yes Plan: Urine culture grew Enterococcus faecalis. ID recommendations noted. Now on Ampicillin. - Time Time Spent with patient: 25-34 minutes
[2019-03-26] MEDS: ATORVASTATIN CALCIUM 80 MG TABLET PO SCH (21:11)
--- NOTE | 2019-03-27 00:18 | RADIOLOGY REPORT (SQ) ---
EXAM DESCRIPTION: [facility]Lex: CT CHEST WITHOUT IV CONTRAST CLINICAL HISTORY: 63 years Male; parenchymal densities on right lung TECHNIQUE: CT of the chest without contrast All CT scans at this facility use dose modulation, iterative reconstruction, and/or weight based dosing when appropriate to reduce radiation dose to as low as reasonably achievable. COMPARISON: CT 12/18/2017. No recent radiographs. FINDINGS: Chest: Changes of previous esophageal resection with pull-through procedure are noted, as on prior exam. Lungs: Right pleural effusion is maximum 2 cm AP thickness. There is associated partial atelectasis of the right lower lobe. The fluid also extends partially along the major fissure. Mild interstitial scarring in the right perihilar region is similar to the prior exam. Left lung is clear. No suspicious pulmonary nodules. Mediastinum: Moderate coronary artery calcifications. No mediastinal adenopathy. No mediastinal hematoma or air. Aorta: Mild calcific plaque. No aneurysm. Bones: Lower thoracic spine electrode is partially visualized. No suspicious lytic or blastic bone lesions. IMPRESSION: 1. Previous esophagectomy with gastric pull-through 2. Right pleural effusion, new since 12/18/2017. There is associated partial atelectasis in the right lung, but no suspicious pulmonary nodules or acute infiltrates. 3. No mediastinal adenopathy. 4. Atherosclerosis, including coronary artery calcifications.
[2019-03-27] MEDS: AMPICILLIN SODIUM 2 GM in NORMAL SALINE 100 ML IV SCH ×6 (02:06→22:04)
[2019-03-27] MEDS: HEPARIN SOD (PORCINE) 5,000 UNIT/ML 1 ML VIAL SUBCUT SCH ×2 (05:20→14:00)
[2019-03-27 06:25] LABS: POTASSIUM 3.3 mmol/L (3.6-5.0)
[2019-03-27] MEDS ORDERED: POTASSIUM CHLORIDE 10 MEQ CAPSULE.ER PO ONE (08:30)
[2019-03-27] MEDS: POTASSIUM CHLORIDE 20 MEQ PACKET PO SCH (11:30)
[2019-03-27] MEDS: CYANOCOBALAMIN/FA/PYRIDOXINE TABLET PO SCH (11:31)
[2019-03-27] MEDS: FAMOTIDINE 20 MG TABLET PO SCH ×2 (11:31→22:04)
[2019-03-27] MEDS: DOCUSATE SODIUM 100 MG CAPSULE PO SCH (11:31)
[2019-03-27] MEDS: LISINOPRIL 10 MG TABLET PO SCH (11:32)
[2019-03-27] MEDS: AMLODIPINE BESYLATE 10 MG TABLET PO SCH (11:33)
[2019-03-27] MEDS: NYSTATIN/DEXAMETH/DIPHEN SUSP 120 ML PO SCH ×4 (11:36→22:04)
[2019-03-27] MEDS ORDERED: POTASSIUM CHLORIDE 20 MEQ PACKET PO ONE (12:45)
--- NOTE | 2019-03-27 16:19 | PDOC PROGRESS REPORT ---
Subjective Progress Note for:: 03/27/19 Subjective:: Assumed care today. Reviewed chart and course. This is a 63-year-old male who initially presented with generalized weakness and confusion. He was initially treated for a urinary tract infection. Team he did have confusion and received Phenergan while on an SSRI. He reportedly subsequently developed rigidity and muscle spasms. He was treated for a possible neuroleptic malignant syndrome and was started on dantrolene. 03/26: Upon encounter, he does not appear to be in distress. He appears lethargic but is easily arousable and is oriented to person. He says that he is in a rehab facility. He denies shortness of breath or chest pain. His left arm is slightly weaker than the right on neuro exam. He has symmetric weakness on both lower extremities. He did complain of tenderness on palpation of the upper spinal area. Will pursue imaging to rule out a spinal abscess or lesion. No clonus or Babinski. 03/27: No acute event overnight. He denies acute complaints this morning. He still appears weak and slightly lethargic but easily arousable. On repeat neuro examination, he does continue to have bilateral extremity weakness but left arm is still noticeably slightly weaker than the right. He does have hyporeflexic DTRs. Noted subtle ptosis on the right. No apparent ophthalmoplegia on EOM testing. Reason For Visit: UTI,DEHYDRATION,WEAKNESS Physical Exam Vital Signs: Temp Pulse Resp BP Pulse Ox 98.6 F 111 H 18 119/80 99 03/27/19 11:24 03/27/19 11:24 03/27/19 11:24 03/27/19 11:24 03/27/19 11:24 Intake & Output 03/26/19 03/27/19 03/28/19 06:59 06:59 06:59 Intake Total 1820 700 100 Output Total 875 825 Balance 945 -125 100 Weight 142 lb 3.17 oz 143 lb 8.335 oz Results Laboratory Results: 03/26/19 04:44 03/27/19 05:20 Potassium 3.3 L Magnesium 1.7 03/25/19 17:10 Catheterized Urine Urine Culture - Final NO GROWTH 2 DAYS 03/15/19 03/15/19 03/17/19 02:28 02:28 19:10 Creatine Kinase 31 L Troponin I < 0.012 < 0.012 03/18/19 03/18/19 03/21/19 01:25 06:33 14:50 Creatine Kinase 85 Troponin I < 0.012 < 0.012 Impressions: Head CT 03/17/19 00:00 IMPRESSION: NO ACUTE INTRACRANIAL FINDINGS. EVIDENCE OF ACUTE STROKE: NO. Carotid Doppler Study 03/19/19 00:00 IMPRESSION: Calcified plaque in the carotid bulbs bilaterally. No hemodynamically significant stenosis. Head MRI 03/25/19 15:45 IMPRESSION: Limited MRI due to patient motion. No acute intracranial abnormality. EVIDENCE OF ACUTE STROKE: NO. Cervical Spine CT 03/26/19 00:00 IMPRESSION: MILD DEGENERATIVE CHANGES. NO ENHANCING LESIONS. NO ACUTE FINDINGS. Lumbar Spine CT 03/26/19 00:00 IMPRESSION: MILD DEGENERATIVE CHANGES. NO ACUTE FINDINGS. NO ENHANCING LESIONS. Thoracic Spine CT 03/26/19 00:00 IMPRESSION: 1. NO SIGNIFICANT FINDINGS IN THE THORACIC SPINE. NO ENHANCING LESIONS. SPINAL STIMULATOR ELECTRODES PRESENT IN THE LOWER THORACIC SPINE. 2. SURGICAL CHANGES OF ESOPHAGECTOMY AND GASTRIC PULL-THROUGH. SMALL RIGHT PLEURAL EFFUSION. SCATTERED PARENCHYMAL DENSITIES IN THE POSTERIOR RIGHT LUNG SECONDARY TO SCARRING VERSUS ATELECTASIS/INFILTRATE. INCOMPLETE VISUALIZATION OF THE CHEST. Chest CT 03/26/19 18:02 IMPRESSION: 1. Previous esophagectomy with gastric pull-through 2. Right pleural effusion, new since 12/18/2017. There is associated partial atelectasis in the right lung, but no suspicious pulmonary nodules or acute infiltrates. 3. No mediastinal adenopathy. 4. Atherosclerosis, including coronary artery calcifications. Assessment and Plan - Diagnosis (1) Weakness Is this a current diagnosis for this admission?: Yes Plan: 03/27: He still appears weak and slightly lethargic but easily arousable. On repeat neuro examination, he does continue to have bilateral extremity weakness but left arm is still noticeably slightly weaker than the right. He does have hyporeflexic DTRs. Noted subtle ptosis on the right. No apparent ophthalmoplegia on EOM testing. No clonus or Babinski. Patient's family did report he had significant diarrhea more than 2 weeks ago. 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 Will pursue an LP. Will consider further EMG or NCV testing. (2) Encephalopathy acute Is this a current diagnosis for this admission?: Yes Plan: Deemed possibly from his UTI and bacteremia. (3) Neuroleptic malignant syndrome Is this a current diagnosis for this admission?: Yes Plan: Per previous provider who discussed with Dr. Licea, neurologist at [facility], recommended to run dantrolene for a total of 10 days and use low-dose benzodiazepines as needed. Dantrolene was later held as he was getting lethargic. (4) UTI (urinary tract infection) Qualifiers: Urinary tract infection type: acute cystitis Hematuria presence: without hematuria Qualified Code(s): N30.00 - Acute cystitis without hematuria Is this a current diagnosis for this admission?: Yes Plan: Urine culture grew Enterococcus faecalis. ID recommendations noted. Now on Ampicillin. - Time Time Spent with patient: 25-34 minutes
[2019-03-27 16:34] LABS: PROTHROMBIN TIME 15.3 SEC (11.4-15.4)
[2019-03-27 16:35] LABS: PARTIAL THROMBOPLASTIN TIME 52.4 SEC (23.5-35.8)
[2019-03-27] MEDS: ATORVASTATIN CALCIUM 80 MG TABLET PO SCH (22:04)
[2019-03-28] MEDS: AMPICILLIN SODIUM 2 GM in NORMAL SALINE 100 ML IV SCH ×3 (02:48→10:08)
[2019-03-28] MEDS ORDERED: POTASSIUM CHLORIDE 10 MEQ CAPSULE.ER PO ONE (10:00)
--- NOTE | 2019-03-28 10:05 | RADIOLOGY REPORT (SQ) ---
EXAM DESCRIPTION: LUMBAR PUNCTURE; FLUORO/NEEDLE PLACEMENT/SPINE COMPLETED DATE/TIME: 03/28/2019 9:11 am; 03/28/2019 9:12 am REASON FOR STUDY: persistent AMS, uncertain etiology; AMS COMPARISON: MRI brain 03/25/2019 CT brain 03/17/2019 FLUOROSCOPY TIME: 46 seconds 1 digital radiographic image saved to PACS. TECHNIQUE: Fluoroscopic guided lumbar puncture. LIMITATIONS: None. PROCEDURE: After written consent and assessment were obtained, the patient was brought into the fluo roscopy room and placed prone on the table. The patient's lower back was prepped in a sterile fashio n and an entry site was selected under live fluoroscopic guidance. The entry site was anesthetized wi th 4.5 mL of 1% lidocaine. A 20 gauge needle was advanced through the skin and into the thecal sac at the right paracentral L2-3 level. After approximately 8 ml was drained, the needle was removed and a sterile bandage was placed of the site. Specimens were sent to the lab for testing. A fluoroscopi c spot image was saved to PACS confirming level access. FINDINGS: Clear CSF, opening pressure 9 cm of water IMPRESSION: Lumbar puncture under fluoroscopy. No immediate complication. COMMENT: Patient medication list reviewed: Yes- Quality ID# [id number]:Eligible professional attests to doc umenting in the medical record they obtained, updated, or reviewed the patient's current medications. . Quality ID [id number]: Final reports for procedures using fluoroscopy that document radiation exposure serena naya, or exposure time and number of fluorographic images (if radiation exposure indices are not avail able) TECHNICAL DOCUMENTATION: JOB ID: [id number] [employer]- All Rights Reserved Reading location - IP/workstation name: [email or web address]
[2019-03-28] MEDS: NYSTATIN/DEXAMETH/DIPHEN SUSP 120 ML PO SCH ×4 (10:06→22:55)
[2019-03-28] MEDS: FAMOTIDINE 20 MG TABLET PO SCH ×2 (10:07→22:55)
[2019-03-28] MEDS: DOCUSATE SODIUM 100 MG CAPSULE PO SCH (10:07)
[2019-03-28] MEDS: CYANOCOBALAMIN/FA/PYRIDOXINE TABLET PO SCH (10:07)
[2019-03-28] MEDS: AMLODIPINE BESYLATE 10 MG TABLET PO SCH (10:07)
[2019-03-28] MEDS: LISINOPRIL 10 MG TABLET PO SCH (10:07)
[2019-03-28 10:38] LABS: GLUCOSE,CSF 68 mg/dL (40-70); PROTEIN,CSF 150 mg/dL (12-60)
[2019-03-28 11:08] LABS: APPEARANCE ALL TUBES CLEAR; COLOR ALL TUBES COLORLESS; CSF TOTAL VOLUME 7.1 CC; CSF TUBE NUMBER 3; VOLUME TUBE 1 1.8 CC; VOLUME TUBE 2 1.8 CC; VOLUME TUBE 3 1.7 CC; VOLUME TUBE 4 1.8 CC
[2019-03-28 11:10] LABS: RED BLOOD CELL,CSF 0 /uL (0-10)
[2019-03-28 11:12] LABS: WHITE BLOOD CELL,CSF 1 /uL (0-5)
[2019-03-28] MEDS: NORMAL SALINE 1000 ML 1,000 ML IV PRN (13:30)
[2019-03-28] MEDS: IMMUNE GLOB GAM CAPRYLATE IV SCH (16:17)
[2019-03-28] MEDS: [UNRECOGNIZED DRUG - OTHER] IV SCH (16:17)
--- NOTE | 2019-03-28 17:59 | PDOC PROGRESS REPORT ---
Subjective Progress Note for:: 03/28/19 Subjective:: Assumed care today. Reviewed chart and course. This is a 63-year-old male who initially presented with generalized weakness and confusion. He was initially treated for a urinary tract infection. Team he did have confusion and received Phenergan while on an SSRI. He reportedly subsequently developed rigidity and muscle spasms. He was treated for a possible neuroleptic malignant syndrome and was started on dantrolene. 03/26: Upon encounter, he does not appear to be in distress. He appears lethargic but is easily arousable and is oriented to person. He says that he is in a rehab facility. He denies shortness of breath or chest pain. His left arm is slightly weaker than the right on neuro exam. He has symmetric weakness on both lower extremities. He did complain of tenderness on palpation of the upper spinal area. Will pursue imaging to rule out a spinal abscess or lesion. No clonus or Babinski. 03/27: He denies acute complaints this morning. He still appears weak and slightly lethargic but easily arousable. On repeat neuro examination, he does continue to have bilateral extremity weakness but left arm is still noticeably slightly weaker than the right. He does have hyporeflexic DTRs. Noted subtle ptosis on the right. No apparent ophthalmoplegia on EOM testing. 03/28: No acute event overnight. He is more conversant today. He is oriented to person and place. He reports having "pins and needles" sensation on both of his hands. He continues to be weak on 4 extremities but his left arm is still very subtly weaker than the right with weaker gold buyer on the left hand. DTRs remain hyporeflexic. No ptosis noted today. LP was pursued which showed elevated CSF protein and normal WBC consistent with albuminocytologic dissociation. 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 Will further discuss new findings with Neurology for possible IVIG therapy. Reason For Visit: UTI,DEHYDRATION,WEAKNESS Physical Exam Vital Signs: Temp Pulse Resp BP Pulse Ox 97.6 F 112 H 16 111/83 97 03/28/19 07:53 03/28/19 07:53 03/28/19 07:53 03/28/19 07:53 03/28/19 07:53 Intake & Output 03/27/19 03/28/19 03/29/19 06:59 06:59 06:59 Intake Total 700 500 Output Total 825 525 Balance -125 -25 Weight 143 lb 8.335 oz 144 lb 6.444 oz General appearance: PRESENT: no acute distress, well-developed, well-nourished Head exam: PRESENT: atraumatic, normocephalic Eye exam: PRESENT: conjunctiva pink, EOMI, PERRLA. ABSENT: scleral icterus Ear exam: PRESENT: normal external ear exam Mouth exam: PRESENT: moist, tongue midline Neck exam: ABSENT: carotid bruit, JVD, lymphadenopathy, thyromegaly Respiratory exam: PRESENT: clear to auscultation kevin. ABSENT: rales, rhonchi, wheezes Cardiovascular exam: PRESENT: RRR. ABSENT: diastolic murmur, rubs, systolic murmur Pulses: PRESENT: normal dorsalis pedis pul GI/Abdominal exam: PRESENT: normal bowel sounds, soft. ABSENT: distended, guarding, mass, organolmegaly, rebound, tenderness Rectal exam: PRESENT: deferred Neurological exam: PRESENT: alert, awake, oriented to person, oriented to place, CN II-XII grossly intact Results Laboratory Results: 03/26/19 04:44 03/27/19 15:10 03/27/19 15:10 Potassium 3.3 L 03/25/19 17:10 Catheterized Urine Urine Culture - Final NO GROWTH 2 DAYS 03/15/19 03/15/19 03/17/19 02:28 02:28 19:10 Creatine Kinase 31 L Troponin I < 0.012 < 0.012 03/18/19 03/18/19 03/21/19 01:25 06:33 14:50 Creatine Kinase 85 Troponin I < 0.012 < 0.012 Impressions: Head CT 03/17/19 00:00 IMPRESSION: NO ACUTE INTRACRANIAL FINDINGS. EVIDENCE OF ACUTE STROKE: NO. Carotid Doppler Study 03/19/19 00:00 IMPRESSION: Calcified plaque in the carotid bulbs bilaterally. No hemodynamically significant stenosis. Head MRI 03/25/19 15:45 IMPRESSION: Limited MRI due to patient motion. No acute intracranial abnormality. EVIDENCE OF ACUTE STROKE: NO. Cervical Spine CT 03/26/19 00:00 IMPRESSION: MILD DEGENERATIVE CHANGES. NO ENHANCING LESIONS. NO ACUTE FINDINGS. Lumbar Spine CT 03/26/19 00:00 IMPRESSION: MILD DEGENERATIVE CHANGES. NO ACUTE FINDINGS. NO ENHANCING LESIONS. Thoracic Spine CT 03/26/19 00:00 IMPRESSION: 1. NO SIGNIFICANT FINDINGS IN THE THORACIC SPINE. NO ENHANCING LESIONS. SPINAL STIMULATOR ELECTRODES PRESENT IN THE LOWER THORACIC SPINE. 2. SURGICAL CHANGES OF ESOPHAGECTOMY AND GASTRIC PULL-THROUGH. SMALL RIGHT PLEURAL EFFUSION. SCATTERED PARENCHYMAL DENSITIES IN THE POSTERIOR RIGHT LUNG SECONDARY TO SCARRING VERSUS ATELECTASIS/INFILTRATE. INCOMPLETE VISUALIZATION OF THE CHEST. Chest CT 03/26/19 18:02 IMPRESSION: 1. Previous esophagectomy with gastric pull-through 2. Right pleural effusion, new since 12/18/2017. There is associated partial atelectasis in the right lung, but no suspicious pulmonary nodules or acute infiltrates. 3. No mediastinal adenopathy. 4. Atherosclerosis, including coronary artery calcifications. Assessment and Plan - Diagnosis (1) Weakness Is this a current diagnosis for this admission?: Yes Plan: 03/27: He still appears weak and slightly lethargic but easily arousable. On repeat neuro examination, he does continue to have bilateral extremity weakness but left arm is still noticeably slightly weaker than the right. He does have hyporeflexic DTRs. Noted subtle ptosis on the right. No apparent ophthalmoplegia on EOM testing. No clonus or Babinski. Patient's family did report he had significant diarrhea more than 2 weeks ago. 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 Will pursue an LP. Will consider further EMG or NCV testing. 03/28: He is more conversant today. He is oriented to person and place. He reports having "pins and needles" sensation on both of his hands. He continues to be weak on 4 extremities but his left arm is still very subtly weaker than the right with weaker gold buyer on the left hand. DTRs remain hyporeflexic. No ptosis noted today. LP was pursued which showed elevated CSF protein and normal WBC consistent with albuminocytologic dissociation. 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 Will further discuss new findings with Neurology for possible IVIG therapy. Will also check vital capacity and NIF. (2) Encephalopathy acute Is this a current diagnosis for this admission?: Yes Plan: Deemed possibly from his UTI and bacteremia. (3) Neuroleptic malignant syndrome Is this a current diagnosis for this admission?: Yes Plan: Per previous provider who discussed with Dr. Licea, neurologist at [facility], recommended to run dantrolene for a total of 10 days and use low-dose benzodiazepines as needed. Dantrolene was later held as he was getting lethargic. (4) UTI (urinary tract infection) Qualifiers: Urinary tract infection type: acute cystitis Hematuria presence: without hematuria Qualified Code(s): N30.00 - Acute cystitis without hematuria Is this a current diagnosis for this admission?: Yes Plan: Urine culture grew Enterococcus faecalis. ID recommendations noted. Now on Ampicillin.
--- NOTE | 2019-03-28 18:12 | Progress Note ---
Provider Note Provider Note: Rediscussed to with Dr. Licea, on-call neurologist at 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 He recommends proceeding with IVIG therapy for 5 days. He has accepted patient for transfer for further EMG and NCV testing but unfortunately [facility] does not have any beds at the moment and advised they won't have any bed in the next 36 hrs at least. Also discussed case with Dr. Robles, on-call neurologist in [facility] [place] who deems EMG/NCV testing can be deferred later and to proceed with empiric treatment with IVIG now. He has also accepted patient to be transferred under his service but patient will be placed on a waiting list as [facility] does not have available beds at the moment as well.
[2019-03-28] MEDS: ATORVASTATIN CALCIUM 80 MG TABLET PO SCH (22:55)
[2019-03-29] MEDS: POTASSIUM CHLORIDE 20 MEQ PACKET PO SCH (09:18)
[2019-03-29] MEDS: NYSTATIN/DEXAMETH/DIPHEN SUSP 120 ML PO SCH ×4 (09:18→22:01)
[2019-03-29] MEDS: AMLODIPINE BESYLATE 10 MG TABLET PO SCH (09:19)
[2019-03-29] MEDS: CYANOCOBALAMIN/FA/PYRIDOXINE TABLET PO SCH (09:19)
[2019-03-29] MEDS: FAMOTIDINE 20 MG TABLET PO SCH ×2 (09:19→21:59)
[2019-03-29] MEDS: LISINOPRIL 10 MG TABLET PO SCH (09:19)
[2019-03-29] MEDS: DOCUSATE SODIUM 100 MG CAPSULE PO SCH (09:19)
[2019-03-29] MEDS: [UNRECOGNIZED DRUG - OTHER] IV SCH (16:30)
[2019-03-29] MEDS: IMMUNE GLOB GAM CAPRYLATE IV SCH (16:30)
--- NOTE | 2019-03-29 16:47 | PDOC TRANSFER SUMMARY ---
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) Is this a current diagnosis for this admission?: Yes (2) Weakness Is this a current diagnosis for this admission?: Yes (3) Encephalopathy acute Is this a current diagnosis for this admission?: Yes (4) Neuroleptic malignant syndrome Is this a current diagnosis for this admission?: Yes (5) UTI (urinary tract infection) Is this a current diagnosis for this admission?: Yes - Transfer Medications Home Medications: Cyanocobalamin/FA/Pyridoxine [Folbee Tablet] 1 tab PO DAILY 03/14/19 Tapentadol Hydrochloride [Nucynta] 50 mg PO Q8HP PRN 03/14/19 Duloxetine HCl [Cymbalta 30 mg Capsule.dr] 30 mg PO DAILY 03/15/19 Transfer Medications: Current Medications Acetaminophen (Tylenol 325 Mg Tablet) 650 mg PO Q4HP PRN PRN Reason: FOR PAIN OR TEMP Stop: 04/14/19 10:03 Last Admin: 03/19/19 09:41 Dose: 650 mg Documented by: Albuterol (Ventolin 0.083% Neb 2.5 Mg/3 Ml Ampul) 2.5 mg NEB RTQ4HP PRN PRN Reason: SHORTNESS OF BREATH Stop: 04/14/19 10:03 Amlodipine Besylate (Norvasc 10 Mg Tablet) 10 mg PO DAILY JYOTI Stop: 04/19/19 09:59 Last Admin: 03/29/19 09:19 Dose: 10 mg Documented by: Atorvastatin Calcium (Lipitor 80 Mg Tablet) 80 mg PO QHS JYOTI Stop: 04/16/19 21:59 Last Admin: 03/28/19 22:55 Dose: 80 mg Documented by: Diphenhydramine/Hydrocorti/Nystatin (Magic Mouthwash (Omh Formula) Susp) 5 ml PO QID JYOTI Stop: 04/17/19 10:59 Last Admin: 03/29/19 16:30 Dose: Not Given Documented by: Docusate Sodium (Colace 100 Mg Capsule) 100 mg PO DAILY JYOTI Stop: 04/18/19 09:59 Last Admin: 03/29/19 09:19 Dose: 100 mg Documented by: Famotidine (Pepcid 20 Mg Tablet) 20 mg PO Q12 PENDING SALE TO [facility] Stop: 04/16/19 21:59 Last Admin: 03/29/19 09:19 Dose: 20 mg Documented by: Folic Acid (Folbee Tablet) 1 tab PO DAILY PENDING SALE TO [facility] Stop: 04/15/19 09:59 Last Admin: 03/29/19 09:19 Dose: 1 tab Documented by: Heparin Sodium (Porcine) (Heparin Inj 5,000 Units/Ml 1 Ml Vial) 5,000 unit SUBCUT Q8 PENDING SALE TO [facility] Stop: 04/14/19 13:59 Last Admin: 03/27/19 14:00 Dose: 5,000 unit Documented by: Hydralazine HCl (Apresoline Inj/Pf 20 Mg/1 Ml Sdv) 10 mg IV Q4HP PRN PRN Reason: SBP>180, DBP>100 Stop: 04/14/19 17:31 Sodium Chloride (Nacl 0.9% 1000 Ml Iv Soln) 1,000 mls @ 30 mls/hr IV CONTINUOUS PRN PRN Reason: THIS MED IS NOT "PRN" Stop: 04/21/19 09:26 Last Admin: 03/28/19 13:30 Dose: 30 mls/hr Documented by: Immune Globulin 20 gm/ Immune Globulin 5 gm/ Miscellaneous Information 250 mls @ 0 mls/hr IV DAILY@1500 PENDING SALE TO [facility] Stop: 04/01/19 15:01 Last Admin: 03/29/19 16:30 Dose: 30 mls/hr Documented by: Lisinopril (Prinivil 10 Mg Tablet) 20 mg PO DAILY PENDING SALE TO [facility] Stop: 04/15/19 12:59 Last Admin: 03/29/19 09:19 Dose: 20 mg Documented by: Ondansetron HCl (Zofran Inj/Pf 4 Mg/2 Ml Sdv) 4 mg IV Q6HP PRN PRN Reason: FOR NAUSEA/VOMITING Stop: 04/14/19 10:03 Last Admin: 03/18/19 10:00 Dose: 4 mg Documented by: Potassium Chloride (Potassium Chloride 20 Meq Packet) 40 meq PO DAILY PENDING SALE TO [facility] Stop: 04/28/19 09:59 Last Admin: 03/29/19 09:18 Dose: 40 meq Documented by: - Allergies Allergies/Adverse Reactions: No Known Allergies Allergy (Unverified 09/11/19 12:04) Hospital Course Hospital Course: This is a 63-year-old male who initially presented with generalized weakness and confusion. He was initially treated for a urinary tract infection. He reportedly subsequently developed rigidity and muscle spasms after being given Phenergan while being on an SSRI. He was treated for a possible neuroleptic malignant syndrome and was started on dantrolene. 03/26: Upon encounter, he does not appear to be in distress. He appears lethargic but is easily arousable and is oriented to person. He says that he is in a rehab facility. He denies shortness of breath or chest pain. His left arm is slightly weaker than the right on neuro exam. He has symmetric weakness on both lower extremities. He did complain of tenderness on palpation of the upper spinal area. Will pursue imaging to rule out a spinal abscess or lesion. No clonus or Babinski. 03/27: He denies acute complaints this morning. He still appears weak and slightly lethargic but easily arousable. On repeat neuro examination, he does continue to have bilateral extremity weakness but left arm is still noticeably slightly weaker than the right. He does have hyporeflexic DTRs. Noted subtle ptosis on the right. No apparent ophthalmoplegia on EOM testing. 03/28: No acute event overnight. He is more conversant today. He is oriented to person and place. He reports having "pins and needles" sensation on both of his hands. He continues to be weak on 4 extremities but his left arm is still very subtly weaker than the right with weaker stabilizer operator on the left hand. DTRs remain hyporeflexic. No ptosis noted today. LP was pursued which showed elevated CSF protein and normal WBC consistent with albuminocytologic dissociation. 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 Will further discuss new findings with Neurology for possible IVIG therapy. Discussed case with Dr. Robles, on-call neurologist in [facility] [place] who deems EMG/NCV testing can be deferred later and to proceed with empiric treatment with IVIG now. He has also accepted patient to be transferred under his service but patient will be placed on a waiting list as [facility] does not have available beds at the moment as well. Physical Exam Vital Signs: Temp Pulse Resp BP Pulse Ox 98.1 F 109 H 18 119/69 100 03/29/19 12:01 03/29/19 14:00 03/29/19 12:01 03/29/19 12:01 03/29/19 12:01 Intake & Output 03/28/19 03/29/19 03/30/19 06:59 06:59 06:59 Intake Total 600 886 Output Total 525 700 Balance 75 186 Weight 144 lb 6.444 oz 143 lb 4.807 oz General appearance: PRESENT: no acute distress, well-developed, well-nourished Head exam: PRESENT: atraumatic, normocephalic Eye exam: PRESENT: conjunctiva pink, EOMI, PERRLA. ABSENT: scleral icterus Ear exam: PRESENT: normal external ear exam Mouth exam: PRESENT: moist, tongue midline Neck exam: ABSENT: carotid bruit, JVD, lymphadenopathy, thyromegaly Respiratory exam: PRESENT: clear to auscultation kevin. ABSENT: rales, rhonchi, wheezes Cardiovascular exam: PRESENT: RRR. ABSENT: diastolic murmur, rubs, systolic murmur Pulses: PRESENT: normal dorsalis pedis pul GI/Abdominal exam: PRESENT: normal bowel sounds, soft. ABSENT: distended, guarding, mass, organolmegaly, rebound, tenderness Rectal exam: PRESENT: deferred Neurological exam: PRESENT: alert, awake, oriented to person, oriented to place, other - Weak on 4 extremities but his left arm is still very subtly weaker than the right with weaker stabilizer operator on the left hand. DTRs remain hyporeflexic. Results Laboratory Results: 03/26/19 04:44 03/27/19 15:10 03/15/19 03/15/19 03/17/19 02:28 02:28 19:10 Creatine Kinase 31 L Troponin I < 0.012 < 0.012 03/18/19 03/18/19 03/21/19 01:25 06:33 14:50 Creatine Kinase 85 Troponin I < 0.012 < 0.012 Impressions: Head CT 03/17/19 00:00 IMPRESSION: NO ACUTE INTRACRANIAL FINDINGS. EVIDENCE OF ACUTE STROKE: NO. Carotid Doppler Study 03/19/19 00:00 IMPRESSION: Calcified plaque in the carotid bulbs bilaterally. No he modynamically significant stenosis. Head MRI 03/25/19 15:45 IMPRESSION: Limited MRI due to patient motion. No acute intracranial abnormality. EVIDENCE OF ACUTE STROKE: NO. Cervical Spine CT 03/26/19 00:00 IMPRESSION: MILD DEGENERATIVE CHANGES. NO ENHANCING LESIONS. NO ACUTE FINDINGS. Lumbar Spine CT 03/26/19 00:00 IMPRESSION: MILD DEGENERATIVE CHANGES. NO ACUTE FINDINGS. NO ENHANCING LESIONS. Thoracic Spine CT 03/26/19 00:00 IMPRESSION: 1. NO SIGNIFICANT FINDINGS IN THE THORACIC SPINE. NO ENHANCING LESIONS. SPINAL STIMULATOR ELECTRODES PRESENT IN THE LOWER THORACIC SPINE. 2. SURGICAL CHANGES OF ESOPHAGECTOMY AND GASTRIC PULL-THROUGH. SMALL RIGHT PLEURAL EFFUSION. SCATTERED PARENCHYMAL DENSITIES IN THE POSTERIOR RIGHT LUNG SECONDARY TO SCARRING VERSUS ATELECTASIS/INFILTRATE. INCOMPLETE VISUALIZATION OF THE CHEST. Chest CT 03/26/19 18:02 IMPRESSION: 1. Previous esophagectomy with gastric pull-through 2. Right pleural effusion, new since 12/18/2017. There is associated partial atelectasis in the right lung, but no suspicious pulmonary nodules or acute infiltrates. 3. No mediastinal adenopathy. 4. Atherosclerosis, including coronary artery calcifications. Guidance Fluoroscopy 03/28/19 00:00 IMPRESSION: Lumbar puncture under fluoroscopy. No immediate complication. Lumbar Puncture 03/28/19 00:00
[2019-03-29] MEDS: ATORVASTATIN CALCIUM 80 MG TABLET PO SCH (21:59)
[2019-03-30] MEDS: NORMAL SALINE 1000 ML 1,000 ML IV PRN (03:41)
[2019-03-30] MEDS: FAMOTIDINE 20 MG TABLET PO SCH ×2 (10:45→22:12)
[2019-03-30] MEDS: POTASSIUM CHLORIDE 20 MEQ PACKET PO SCH (10:45)
[2019-03-30] MEDS: LISINOPRIL 10 MG TABLET PO SCH (10:45)
[2019-03-30] MEDS: AMLODIPINE BESYLATE 10 MG TABLET PO SCH (10:45)
[2019-03-30] MEDS: DOCUSATE SODIUM 100 MG CAPSULE PO SCH (10:57)
[2019-03-30] MEDS: CYANOCOBALAMIN/FA/PYRIDOXINE TABLET PO SCH (10:58)
[2019-03-30] MEDS: NYSTATIN/DEXAMETH/DIPHEN SUSP 120 ML PO SCH ×4 (11:01→22:13)
--- NOTE | 2019-03-30 14:47 | PDOC PROGRESS REPORT ---
Subjective Progress Note for:: 03/30/19 Subjective:: Assumed care today. Reviewed chart and course. This is a 63-year-old male who initially presented with generalized weakness and confusion. He was initially treated for a urinary tract infection. Team he did have confusion and received Phenergan while on an SSRI. He reportedly subsequently developed rigidity and muscle spasms. He was treated for a possible neuroleptic malignant syndrome and was started on dantrolene. 03/26: Upon encounter, he does not appear to be in distress. He appears lethargic but is easily arousable and is oriented to person. He says that he is in a rehab facility. He denies shortness of breath or chest pain. His left arm is slightly weaker than the right on neuro exam. He has symmetric weakness on both lower extremities. He did complain of tenderness on palpation of the upper spinal area. Will pursue imaging to rule out a spinal abscess or lesion. No clonus or Babinski. 03/27: He denies acute complaints this morning. He still appears weak and slightly lethargic but easily arousable. On repeat neuro examination, he does continue to have bilateral extremity weakness but left arm is still noticeably slightly weaker than the right. He does have hyporeflexic DTRs. Noted subtle ptosis on the right. No apparent ophthalmoplegia on EOM testing. 03/28: No acute event overnight. He is more conversant today. He is oriented to person and place. He reports having "pins and needles" sensation on both of his hands. He continues to be weak on 4 extremities but his left arm is still very subtly weaker than the right with weaker superintendent warehouse on the left hand. DTRs remain hyporeflexic. No ptosis noted today. LP was pursued which showed elevated CSF protein and normal WBC consistent with albuminocytologic dissociation. 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 Will further discuss new findings with Neurology for possible IVIG therapy. 03/29: Discussed case with Dr. Robles, on-call neurologist in [facility] at [place] who deems EMG/NCV testing can be deferred later and to proceed with empiric treatment with IVIG now. He has also accepted patient to be transferred under his service but patient will be placed on a waiting list as [facility] does not have available beds at the moment as well. Vital capacity assessed at 2.1L and NIF at -18 cm H2O. 03/30: No acute event overnight. On day 2 of IVIG. He denies acute complaints. No significant change from yesterday. Awaiting bed availability at [facility]. Reason For Visit: UTI,DEHYDRATION,WEAKNESS Physical Exam Vital Signs: Temp Pulse Resp BP Pulse Ox 98.0 F 105 H 17 128/83 H 100 03/30/19 07:32 03/30/19 07:32 03/30/19 07:32 03/30/19 07:32 03/30/19 07:32 Intake & Output 03/29/19 03/30/19 03/31/19 06:59 06:59 06:59 Intake Total 886 1168 240 Output Total 700 850 300 Balance 186 318 -60 Weight 143 lb 4.807 oz 145 lb 8.081 oz General appearance: PRESENT: no acute distress, well-developed, well-nourished Head exam: PRESENT: atraumatic, normocephalic Eye exam: PRESENT: conjunctiva pink, EOMI, PERRLA. ABSENT: scleral icterus Ear exam: PRESENT: normal external ear exam Mouth exam: PRESENT: moist, tongue midline Neck exam: ABSENT: carotid bruit, JVD, lymphadenopathy, thyromegaly Respiratory exam: PRESENT: clear to auscultation kevin. ABSENT: rales, rhonchi, wheezes Cardiovascular exam: PRESENT: RRR. ABSENT: diastolic murmur, rubs, systolic murmur Pulses: PRESENT: normal dorsalis pedis pul GI/Abdominal exam: PRESENT: normal bowel sounds, soft. ABSENT: distended, guarding, mass, organolmegaly, rebound, tenderness Rectal exam: PRESENT: deferred Neurological exam: PRESENT: alert, awake, oriented to person, oriented to place, CN II-XII grossly intact Results Laboratory Results: 03/26/19 04:44 03/27/19 15:10 03/15/19 03/15/19 03/17/19 02:28 02:28 19:10 Creatine Kinase 31 L Troponin I < 0.012 < 0.012 03/18/19 03/18/19 03/21/19 01:25 06:33 14:50 Creatine Kinase 85 Troponin I < 0.012 < 0.012 Impressions: Head CT 03/17/19 00:00 IMPRESSION: NO ACUTE INTRACRANIAL FINDINGS. EVIDENCE OF ACUTE STROKE: NO. Carotid Doppler Study 03/19/19 00:00 IMPRESSION: Calcified plaque in the carotid bulbs bilaterally. No hemodynamically significant stenosis. Head MRI 03/25/19 15:45 IMPRESSION: Limited MRI due to patient motion. No acute intracranial abnormality. EVIDENCE OF ACUTE STROKE: NO. Cervical Spine CT 03/26/19 00:00 IMPRESSION: MILD DEGENERATIVE CHANGES. NO ENHANCING LESIONS. NO ACUTE FINDINGS. Lumbar Spine CT 03/26/19 00:00 IMPRESSION: MILD DEGENERATIVE CHANGES. NO ACUTE FINDINGS. NO ENHANCING LESIONS. Thoracic Spine CT 03/26/19 00:00 IMPRESSION: 1. NO SIGNIFICANT FINDINGS IN THE THORACIC SPINE. NO ENHANCING LESIONS. SPINAL STIMULATOR ELECTRODES PRESENT IN THE LOWER THORACIC SPINE. 2. SURGICAL CHANGES OF ESOPHAGECTOMY AND GASTRIC PULL-THROUGH. SMALL RIGHT PLEURAL EFFUSION. SCATTERED PARENCHYMAL DENSITIES IN THE POSTERIOR RIGHT LUNG SECONDARY TO SCARRING VERSUS ATELECTASIS/INFILTRATE. INCOMPLETE VISUALIZATION OF THE CHEST. Chest CT 03/26/19 18:02 IMPRESSION: 1. Previous esophagectomy with gastric pull-through 2. Right pleural effusion, new since 12/18/2017. There is associated partial atelectasis in the right lung, but no suspicious pulmonary nodules or acute infiltrates. 3. No mediastinal adenopathy. 4. Atherosclerosis, including coronary artery calcifications. Guidance Fluoroscopy 03/28/19 00:00 IMPRESSION: Lumbar puncture under fluoroscopy. No immediate complication. Lumbar Puncture 03/28/19 00:00 IMPRESSION: Lumbar puncture under fluoroscopy. No immediate complication. 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 (2) Weakness Is this a current diagnosis for this admission?: Yes Plan: 03/27: He still appears weak and slightly lethargic but easily arousable. On repeat neuro examination, he does continue to have bilateral extremity weakness but left arm is still noticeably slightly weaker than the right. He does have hyporeflexic DTRs. Noted subtle ptosis on the right. No apparent ophthalmoplegia on EOM testing. No clonus or Babinski. Patient's family did report he had significant diarrhea more than 2 weeks ago. This raises the poss ibility of an acute inflammatory demyelinating polyneuropathy possibly [place] syndrome rather than a neuroleptic malignant syndrome. Will pursue an LP. Will consider further EMG or NCV testing. 03/28: He is more conversant today. He is oriented to person and place. He reports having "pins and needles" sensation on both of his hands. He continues to be weak on 4 extremities but his left arm is still very subtly weaker than the right with weaker superintendent warehouse on the left hand. DTRs remain hyporeflexic. No ptosis noted today. LP was pursued which showed elevated CSF protein and normal WBC consistent with albuminocytologic dissociation. 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 Will further discuss new findings with Neurology for possible IVIG therapy. Acetylcholine receptor Antibodies also sent due to a noted ptosis initially which has resolved. Will also check vital capacity and NIF. (3) Encephalopathy acute Is this a current diagnosis for this admission?: Yes Plan: Deemed possibly from his UTI and bacteremia. (4) Neuroleptic malignant syndrome Is this a current diagnosis for this admission?: Yes Plan: Per previous provider who discussed with Dr. Licea, neurologist at [facility], recommended to run dantrolene for a total of 10 days and use low-dose benzodiazepines as needed. Dantrolene was later held as he was getting lethargic. (5) UTI (urinary tract infection) Qualifiers: Urinary tract infection type: acute cystitis Hematuria presence: without hematuria Qualified Code(s): N30.00 - Acute cystitis without hematuria Is this a current diagnosis for this admission?: Yes Plan: Urine culture grew Enterococcus faecalis. ID recommendations noted. Now on Ampicillin. - Time Time Spent with patient: 25-34 minutes
[2019-03-30] MEDS: IMMUNE GLOB GAM CAPRYLATE IV SCH (14:54)
[2019-03-30] MEDS: [UNRECOGNIZED DRUG - OTHER] IV SCH (14:54)
[2019-03-30] MEDS: ATORVASTATIN CALCIUM 80 MG TABLET PO SCH (22:12)
[2019-03-30] MEDS: HEPARIN SOD (PORCINE) 5,000 UNIT/ML 1 ML VIAL SUBCUT SCH (22:12)
[2019-03-31] MEDS: HEPARIN SOD (PORCINE) 5,000 UNIT/ML 1 ML VIAL SUBCUT SCH (06:29)
[2019-03-31 08:16] VITALS: BP 125/76
[2019-04-01 16:36] LABS: ALPHA-1-GLOBULIN 1 8.4 % (1.1-6.6); ALPHA-2-GLOBULIN 5.9 % (3.0-12.6); CSF ALBUMIN 59.8 % (56.8-76.4); PRE ALBUMIN 1.6 % (2.2-7.1); TOTAL PROTEIN CSF PE 110.2 mg/dL (0.0-44.0)
[2019-04-01 17:49] LABS: CSF PE GAMMA GLOBULIN 9.8 % (3.0-13.0); PROT ELEC MSPIKE Not Observed % (Not Observ)
== END 2019-03-31 08:30 | disposition short-term general hospital (02) | DRG 94 ==
LOC: ER 01:55 → EH 08:52 → 4N 13:16 → 3W 03-17 17:45
PROVIDERS: ADMIT Internal Medicine; ATTEND Internal Medicine
PROC: 009U3ZX Drainage of Spinal Canal, Percutaneous Approach, Diagnostic (ICD-10-PCS; principal; 2019-03-28)
PROC: B01BZZZ Fluoroscopy of Spinal Cord (ICD-10-PCS; 2019-03-28)
DX: G61.0 Guillain-Barre syndrome (principal); G21.0 Malignant neuroleptic syndrome; N30.00 Acute cystitis without hematuria; C15.9 Malignant neoplasm of esophagus, unspecified; F11.20 Opioid dependence, uncomplicated; B37.0 Candidal stomatitis; G93.40 Encephalopathy, unspecified; R78.81 Bacteremia; F10.20 Alcohol dependence, uncomplicated; E86.0 Dehydration; Z90.49 Acquired absence of other specified parts of digestive tract; I10 Essential (primary) hypertension; E78.5 Hyperlipidemia, unspecified; J44.9 Chronic obstructive pulmonary disease, unspecified; B95.2 Enterococcus as the cause of diseases classified elsewhere; T43.3X5A Adverse effect of phenothiazine antipsychotics and neuroleptics, initial encounter; T43.595A Adverse effect of other antipsychotics and neuroleptics, initial encounter; K21.9 Gastro-esophageal reflux disease without esophagitis; T42.8X5A Adverse effect of antiparkinsonism drugs and other central muscle-tone depressants, initial encounter; D64.9 Anemia, unspecified; G62.1 Alcoholic polyneuropathy; G89.29 Other chronic pain; Z91.81 History of falling; G65.2 Sequelae of toxic polyneuropathy; Z79.899 Other long term (current) drug therapy; Z92.21 Personal history of antineoplastic chemotherapy; Z86.73 Personal history of transient ischemic attack (TIA), and cerebral infarction without residual deficits; Z87.891 Personal history of nicotine dependence
CPT/HCPCS: 36415; 62270; 70450; 70491; 70551; 71250; 71260; 72125; 72126; 72129; 72132; 74177; 77003; 80048; 80053; 80076; 80202; 81001; 82140; 82550; 82565; 82803; 82945; 82962; 83519; 83605; 83735; 83916; 84100; 84132; 84157; 84166; 84443; 84484; 85025; 85027; 85610; 85730; 86592; 86701; 87040; 87070; 87077; 87086; 87088; 87186; 87205; 87252; 89050; 93005; 93010; 93306; 93880; 96365; 99285; J0290; J0696; J1561; J1644; J2060; J2405; J2543; J3370; J3411; J3475; J3480; J3486; J3490; J7030; J7050; J7060

== ENCOUNTER 2019-04-12 23:29 | Inpatient (IN) | payer MEDICARE, BC ==
[2019-04-13 08:06] LABS: HEMATOCRIT 29.3 % (37.9-51.0); MEAN CORPUSCULAR HEMOGLOBIN 35.1 pg (27.0-33.4); MEAN CORPUSCULAR HGB CONC 34.3 g/dL (32.0-36.0); MEAN CORPUSCULAR VOLUME 102 fl (80-97); PLATELET COUNT 343 10^3/uL (150-450); RED BLOOD COUNT 2.86 10^6/uL (4.35-5.55); RED CELL DISTRIBUTION WIDTH 13.6 % (11.5-14.0); WHITE BLOOD COUNT 8.4 10^3/uL (4.0-10.5)
[2019-04-13 08:20] LABS: ALBUMIN 3.4 g/dL (3.5-5.0); ALKALINE PHOSPHATASE 90 U/L (38-126); ANION GAP 10 (5-19); ASPARTATE AMINO TRANSFERASE 77 U/L (17-59); BILIRUBIN,DIRECT 0.3 mg/dL (0.0-0.4); BLOOD UREA NITROGEN 18 mg/dL (7-20); CALCIUM 9.6 mg/dL (8.4-10.2); CARBON DIOXIDE 22 mmol/L (22-30); CHLORIDE 106 mmol/L (98-107); GLUCOSE 97 mg/dL (75-110); POTASSIUM 3.6 mmol/L (3.6-5.0); TOTAL PROTEIN 7.1 g/dL (6.3-8.2)
[2019-04-13 08:35] LABS: FREE T3 4.3 pg/mL (2.77-5.27); FREE T4 (FREE THYROXINE) 1.83 ng/dL (0.78-2.19)
[2019-04-13] MEDS ORDERED: PREDNISONE 20 MG TABLET PO SCH (10:00)
[2019-04-13] MEDS ORDERED: DULOXETINE HCL 30 MG CAPSULE.DR PO SCH (10:00)
[2019-04-13] MEDS: QUETIAPINE FUMARATE 25 MG TABLET PO ONE ×2 (10:38→11:22)
[2019-04-13] MEDS ORDERED: LORAZEPAM INJ 2 MG/1 ML VIAL IV ONE (11:15)
--- NOTE | 2019-04-13 13:41 | PDOC H&P ---
History of Present Illness Admission Date/PCP: 04/12/19 23:29 History of Present Illness: SIMONA SHIRLEY is a 63 year old male who was transferred to [facility] on 03/30 for a possible AIDP to rule out GBS Patient underwent extensive neurologic work-up at [facility] for almost 2 weeks. See records from [facility] for details. 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 Discussed case with [facility] neurology. [facility] endocrinology has recommended tapered steroid therapy for Jaqui's. Upon encounter, he is not in distress. He is oriented to person and is able to remember me as one of his previous providers here. He says he is in a medical facility but not able to tell me the city or the date. He denies acute complaints. He appears a little restless but is easily redirectable. Past Medical History Cardiac Medical History: Reports: Hyperlipidema, Hypertension Pulmonary Medical History: Reports: Chronic Obstructive Pulmonary Disease (COPD) Neurological Medical History: Denies: Seizures GI Medical History: Reports: Gastroesophageal Reflux Disease Past Surgical History Past Surgical History: Reports: Orthopedic Surgery - L ankle, R hand, R elbow, Other - Esophagectomy with gastric pull through Social History Smoking Status: Unknown if Ever Smoked Frequency of Alcohol Use: None Hx Recreational Drug Use: No Drugs: None Hx Prescription Drug Abuse: No Family History Family History: Other - Lupus Parental Family History Reviewed: Yes - no premature CAD Children Family History Reviewed: No Sibling(s) Family History Reviewed.: No Medication/Allergy Home Medications: Tapentadol Hydrochloride [Nucynta] 50 mg PO Q8HP PRN 03/14/19 Acetaminophen [Tylenol 325 mg Tablet] 650 mg PO Q6HP PRN 04/13/19 Albuterol Sulfate [Albuterol Sulfate Hfa] 2 puff IH Q6HP PRN 04/13/19 Atorvastatin Calcium [Lipitor 40 mg Tablet] 40 mg PO QHS 04/13/19 Docusate Sodium [Colace] 100 mg PO BID 04/13/19 Duloxetine HCl [Cymbalta 30 mg Capsule.dr] 30 mg PO DAILY 04/13/19 Famotidine [Acid Controller] 20 mg PO Q12 04/13/19 Folic Acid 1 mg PO DAILY 04/13/19 Lisinopril [Zestril] 10 mg PO DAILY 04/13/19 Melatonin [Melatonin 3 mg Tablet] 3 mg PO DAILY 04/13/19 Mirtazapine 7.5 mg PO QHS 04/13/19 Multivit,Calc,Mins/Iron/Folic [Thera-M Caplet] 1 tab PO DAILY 04/13/19 Prednisone [Deltasone 20 mg Tablet] 20 mg PO DAILY 04/13/19 Quetiapine Fumarate [Seroquel] 25 mg PO DAILY 04/13/19 Thiamine HCl [Thiamine 100 mg Tablet] 100 mg PO DAILY 04/13/19 Allergies/Adverse Reactions: No Known Allergies Allergy (Unverified 03/13/19 12:04) Review of Systems All systems: reviewed and no additional remarkable complaints except as stated - As mentioned in HPI Physical Exam Vital Signs: Temp Pulse Resp BP Pulse Ox 98.3 F 102 H 16 151/81 H 100 04/13/19 07:14 04/13/19 07:14 04/13/19 07:14 04/13/19 07:14 04/13/19 07:14 Intake & Output 04/12/19 04/13/19 04/14/19 06:59 06:59 06:59 Output Total 300 Balance -300 Weight 136 lb 14.513 oz General appearance: PRESENT: no acute distress, well-developed, well-nourished Head exam: PRESENT: atraumatic, normocephalic Eye exam: PRESENT: conjunctiva pink, EOMI, PERRLA. ABSENT: scleral icterus Ear exam: PRESENT: normal external ear exam Mouth exam: PRESENT: moist, tongue midline Neck exam: ABSENT: carotid bruit, JVD, lymphadenopathy, thyromegaly Respiratory exam: PRESENT: clear to auscultation kevin. ABSENT: rales, rhonchi, wheezes Cardiovascular exam: PRESENT: RRR. ABSENT: diastolic murmur, rubs, systolic murmur Pulses: PRESENT: normal dorsalis pedis pul GI/Abdominal exam: PRESENT: normal bowel sounds, soft. ABSENT: distended, guarding, mass, organolmegaly, rebound, tenderness Rectal exam: PRESENT: deferred Neurological exam: PRESENT: alert, awake, oriented to person Results Laboratory Results: 04/13/19 07:54 04/13/19 07:54 04/13/19 04/13/19 04/13/19 07:54 07:54 07:54 WBC 8.4 RBC 2.86 L Hgb 10.0 L Hct 29.3 L MCV 102 H MCH 35.1 H MCHC 34.3 RDW 13.6 Plt Count 343 Sodium 137.8 Potassium 3.6 Chloride 106 Carbon Dioxide 22 Anion Gap 10 BUN 18 Creatinine 0.50 L Est GFR ( Amer) > 60 Glucose 97 Calcium 9.6 Total Bilirubin 1.0 AST 77 H Alkaline Phosphatase 90 Total Protein 7.1 Albumin 3.4 L Free T4 1.83 Free T3 pg/mL 4.30 Assessment and Plan - Diagnosis (1) Jaqui's encephalopathy Is this a current diagnosis for this admission?: Yes Plan: Will restart prednisone today as recommended by [facility] neurology and endocrinology. Anticipate SNF/rehab placement as recommended as well by both subspecialties. (2) UTI (urinary tract infection) Qualifiers: Urinary tract infection type: acute cystitis Hematuria presence: without hematuria Qualified Code(s): N30.00 - Acute cystitis without hematuria Is this a current diagnosis for this admission?: Yes Plan: Resolved and completed antibiotics. - Time Time Spent with patient: 25-34 minutes
[2019-04-13] MEDS ORDERED: PREDNISONE 20 MG TABLET PO ONE (15:45)
[2019-04-13] MEDS: FOLIC ACID 1 MG TABLET PO SCH (16:17)
[2019-04-13] MEDS: MULTIVITAMIN TABLET PO SCH (16:17)
[2019-04-13] MEDS: THIAMINE HCL 100 MG TABLET PO SCH (16:18)
[2019-04-13] MEDS: LISINOPRIL 10 MG TABLET PO SCH (16:18)
[2019-04-13] MEDS: ATORVASTATIN CALCIUM 40 MG TABLET PO SCH (22:11)
[2019-04-13] MEDS: MELATONIN 3 MG TABLET PO SCH (22:11)
[2019-04-13] MEDS: FAMOTIDINE 20 MG TABLET PO SCH (22:11)
[2019-04-14 04:17] LABS: APPEARANCE,URINE SLIGHTLY-CLOUDY; BILIRUBIN,URINE NEGATIVE (NEGATIVE); COLOR,URINE YELLOW; GLUCOSE, URINE NEGATIVE (NEGATIVE); KETONES,URINE TRACE mg/dL (NEGATIVE); LEUKOCYTE ESTERASE,URINE SMALL (NEGATIVE); NITRITE,URINE NEGATIVE (NEGATIVE); PROTEIN,URINE NEGATIVE (NEGATIVE); URINE SPECIFIC GRAVITY 1.018; UROBILINOGEN,URINE NEGATIVE mg/dL (<2.0)
[2019-04-14] MEDS ORDERED: INFLUENZA QUAD (6MOS+) 2019-20 VAC 0.5 ML SYR IM ONE (08:00)
[2019-04-14] MEDS: FAMOTIDINE 20 MG TABLET PO SCH ×2 (10:11→21:10)
[2019-04-14] MEDS: FOLIC ACID 1 MG TABLET PO SCH (10:11)
[2019-04-14] MEDS: LISINOPRIL 10 MG TABLET PO SCH (10:11)
[2019-04-14] MEDS: THIAMINE HCL 100 MG TABLET PO SCH (10:11)
[2019-04-14] MEDS: MULTIVITAMIN TABLET PO SCH (10:11)
[2019-04-14] MEDS: PREDNISONE 20 MG TABLET PO SCH (10:12)
[2019-04-14] MEDS: QUETIAPINE FUMARATE 25 MG TABLET PO SCH (10:16)
--- NOTE | 2019-04-14 13:38 | PDOC PROGRESS REPORT ---
Subjective Progress Note for:: 04/14/19 Subjective:: No acute event overnight. His restlessness has much improved to Seroquel which he was discharged on from [facility]. He denies acute complaint. He continues to have intermittent acid otic movements. He does continue to require significant assistance. He is oriented to person and place. Elly, sister/DPOA is at bedside. We rediscussed in the length all the extensive work- up that he had at [facility] including his diagnoses and medical issues. He continues to have very poor oral intake. [facility] has recommended possible J tube placement as G-tube was not deemed very feasible due to this is esophageal pull-through. We discussed this in length as well with Elly and Blayne. He expressed that he does not want to have any form of artificial feeding and does not want to get a feeding tube. We rediscussed his CODE STATUS as well. Elly and Blayne verbalized that he wants to remain DNR/DNI does not want to receive chest compressions, defibrillation or mechanical ventilation if the need arises. He likely needs SNF and possibly long-term care placement. Elly brought up that Blayne has previously mentioned about going to [place] to pursue euthanasia as he mentioned he recognizes he has a very poor quality of life. We discussed possibly transitioning him to hospice and patient and Elly are amenable to this. Reason For Visit: HASIMOTO'S ENCEPHALOPATHY Physical Exam Vital Signs: Temp Pulse Resp BP Pulse Ox 98.3 F 110 H 17 105/67 100 04/14/19 11:07 04/14/19 11:07 04/14/19 11:07 04/14/19 11:07 04/14/19 11:07 Intake & Output 04/13/19 04/14/19 04/15/19 06:59 06:59 06:59 Intake Total 100 240 Output Total 300 0 Balance -300 100 240 Weight 136 lb 14.513 oz 137 lb 12.623 oz General appearance: PRESENT: no acute distress, well-developed, well-nourished Head exam: PRESENT: atraumatic, normocephalic Eye exam: PRESENT: conjunctiva pink, EOMI, PERRLA. ABSENT: scleral icterus Ear exam: PRESENT: normal external ear exam Mouth exam: PRESENT: moist, tongue midline Neck exam: ABSENT: carotid bruit, JVD, lymphadenopathy, thyromegaly Respiratory exam: PRESENT: clear to auscultation kevin. ABSENT: rales, rhonchi, wheezes Cardiovascular exam: PRESENT: RRR. ABSENT: diastolic murmur, rubs, systolic murmur Pulses: PRESENT: normal dorsalis pedis pul GI/Abdominal exam: PRESENT: normal bowel sounds, soft. ABSENT: distended, guarding, mass, organolmegaly, rebound, tenderness Rectal exam: PRESENT: deferred Neurological exam: PRESENT: alert, awake, oriented to person, oriented to place Results Laboratory Results: 04/13/19 07:54 04/13/19 07:54 04/14/19 03:40 Urine Color YELLOW Urine Appearance SLIGHTLY-CLOUDY Urine pH 6.0 Ur Specific [place] 1.018 Urine Protein NEGATIVE Urine Glucose (UA) NEGATIVE Urine Ketones TRACE H Urine Blood NEGATIVE Urine Nitrite NEGATIVE Ur Leukocyte Esterase SMALL H Urine WBC (Auto) 41 Urine RBC (Auto) 2 Assessment and Plan - Diagnosis (1) Jaqui's encephalopathy Is this a current diagnosis for this admission?: Yes Plan: 04/13: Will restart prednisone today as recommended by [facility] neurology and endocrinology. Anticipate SNF placement as recommended as well by both subspecialties. 04/14: Possible hospice placement. (2) UTI (urinary tract infection) Qualifiers: Urinary tract infection type: acute cystitis Hematuria presence: without hematuria Qualified Code(s): N30.00 - Acute cystitis without hematuria Is this a current diagnosis for this admission?: Yes Plan: Resolved and completed antibiotics. (3) Wernicke encephalopathy syndrome Is this a current diagnosis for this admission?: Yes - Time Time Spent with patient: 25-34 minutes
--- NOTE | 2019-04-14 13:38 | ADVANCED CARE ---
- Diagnosis (1) Jaqui's encephalopathy Diagnosis Current: Yes (2) UTI (urinary tract infection) Diagnosis Current: Yes (3) Wernicke encephalopathy syndrome Diagnosis Current: Yes Resuscitation Status: Do Not Resuscitate Discussion: We rediscussed his CODE STATUS as well. Elly and Blayne verbalized that he wants to remain DNR/DNI and does not want to receive chest compressions, defibrillation or mechanical ventilation if the need arises. He likely needs SNF and possibly long-term care placement. Elly brought up that Blayne has previously mentioned about going to [place] to pursue euthanasia as he mentioned he recognizes he has a very poor quality of life. We discussed possibly transitioning him to hospice and patient and Elly are amenable to this.
[2019-04-14] MEDS: ATORVASTATIN CALCIUM 40 MG TABLET PO SCH (21:10)
[2019-04-14] MEDS: MELATONIN 3 MG TABLET PO SCH (21:10)
[2019-04-15] MEDS: FOLIC ACID 1 MG TABLET PO SCH (10:32)
[2019-04-15] MEDS: PREDNISONE 20 MG TABLET PO SCH (10:32)
[2019-04-15] MEDS: MULTIVITAMIN TABLET PO SCH (10:32)
[2019-04-15] MEDS: LISINOPRIL 10 MG TABLET PO SCH (10:32)
[2019-04-15] MEDS: THIAMINE HCL 100 MG TABLET PO SCH (10:32)
[2019-04-15] MEDS: FAMOTIDINE 20 MG TABLET PO SCH ×2 (10:32→22:19)
[2019-04-15] MEDS: QUETIAPINE FUMARATE 25 MG TABLET PO SCH (10:51)
--- NOTE | 2019-04-15 11:25 | PDOC PROGRESS REPORT ---
Subjective Progress Note for:: 04/15/19 Subjective:: 04/14: No acute event overnight. His restlessness has much improved to Seroquel which he was discharged on from [facility]. He denies acute complaint. He continues to have intermittent acid otic movements. He does continue to require significant assistance. He is oriented to person and place. Elly, sister/DPOA is at bedside. We rediscussed in the length all the extensive work- up that he had at [facility] including his diagnoses and medical issues. He continues to have very poor oral intake. [facility] has recommended possible J tube placement as G-tube was not deemed very feasible due to this is esophageal pull-through. We discussed this in length as well with Elly and Blayne. He expressed that he does not want to have any form of artificial feeding and does not want to get a feeding tube. We rediscussed his CODE STATUS as well. Elly and Blayne verbalized that he wants to remain DNR/DNI does not want to receive chest compressions, defibrillation or mechanical ventilation if the need arises. He likely needs SNF and possibly long-term care placement. Elly brought up that Blayne has previously mentioned about going to [place] to pursue euthanasia as he mentioned he recognizes he has a very poor quality of life. We discussed possibly transitioning him to hospice and patient and Elly are amenable to this. 04/15: No acute event overnight. No agitation. He has been pleasant this morning. He denies acute complaints. Elly has requested placement in a facility close to [place]. Initiated placement process. Reason For Visit: HASIMOTO'S ENCEPHALOPATHY Physical Exam Vital Signs: Temp Pulse Resp BP Pulse Ox 97.6 F 99 20 149/93 H 100 04/15/19 07:40 04/15/19 07:40 04/15/19 03:37 04/15/19 07:40 04/15/19 07:40 Intake & Output 04/14/19 04/15/19 04/16/19 06:59 06:59 06:59 Intake Total 100 360 Output Total 0 0 Balance 100 360 Weight 137 lb 12.623 oz 134 lb 0.657 oz General appearance: PRESENT: no acute distress, well-developed, well-nourished Head exam: PRESENT: atraumatic, normocephalic Eye exam: PRESENT: conjunctiva pink, EOMI, PERRLA. ABSENT: scleral icterus Ear exam: PRESENT: normal external ear exam Mouth exam: PRESENT: moist, tongue midline Neck exam: ABSENT: carotid bruit, JVD, lymphadenopathy, thyromegaly Respiratory exam: PRESENT: clear to auscultation kevin. ABSENT: rales, rhonchi, wheezes Cardiovascular exam: PRESENT: RRR. ABSENT: diastolic murmur, rubs, systolic murmur Pulses: PRESENT: normal dorsalis pedis pul GI/Abdominal exam: PRESENT: normal bowel sounds, soft. ABSENT: distended, guarding, mass, organolmegaly, rebound, tenderness Rectal exam: PRESENT: deferred Extremities exam: PRESENT: full ROM. ABSENT: calf tenderness, clubbing, pedal edema Neurological exam: PRESENT: alert, awake, oriented to person, oriented to place Results Laboratory Results: 04/13/19 07:54 04/13/19 07:54 Assessment and Plan - Diagnosis (1) Acute encephalopathy Is this a current diagnosis for this admission?: Yes Plan: Improved. (2) Jaqui's encephalopathy Is this a current diagnosis for this admission?: Yes Plan: 04/13: Will restart prednisone today as recommended by [facility] neurology and endocrinology. Anticipate SNF placement as recommended as well by both subspecialties. 04/14: Possible hospice placement. 04/15: [facility] neurology and endocrinology services have recommended tapered steroids over 3 months. (3) Wernicke encephalopathy syndrome Is this a current diagnosis for this admission?: Yes (4) UTI (urinary tract infection) Qualifiers: Urinary tract infection type: acute cystitis Hematuria presence: without hematuria Qualified Code(s): N30.00 - Acute cystitis without hematuria Is this a current diagnosis for this admission?: Yes (5) Malnutrition Is this a current diagnosis for this admission?: Yes Plan: He does have muscle wasting and continue to have poor oral intake. Appreciate dietitian recommendations. J tube deferred as mentioned above. - Time Time Spent with patient: 15-24 minutes
[2019-04-15] MEDS: MELATONIN 3 MG TABLET PO SCH (22:19)
[2019-04-15] MEDS: ATORVASTATIN CALCIUM 40 MG TABLET PO SCH (22:19)
[2019-04-16] MEDS: LISINOPRIL 10 MG TABLET PO SCH (10:42)
[2019-04-16] MEDS: FOLIC ACID 1 MG TABLET PO SCH (10:42)
[2019-04-16] MEDS: FAMOTIDINE 20 MG TABLET PO SCH ×2 (10:42→21:33)
[2019-04-16] MEDS: MULTIVITAMIN TABLET PO SCH (10:43)
[2019-04-16] MEDS: THIAMINE HCL 100 MG TABLET PO SCH (10:43)
[2019-04-16] MEDS: PREDNISONE 20 MG TABLET PO SCH (10:43)
[2019-04-16] MEDS: QUETIAPINE FUMARATE 25 MG TABLET PO SCH (10:44)
--- NOTE | 2019-04-16 14:01 | PDOC PROGRESS REPORT ---
Subjective Progress Note for:: 04/16/19 Subjective:: The patient awakens easily. He does attempt to verbalize but it is difficult to comprehend. He was able to answer simple questions with a yes and no answer such as "are you having pain ". Reason For Visit: HASIMOTO'S ENCEPHALOPATHY Physical Exam Vital Signs: Temp Pulse Resp BP Pulse Ox 97.5 F 106 H 16 121/92 H 96 04/16/19 12:00 04/16/19 12:00 04/16/19 12:00 04/16/19 12:00 04/16/19 12:00 Intake & Output 04/15/19 04/16/19 04/17/19 06:59 06:59 06:59 Intake Total 360 240 50 Output Total 0 Balance 360 240 50 Weight 60.8 kg 60.9 kg 60.9 kg General appearance: PRESENT: no acute distress, cooperative, thin, well- developed Head exam: PRESENT: atraumatic, normocephalic Respiratory exam: PRESENT: clear to auscultation kevin, symmetrical, unlabored. ABSENT: accessory muscle use, rales, rhonchi, tachypnea, wheezes Cardiovascular exam: PRESENT: RRR, +S1, +S2 GI/Abdominal exam: PRESENT: normal bowel sounds, soft. ABSENT: distended, tenderness Rectal exam: PRESENT: deferred Extremities exam: ABSENT: joint swelling, pedal edema, tenderness Musculoskeletal exam: PRESENT: normal inspection Neurological exam: PRESENT: alert, awake, oriented to person - He does respond to his name. ABSENT: oriented to place - Unable to fully assess Psychiatric exam: PRESENT: flat affect. ABSENT: agitated, anxious Results Laboratory Results: 04/13/19 07:54 04/13/19 07:54 Assessment and Plan - Diagnosis (1) Acute encephalopathy Is this a current diagnosis for this admission?: Yes Plan: Improved. 04/16/2019-the patient has been sleeping all morning. He did awaken with verbal prodding. The sitter reports that he has been calm and showed no signs of agitation today. Encephalopathy is improving as noted above. (2) Jaqui's encephalopathy Is this a current diagnosis for this admission?: Yes Plan: 04/13: Will restart prednisone today as recommended by [facility] neurology and endocrinology. Anticipate SNF placement as recommended as well by both subspecialties. 04/14: Possible hospice placement. 04/15: [facility] neurology and endocrinology services have recommended tapered steroids over 3 months. 04/16/2019-the patient is currently on 40 mg a day. A slow taper would be 5 mg decrements weekly. This would last approximately 8 weeks. I will initiate this taper at the end of this week. (3) Wernicke encephalopathy syndrome Is this a current diagnosis for this admission?: Yes Plan: 04/16/2019-no specific treatment. Continue the folic acid and thiamine. (4) UTI (urinary tract infection) Qualifiers: Urinary tract infection type: acute cystitis Hematuria presence: without hematuria Qualified Code(s): N30.00 - Acute cystitis without hematuria Is this a current diagnosis for this admission?: Yes Plan: Resolved and completed antibiotics. (5) Malnutrition Qualifiers: Malnutrition type: protein-calorie malnutrition Protein-calorie malnutrition severity: moderate Qualified Code(s): E44.0 - Moderate protein- calorie malnutrition Is this a current diagnosis for this admission?: Yes Plan: He does have muscle wasting and continue to have poor oral intake. Appreciate dietitian recommendations. J tube deferred as mentioned above. [id number]-records indicate the patient has very poor appetite. He has quite weekend. We will continue to try and encourage oral intake. - Plan Summary Summary: [id number] [phone]-palliative care did see the patient today. They recommended hospice care. They feel home hospice or hospice at a facility would be best. They do not feel he qualifies for inpatient hospice at this time. I did discuss the case with discharge planning. Evidently the patient's sister, who has power over his legal and monetary affairs, refuses to utilize the patient's income for the patient's benefit. She refuses to pay for services at a facility or private duty help at home. I believe case management has filed a grievance with Adult Protective Services. - Time Time Spent with patient: Less than 15 minutes Medications reviewed and adjusted accordingly: Yes
[2019-04-16] MEDS: MELATONIN 3 MG TABLET PO SCH (21:33)
[2019-04-16] MEDS: ATORVASTATIN CALCIUM 40 MG TABLET PO SCH (21:33)
[2019-04-16] MEDS ORDERED: NALBUPHINE HCL INJ 10 MG/1 ML AMPULE ONE (23:53)
[2019-04-17] MEDS ORDERED: NALBUPHINE HCL INJ 10 MG/1 ML AMPULE IV PRN (00:08)
[2019-04-17] MEDS: FOLIC ACID 1 MG TABLET PO SCH (09:38)
[2019-04-17] MEDS: LISINOPRIL 10 MG TABLET PO SCH (09:38)
[2019-04-17] MEDS: THIAMINE HCL 100 MG TABLET PO SCH (09:38)
[2019-04-17] MEDS: FAMOTIDINE 20 MG TABLET PO SCH (09:38)
[2019-04-17] MEDS: MULTIVITAMIN TABLET PO SCH (09:38)
[2019-04-17] MEDS: QUETIAPINE FUMARATE 25 MG TABLET PO SCH (09:38)
[2019-04-17] MEDS: PREDNISONE 20 MG TABLET PO SCH (09:38)
--- NOTE | 2019-04-17 15:23 | PDOC PROGRESS REPORT ---
Subjective Progress Note for:: 04/17/19 Subjective:: Patient is actually more alert today. He has significant dysarthria but he he is attempting to communicate. He does not appear to be in any distress or have any new complaints. He did report that his appetite was okay however nursing states his intake is minimal. Reason For Visit: HASIMOTO'S ENCEPHALOPATHY Physical Exam Vital Signs: Temp Pulse Resp BP Pulse Ox 97.3 F 92 17 155/95 H 100 04/17/19 07:42 04/17/19 07:42 04/17/19 07:42 04/17/19 07:42 04/17/19 07:42 Intake & Output 04/16/19 04/17/19 04/18/19 06:59 06:59 06:59 Intake Total 240 150 0 Balance 240 150 0 Weight 60.9 kg 59.2 kg General appearance: PRESENT: no acute distress, cooperative, thin, well- developed Head exam: PRESENT: atraumatic, normocephalic Mouth exam: PRESENT: other - Extremely chapped lips Respiratory exam: PRESENT: clear to auscultation kevin, symmetrical, unlabored. ABSENT: accessory muscle use, rales, rhonchi, tachypnea, wheezes Cardiovascular exam: PRESENT: RRR, +S1, +S2 GI/Abdominal exam: PRESENT: diminished bowel sounds, soft, other - Scaphoid abdomen. ABSENT: distended, tenderness Rectal exam: PRESENT: deferred Musculoskeletal exam: PRESENT: other - Decreased muscle mass Neurological exam: PRESENT: alert, awake, oriented to person - Responds to questions. Psychiatric exam: PRESENT: unusual affect. ABSENT: agitated, anxious Results Laboratory Results: 04/13/19 07:54 04/13/19 07:54 Assessment and Plan - Diagnosis (1) Acute encephalopathy Is this a current diagnosis for this admission?: Yes Plan: Improved. 04/16/2019-the patient has been sleeping all morning. He did awaken with verbal prodding. The sitter reports that he has been calm and showed no signs of ag itation today. Encephalopathy is improving as noted above. 04/17/2019-the patient in fact was awake and alert today. He interacted but because of dysarthria it was somewhat difficult to comprehend. He seemed to understand my questions and attempted to make appropriate answers. (2) Jaqui's encephalopathy Is this a current diagnosis for this admission?: Yes Plan: 04/13: Will restart prednisone today as recommended by [facility] neurology and endocrinology. Anticipate SNF placement as recommended as well by both subspecialties. 04/14: Possible hospice placement. 04/15: [facility] neurology and endocrinology services have recommended tapered steroids over 3 months. 04/16/2019-the patient is currently on 40 mg a day. A slow taper would be 5 mg decrements weekly. This would last approximately 8 weeks. I will initiate this taper at the end of this week. 04/17/2019-currently on a prednisone taper as noted above. (3) Wernicke encephalopathy syndrome Is this a current diagnosis for this admission?: Yes Plan: 04/16/2019-no specific treatment. Continue the folic acid and thiamine. 04/17/2019-the patient remains on folic acid and thiamine (4) UTI (urinary tract infection) Qualifiers: Urinary tract infection type: acute cystitis Hematuria presence: without hematuria Qualified Code(s): N30.00 - Acute cystitis without hematuria Is this a current diagnosis for this admission?: Yes Plan: Resolved and completed antibiotics. (5) Malnutrition Qualifiers: Malnutrition type: protein-calorie malnutrition Protein-calorie malnutrition severity: moderate Qualified Code(s): E44.0 - Moderate protein-calorie malnutrition Is this a current diagnosis for this admission?: Yes Plan: He does have muscle wasting and continue to have poor oral intake. Appreciate dietitian recommendations. J tube deferred as mentioned above. 04/16/2019-records indicate the patient has very poor appetite. He has quite weekend. We will continue to try and encourage oral intake. 04/17/2019-despite telling me his appetite is "so so "the nurse reports that his appetite is been quite poor and his intake is minimal. - Plan Summary Summary: [id number] [phone]-palliative care did see the patient today. They recommended hospice care. They feel home hospice or hospice at a facility would be best. They do not feel he qualifies for inpatient hospice at this time. I did discuss the case with discharge planning. Evidently the patient's sister, who has power over his legal and monetary affairs, refuses to utilize the patient's income for the patient's benefit. She refuses to pay for services at a facility or private duty help at home. I believe case management has filed a grievance with Adult Protective Services. - Time Time Spent with patient: Less than 15 minutes Medications reviewed and adjusted accordingly: Yes Anticipated discharge: Hospice
[2019-04-17] MEDS ORDERED: MORPHINE SULFATE 10 MG/ML INJ IV PRN ×2 (17:59→22:10)
[2019-04-17] MEDS ORDERED: ACETAMINOPHEN 650 MG SUPP.RECT PR PRN (22:12)
[2019-04-17] MEDS ORDERED: ACETAMINOPHEN 325 MG TABLET PO PRN (22:12)
[2019-04-17] MEDS ORDERED: PROMETHAZINE HCL INJ 25 MG/1 ML VIAL IV PRN (22:13)
[2019-04-17] MEDS ORDERED: HALOPERIDOL LACTATE INJ 5 MG/1 ML VIAL IV PRN (22:14)
--- NOTE | 2019-04-17 22:22 | Progress Note ---
Provider Note Provider Note: Earlier this evening I was called by the patient's nurse. The patient's sister was at the bedside, which I understand is a rare event. The sister was telling the nurse that she was fine with changing him to comfort care only. The home health care case manager has filed a complaint with APS regarding the sister's behavior especia lly concerning the patient's financial affairs. Regardless, comfort care is an appropriate disposition for the patient and the orders have been instituted.
--- NOTE | 2019-04-17 22:48 | Progress Note ---
Provider Note Provider Note: After review of the patient's chart and discussion with patient's envelope machine adjuster I concur that a comfort measures only, DO NOT RESUSCITATE, DO NOT INTUBATE resuscitation status is appropriate for this patient.
[2019-04-18] MEDS: LORAZEPAM INJ 2 MG/1 ML VIAL IV PRN (02:32)
[2019-04-18] MEDS: MORPHINE SULFATE 10 MG/ML INJ IV PRN ×3 (14:08→22:54)
--- NOTE | 2019-04-18 18:42 | PDOC PROGRESS REPORT ---
Subjective Progress Note for:: 04/18/19 Subjective:: SIMONA SHIRLEY is a 63 year old male who was transferred to [facility] on 03/30 for a possible AIDP to rule out GBS Patient underwent extensive neurologic work-up at [facility] for almost 2 weeks. See records from [facility] for details. 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 Discussed case with [facility] neurology. [facility] endocrinology has recommended tapered steroid therapy for Jaqui's. 04/18/2019. No acute events overnight. 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 Patient in no apparent distress, unfortunately nonverbal, follows some commands, awake. Reason For Visit: HASIMOTO'S ENCEPHALOPATHY Physical Exam Vital Signs: Temp Pulse Resp BP Pulse Ox 97.4 F 56 L 12 139/94 H 100 04/18/19 07:55 04/18/19 07:55 04/18/19 18:10 04/18/19 08:00 04/18/19 07:55 Intake & Output 04/17/19 04/18/19 04/19/19 06:59 06:59 06:59 Intake Total 150 360 0 Output Total 0 Balance 150 360 0 Weight 59.2 kg 59.1 kg General appearance: PRESENT: no acute distress, well-developed, well-nourished Respiratory exam: PRESENT: clear to auscultation kevin. ABSENT: rales, rhonchi, wheezes Cardiovascular exam: PRESENT: RRR. ABSENT: diastolic murmur, rubs, systolic mur mur GI/Abdominal exam: PRESENT: normal bowel sounds, soft. ABSENT: distended, guarding, mass, organolmegaly, rebound, tenderness Neurological exam: PRESENT: alert Results Laboratory Results: 04/13/19 07:54 04/13/19 07:54 Assessment and Plan - Diagnosis (1) Comfort measures only status Is this a current diagnosis for this admission?: Yes Plan: Assumed care today. 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 (3) Malnutrition Qualifiers: Malnutrition type: protein-calorie malnutrition Protein-calorie malnutrition severity: moderate Qualified Code(s): E44.0 - Moderate protein- calorie malnutrition Is this a current diagnosis for this admission?: Yes Plan: Unfortunate patient has very poor p.o. 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 - Plan Summary Summary: [phone]-palliative care did see the patient today. They recommended hospice car e. They feel home hospice or hospice at a facility would be best. They do not feel he qualifies for inpatient hospice at this time. I did discuss the case with discharge planning. Evidently the patient's sister, who has power over his legal and monetary affairs, refuses to utilize the patient's income for the patient's benefit. She refuses to pay for services at a facility or private duty help at home. I believe case management has filed a grievance with Adult Protective Services.
[2019-04-19] MEDS: LORAZEPAM INJ 2 MG/1 ML VIAL IV PRN ×2 (09:00→16:53)
[2019-04-19 12:49] VITALS: BP 84/62
--- NOTE | 2019-04-19 15:15 | PDOC PROGRESS REPORT ---
Subjective Progress Note for:: 04/19/19 Subjective:: SIMONA SHIRLEY is a 63 year old male who was transferred to [facility] on 03/30 for a possible AIDP to rule out GBS Patient underwent extensive neurologic work-up at [facility] for almost 2 weeks. See records from [facility] for details. 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 Discussed case with [facility] neurology. [facility] endocrinology has recommended tapered steroid therapy for Jaqui's. 04/18/2019. No acute events overnight. 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 Patient in no apparent distress, unfortunately nonverbal, follows some commands, awake. 04/19/2019. No acute events overnight. Patient is awake however does not communicate much, when asked if he is in pain he says no by shaking his head, when asked if he is comfortable he says he has by shaking his head. He can only tell me his name, follows some, has very low appetite, yesterday he did eat some. He does not communicate much with me however he had mentioned to the STUDENT SERVICES COUNSELOR that he did not want to continue. Reason For Visit: HASIMOTO'S ENCEPHALOPATHY Physical Exam Vital Signs: Temp Pulse Resp BP Pulse Ox 97.2 F 111 H 17 84/62 L 100 04/19/19 10:59 04/19/19 10:59 04/19/19 10:59 04/19/19 10:59 04/19/19 10:59 Intake & Output 04/18/19 04/19/19 04/20/19 06:59 06:59 06:59 Intake Total 360 0 120 Output Total 0 Balance 360 0 120 Weight 59.1 kg 57.7 kg General appearance: PRESENT: no acute distress, well-developed, well-nourished Head exam: PRESENT: atraumatic, normocephalic Respiratory exam: PRESENT: clear to auscultation kevin. ABSENT: rales, rhonchi, wheezes Cardiovascular exam: PRESENT: RRR. ABSENT: diastolic murmur, rubs, systolic murmur Extremities exam: PRESENT: full ROM. ABSENT: calf tenderness, clubbing, pedal edema Neurological exam: PRESENT: awake Results Laboratory Results: 04/13/19 07:54 04/13/19 07:54 Assessment and Plan - Diagnosis (1) Comfort measures only status Is this a current diagnosis for this admission?: Yes Plan: Assumed care 04/18/2019. LUBRICATION EQUIPMENT SERVICER status as of 04/17/2019. Pending transfer to inpatient hospice. 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 (3) Malnutrition Qualifiers: Malnutrition type: protein-calorie malnutrition Protein-calorie malnutrition severity: moderate Qualified Code(s): E44.0 - Moderate protein- calorie malnutrition Is this a current diagnosis for this admission?: Yes Plan: Unfortunately patient has very poor p.o. 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 - Plan Summary Summary: [id number]-palliative care did see the patient today. They recommended hospice ca re. They feel home hospice or hospice at a facility would be best. They do not feel he qualifies for inpatient hospice at this time. I did discuss the case with discharge planning. Evidently the patient's sister, who has power over his legal and monetary affairs, refuses to utilize the patient's income for the patient's benefit. She refuses to pay for services at a facility or private duty help at home. I believe case management has filed a grievance with Adult Protective Services.
--- NOTE | 2019-04-19 16:43 | PDOC TRANSFER SUMMARY ---
General Admission Date/PCP: 04/12/19 23:29 Resuscitation Status: Do Not Resuscitate - Transfer Diagnosis (1) Comfort measures only status Is this a current diagnosis for this admission?: Yes (2) Jaqui's encephalopathy Is this a current diagnosis for this admission?: Yes (3) Malnutrition Is this a current diagnosis for this admission?: Yes - Transfer Medications Home Medications: Tapentadol Hydrochloride [Nucynta] 50 mg PO Q8HP PRN 03/14/19 Acetaminophen [Tylenol 325 mg Tablet] 650 mg PO Q6HP PRN 04/13/19 Albuterol Sulfate [Albuterol Sulfate Hfa] 2 puff IH Q6HP PRN 04/13/19 Atorvastatin Calcium [Lipitor 40 mg Tablet] 40 mg PO QHS 04/13/19 Docusate Sodium [Colace] 100 mg PO BID 04/13/19 Duloxetine HCl [Cymbalta 30 mg Capsule.dr] 30 mg PO DAILY 04/13/19 Famotidine [Acid Controller] 20 mg PO Q12 04/13/19 Folic Acid 1 mg PO DAILY 04/13/19 Lisinopril [Zestril] 10 mg PO DAILY 04/13/19 Melatonin [Melatonin 3 mg Tablet] 3 mg PO DAILY 04/13/19 Mirtazapine 7.5 mg PO QHS 04/13/19 Multivit,Calc,Mins/Iron/Folic [Thera-M Caplet] 1 tab PO DAILY 04/13/19 Prednisone [Deltasone 20 mg Tablet] 20 mg PO DAILY 04/13/19 Quetiapine Fumarate [Seroquel] 25 mg PO DAILY 04/13/19 Thiamine HCl [Thiamine 100 mg Tablet] 100 mg PO DAILY 04/13/19 Transfer Medications: Current Medications Acetaminophen (Tylenol 325 Mg Tablet) 650 mg PO Q4HP PRN PRN Reason: FOR PAIN OR TEMP Stop: 05/17/19 22:11 Acetaminophen (Tylenol 650 Mg Supp) 650 mg MI Q4HP PRN PRN Reason: FOR PAIN OR TEMP Stop: 05/17/19 22:11 Haloperidol Lactate (Haldol 5 Mg/Ml Inj 1 Ml Vial) 5 mg IV Q4HP PRN PRN Reason: RESTLESSNESS/AGITATION Stop: 05/17/19 22:13 Lorazepam (Ativan Inj 2 Mg/1 Ml Vial) 2 mg IV Q2HP PRN PRN Reason: ANXIETY/AGITATION Stop: 04/24/19 22:10 Last Admin: 04/19/19 09:00 Dose: 2 mg Documented by: Morphine Sulfate (Morphine 10 Mg/Ml Inj) 10 mg IV Q4HP PRN PRN Reason: FOR PAIN Stop: 04/24/19 22:09 Last Admin: 04/19/19 04:29 Dose: 10 mg Documented by: Morphine Sulfate (Morphine 10 Mg/Ml Inj) 5 mg IV Q4HP PRN PRN Reason: PAIN Stop: 04/24/19 17:58 Last Admin: 04/18/19 22:54 Dose: 5 mg Documented by: Promethazine HCl (Phenergan Inj 25 Mg/1 Ml Vial) 25 mg IV Q4HP PRN PRN Reason: UNRESOLVED NAUSEA/VOMITING Stop: 05/17/19 22:12 - Allergies Allergies/Adverse Reactions: No Known Allergies Allergy (Unverified 03/13/19 12:04) Hospital Course Hospital Course: SIMONA SHIRLEY is a 63 year old male who was transferred to [facility] on 03/30 for a possible AIDP to rule out GBS Patient underwent extensive neurologic work-up at [facility] for almost 2 weeks. See records from [facility] for details. 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 Discussed case with [facility] neurology. [facility] tapered steroid therapy for Jaqui's. (1) Comfort measures only status PARK WARDEN status as of 04/17/2019 as per POA request. Patient appears comfortable has been using minimal amount of benzodiazepines and opiates. (2) Jaqui's encephalopathy And previous admission patient was diagnosed with GBS and was transferred to [facility] under neurology Endocrinology care and was diagnosed with Jaqui's encephalopathy. Readmitted on 01/10/2019 and was restarted on prednisone as recommended by [facility] neurology and endocrinology plan was SNF placement as recommended as well by both subspecialties however patient is PARK WARDEN as of 04/17/2019. (3) Malnutrition Unfortunately patient has very poor p.o. 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 Physical Exam Vital Signs: Temp Pulse Resp BP Pulse Ox 97.2 F 111 H 17 84/62 L 100 04/19/19 10:59 04/19/19 10:59 04/19/19 10:59 04/19/19 10:59 04/19/19 10:59 Intake & Output 04/18/19 04/19/19 04/20/19 06:59 06:59 06:59 Intake Total 360 0 120 Output Total 0 Balance 360 0 120 Weight 59.1 kg 57.7 kg General appearance: PRESENT: no acute distress, thin Respiratory exam: PRESENT: clear to auscultation kevin. ABSENT: rales, rhonchi, wheezes Cardiovascular exam: PRESENT: RRR. ABSENT: diastolic murmur, rubs, systolic murmur Pulses: PRESENT: normal dorsalis pedis pul GI/Abdominal exam: PRESENT: normal bowel sounds, soft. ABSENT: distended, guarding, mass, organolmegaly, rebound, tenderness Neurological exam: PRESENT: awake, other - does not follow command. Results Laboratory Results: 04/13/19 07:54 04/13/19 07:54
== END 2019-04-19 17:22 | disposition short-term general hospital (02) | DRG 644 ==
LOC: INTOOBSV 23:29 → 3S 23:29 → OBSVTOIN 04-14 09:45
PROVIDERS: ADMIT Internal Medicine; ATTEND Internal Medicine
DX: E06.3 Autoimmune thyroiditis (principal); G93.49 Other encephalopathy; E44.0 Moderate protein-calorie malnutrition; N30.00 Acute cystitis without hematuria; Z68.1 Body mass index [BMI] 19.9 or less, adult; E78.5 Hyperlipidemia, unspecified; I10 Essential (primary) hypertension; J44.9 Chronic obstructive pulmonary disease, unspecified; K21.9 Gastro-esophageal reflux disease without esophagitis; Z66 Do not resuscitate; M62.50 Muscle wasting and atrophy, not elsewhere classified, unspecified site; Z51.5 Encounter for palliative care
CPT/HCPCS: 36415; 80053; 81001; 82962; 84439; 84481; 85027; G0378; G0379; J2060; J2270; J2300; J3490; J7512